=== PATIENT | female | born 1935 | race Two or more races ===

== ENCOUNTER 2019-07-25 19:47 | Emergency (ER) | payer MEDICARE, OTHER, SELFPAY ==
--- NOTE | ~2019-07-25 | CT_ITS ---
EXAMINATION: CT cervical spine wo con EXAM DATE: 07/25/2019 20:26 INDICATION: Fall, left posterior head injury and thin subdural hematoma. TECHNIQUE: Spiral CT of the cervical spine was performed without contrast. Axial images were reviewe d. Coronal and sagittal reformatted images were also reviewed. The dose-length product (DLP) for thi s examination was 115.53 mGy-cm. The exposure was tailored according to patient size (auto mA exposu re control), and iterative reconstruction (ASIR) was used as additional dose reduction technique. Th ere is no prior study for comparison. FINDINGS: There is no evidence of acute cervical fracture. The odontoid process is intact. Pre-dens space is normal. Prevertebral soft tissue is normal. There are no soft tissue abnormalities identi fied. The vertebral bodies are aligned. There is moderate lower cervical disc disease. Some advan tali right-sided predominant facet arthropathy. Small sclerotic focus within the left T1 pedicle proba jonatan bone [place]. There is a tiny left apical pneumothorax. IMPRESSION: 1. Tiny left apical pneumothorax. 2. No acute cervical findings. I discussed pneumothorax with Dr. Lisseth Elizondo MD at 07/25/2019 20:35 PET FEEDER. Reviewed, dictated and finalized at location A. FEEDER IMPRESSION: 1. Tiny left apical pneumothorax. 2. No acute cervical findings. I discussed pneumothorax with Dr. Lisseth Elizondo MD at 07/25/2019 20:35 PET FEEDER .
--- NOTE | ~2019-07-25 | XR_ITS ---
EXAMINATION: [id number] EXAM DATE: 07/25/2019 20:46 INDICATION: Fall, left rib pain laterally. TECHNIQUE: Frontal projection of the upper left ribs, frontal projection of the lower left ribs, obli que projection of the left ribs, frontal chest x-ray(s) for interpretation. There is no prior study for comparison. FINDINGS: Difficult to identify the tiny left-sided pneumothorax seen on CT scan. There are acute lef t fourth-seventh rib fractures laterally with mild displacement. Possible acute nondisplaced left eig hth rib fracture as well. There is no focal acute air space disease. There are no pleural effusions. Cardiomediastinal silhouette is normal. There is aortic arterial sclerosis. There are bony degenerati ve changes. IMPRESSION: 1. Can't identify tiny left apical pneumothorax seen on CT. Consider follow-up chest x-ray. 2. Left fourth-seventh rib fractures laterally. Possible nondisplaced eighth rib fracture. Reviewed, dictated and finalized at location A. CAL SCIENTIST IMPRESSION: 1. Can't identify tiny left apical pneumothorax seen on CT. Consider follow-up chest x-ray. 2. Left fourth-seventh rib fractures laterally. Possible nondisplaced eighth r ib fracture.
--- NOTE | ~2019-07-25 | CT_ITS ---
EXAMINATION: CT brain wo [facility] EXAM DATE: 07/25/2019 20:26 INDICATION: Fell. Posterior head injury, generalized neck pain. Temporary loss of consciousness. TECHNIQUE: Spiral CT of the head was performed without contrast. Axial, coronal and sagittal images were reviewed. The dose-length product (DLP) for this examination was 605.33 mGy-cm. The exposure w as tailored according to patient size, and iterative reconstruction (ASIR) was used as additional dos e reduction technique. Comparison is made to prior examination from 08/23/2008. FINDINGS: There is a thin acute subdural hematoma along the right side of the falx, measuring 3 mm in maximal thickness. No other acute hemorrhage within the head. Mild to moderate microangiopathy and m ild cerebral atrophy. Bilateral cataract surgery. There is small to moderate-sized left-sided scalp c ontusion. No underlying calvarial fracture. IMPRESSION: 1. Thin acute right-sided subdural hematoma along the falx. 2. Age-related findings. I discussed subdural hematoma with Lisseth Elizondo MD at 07/25/2019 20:32 BARTENDER MANAGER . Reviewed, dictated and finalized at location A. ENDER MANAGER IMPRESSION: 1. Thin acute right-sided subdural hematoma along the falx. 2. Age-related findings. I discussed subdural hematoma with Lisseth Elizondo MD at 07/25/2019 20:32 CS [place] .
--- NOTE | ~2019-07-25 | XR_ITS ---
EXAMINATION: XR hip LT 2V w AP pelvis EXAM DATE: 07/25/2019 20:46 INDICATION: Initial encounter following injury, with pain of the left hip. Fall. TECHNIQUE: Left hip frontal, crosstable lateral and 'frog-leg' projections for interpretation. Fronta l projection pelvis. Comparison is made to prior examination from 05/03/2019. FINDINGS: Smooth left hip femoral head contour, no radiographic evidence of avascular necrosis. The re are 3 left hip lag screws in position, were present on prior study. There is moderate symmetric bi lateral hip primary osteoarthritis. There are no acute fractures or dislocations identified. There i s no subcutaneous gas. The soft tissue is unremarkable. IMPRESSION: No acute osseous findings. Reviewed, dictated and finalized at location A. PACK INSPECTOR IMPRESSION: No acute osseous findings.
[2019-07-25 19:50] VITALS: BP 142/87; PULSE 78; RESP 18; TEMP 36.6; O2SAT 94
[2019-07-25 19:51] VITALS: BP 142/87; PULSE 77; RESP 20; O2SAT 92
[2019-07-25 19:52] VITALS: RESP 20
--- NOTE | 2019-07-25 20:01 | ED.FALL ---
HPI - Fall General Chief Complaint: Fall Stated Complaint: fall down stairs Time Seen by Provider: 07/25/19 20:02 Source: patient and family () Mode of arrival: EMS Limitations: no limitations History of Present Illness HPI Narrative: An 83 y/o female, with a PMHx of dementia, presents to the ED, via EMS, after a fall today. Per , he was downstairs when he heard a big crash . He found the pt unconscious on her left side at the bottom of the first set of 6 stairs. Pt was unconscious for about 45 seconds and pt states that she does not remember the fall. Pt did not get up and ambulate after the fall and waited for EMS to arrive to move. Pt is at her baseline in the ED bed. Pt is on ASA. She reports left rib pain, left shoulder pain, and a HI, but denies SOB, ABD pain, and numbness/tingling. Pt has a C-collar in place. Fall from: down stairs (#) Place fall occurred: home Loss of consciousness: yes Length of LOC: second(s) (45) Related Data Home Medications Medication Instructions Recorded Confirmed folic acid 1 mg tablet 1 mg PO DAILY 05/13/19 levothyroxine 88 mcg tablet 88 mcg PO DAILY 05/13/19 memantine 5 mg tablet 5 mg PO BID 05/13/19 methotrexate sodium 2.5 mg tablet 2.5 mg PO WEEKLY tablet 05/13/19 pantoprazole 40 mg tablet,delayed 40 mg PO QAM 05/13/19 release raloxifene 60 mg tablet 60 mg PO DAILY 05/13/19 tizanidine 2 mg tablet 2 mg PO .QHS PRN tablet 05/13/19 tramadol 50 mg tablet 50 mg PO Q8H PRN tablet 05/13/19 Allergies Allergy/AdvReac Type Severity Reaction Status Date / Time sulfamethizole Allergy Unknown Unknown Verified 07/20/19 14:34 sulfamethoxazole Allergy Unknown UNKNOWN Verified 07/20/19 14:34 trimethoprim Allergy Unknown Unknown Verified 07/20/19 14:34 Review of Systems Review of Systems: All systems reviewed & are unremarkable except as noted in HPI and below Constitutional: Comments: Reports: a fall Respiratory: Respiratory: Denies dyspnea Gastrointestinal: Gastrointestinal: Denies abdominal pain Musculoskeletal: Comments: Reports: left rib pain, left shoulder pain Neurologic: Denies numbness Comments: Reports: LOC, HI [facility] Past Medical History Medical History (Updated 07/25/19 @ 21:51 by Lisseth Elizondo MD) Aortic stenosis with trileaflet valve Dementia Hip fracture, left Impaired gait Memory loss Mixed hyperlipidemia Osteopenia Other specified hypothyroidism Pulmonary nodule, right Rheumatoid arthritis involving multiple sites with positive rheumatoid factor Seasonal allergies Spinal stenosis, 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 neurogenic claudication Status post fracture of left hip Surgical History Surgical History History of arthroplasty of left hip History of total right knee replacement Family History Family History Father Family history of lung cancer Mother Family history of emphysema Other Family history of arthritis Family history of malignant neoplasm Hypertension Social History Social History Smoking status: Never smoker Second hand tobacco smoke exposure: No Alcohol intake: current Substance use: never Substance use type: does not use Gender identity (if verbalized by the patient): Female Comments PCP: Dr. Lassiter Exam Narrative: Exam Narrative: GENERAL: Well-appearing, well-nourished, and in no acute distress. HEAD: Normocephalic, left posterior scalp hematoma EYES: PERRLA and EOMI, conjunctiva clear without discharge EARS: TM's clear bilaterally without erythema or dullness NOSE: Nares clear, no rhinorrhea or epistaxis THROAT:Mucous membranes moist, Oropharynx normal without erythema, exudate, peritonsillar swelling or fluctuance NECK:in c collar, no spine tenderness RESPIRATORY: No respiratory distress, Airway patent, Respirations non-labored, Clear to auscul
--- NOTE | 2019-07-25 20:08 | ECG_ITS ---
Measurements Intervals [place] Rate: 72 P: 11 IN: 137 QRS: -30 QRSD: 98 T: 64 QT: 437 QTc: 481 Interpretive Statements SINUS RHYTHM BASELINE ARTIFACT- I, III, AVL NORMAL ECG Electronically Signed On 07-26-2019 6:48:22 PATIENT SERVICES REP by Moises Bojorquez D.O.
[2019-07-25] MEDS: MORPHINE SULFATE 4 MG/ML INJ IV PUSH (20:15)
[2019-07-25] MEDS: ONDANSETRON INJ 4 MG/2 ML VIAL IV PUSH (20:15)
[2019-07-25 20:56] LABS: Basophils Percent Auto 0.2 % (0.2-1.2); Eosinophils Percent Auto 0.2 % (0-4.4); Hematocrit 39.5 % (37.0-47.0); Hemoglobin 12.9 g/dL (12.0-15.0); Immature Granulocyte Absolute 0.13 K/mm3 (0.00-0.031); Immature Granulocyte Percent A 1.5 % (0-0.5); Lymphocytes Absolute Auto 1.54 K/mm3 (0.9-3.2); Lymphocytes Percent Auto 18.1 % (18.3-44.2); Mean Corpuscular HGB Conc 32.7 g/dl (32-36); Mean Corpuscular Hemoglobin 29.7 pg (26-34); Mean Corpuscular Volume 90.8 fl (80-100); Mean Platelet Volume 10.9 fl (7.4-10.4); Monocytes Absolute Auto 0.8 K/mm3 (0.1-0.6); Monocytes Percent Auto 9.6 % (2.6-8.5); Neutrophils Percent Auto 70.4 % (45.5-73.1); Platelet Count Result 182 k/mm3 (150-375); Red Blood Count 4.35 M/mm3 (4.2-5.4); Red Cell Distribution Width 12.9 % (11.5-14.5); White Blood Count 8.5 K/mm3 (4.5-10.0)
[2019-07-25 21:09] LABS: Alanine Aminotransferase 23 U/L (4-35); Alkaline Phosphatase 69 U/L (38-126); Aspartate Amino Transferase 37 U/L (14-36); Bilirubin,Total 0.3 mg/dL (0.2-1.3); Blood Urea Nitrogen 17 mg/dL (7-17); Carbon Dioxide 31 mmol/L (22-30); Chloride 96 mmol/L (98-107); Estimated Glomerular Filt Rate 53; Glucose 114 mg/dL (65-105); Magnesium 2.1 mg/dL (1.6-2.3); Potassium 3.7 mmol/L (3.4-5.0); Sodium 135 mmol/L (137-145)
[2019-07-25 21:11] LABS: Prothrombin Time 12.9 Seconds (11.1-14.7)
[2019-07-25 21:12] LABS: Partial Thromboplastin Time 27.5 SECONDS (22.3-36.8)
[2019-07-25 21:20] LABS: Troponin I < 0.012 ng/mL (0.000-0.034)
[2019-07-25 21:23] VITALS: BP 154/95; PULSE 74; RESP 20; O2SAT 100
[2019-07-25] MEDS: levETIRAcetam 1000MG/NACL100ML 1,000 MG/100 ML BAG 400 MG IVPB (21:41)
[2019-07-25 21:58] VITALS: BP 154/95; PULSE 75; RESP 20; O2SAT 100
== END 2019-07-25 22:01 | disposition short-term general hospital (02) ==
PROVIDERS: Emergency Provider General Practice; PCP Family Medicine
DX: S06.5X1A Traumatic subdural hemorrhage with loss of consciousness of 30 minutes or less, initial encounter (principal); S22.42XA Multiple fractures of ribs, left side, initial encounter for closed fracture; F03.90 Unspecified dementia, unspecified severity, without behavioral disturbance, psychotic disturbance, mood disturbance, and anxiety; E78.2 Mixed hyperlipidemia; M85.80 Other specified disorders of bone density and structure, unspecified site; M05.89 Other rheumatoid arthritis with rheumatoid factor of multiple sites; Z96.651 Presence of right artificial knee joint; Z79.82 Long term (current) use of aspirin; W10.9XXA Fall (on) (from) unspecified stairs and steps, initial encounter
CPT/HCPCS: 36415; 70450; 71101; 72125; 73502; 73521; 80053; 83735; 84484; 85025; 85610; 85730; 93005; 96365; 96375; 99291; J1953; J2270; J2405; L0140

== ENCOUNTER 2019-10-26 10:42 | Outpatient (CLI) | payer MEDICARE, OTHER, SELFPAY ==
--- NOTE | ~2019-10-26 | XR_ITS ---
XR hand LT 2V, XR wrist LT 2V 10/26/2019 14:48 Indication: Left hand and wrist pain after fall. Bruising posteriorly. Procedure: 2 views of the left hand and 2 views left wrist Comparison: No prior studies for comparison. Findings: Osteopenia. There is mild-moderate polyarticular osteoarthritis of the left wrist and hand, most advanced at the triscaphe, first CMC and first MCP joints. There is loose bodies adjacent to th e first CMC joint. No acute fracture or traumatic malalignment. Impression: 1: Mild-moderate polyarticular osteoarthritis. Reviewed, dictated and finalized at location A. Impression: 1: Mild-moderate polyarticular osteoarthritis. Impression: 1: Mild-moderate polyarticular osteoarthritis.
== END 2019-10-26 10:43 | disposition home or self-care (01) ==
LOC: ANHIMG 10:51
PROVIDERS: PCP Family Medicine; Visit Provider Family Medicine
DX: T14.90XA Injury, unspecified, initial encounter (principal); R52 Pain, unspecified; M19.032 Primary osteoarthritis, left wrist
CPT/HCPCS: 73100; 73120

== ENCOUNTER 2019-11-11 14:24 | Outpatient (CLI) | payer MEDICARE, OTHER, SELFPAY ==
--- NOTE | ~2019-11-11 | XR_ITS ---
XR femur LT min 2V DATE: 11/11/2019 14:48 INDICATION: Fall 5 days ago. Pain, ecchymosis TECHNIQUE: AP and lateral views of left femur COMPARISON: None FINDINGS: There are 3 pins through the proximal left femur. There is left knee arthroplasty. Diffuse osteopenia. There are some patchy sclerotic densities in the distal femoral shaft which may be due to bone infarc t or less likely benign cartilaginous tumor. No recent fracture or dislocation, periosteal reaction or bone destruction is evident. IMPRESSION: No recent fracture or dislocation Postoperative changes of the left hip and knee Reviewed, dictated and finalized at location A.
--- NOTE | ~2019-11-11 | XR_ITS ---
XR pelvis 1-2V DATE: 11/11/2019 14:48 INDICATION: Fall 5 days ago. Pelvic pain, ecchymosis. TECHNIQUE: AP view COMPARISON: 11/11/2019 left femur 07/25/2019 pelvis and left hip FINDINGS: There are 3 pins again noted in the proximal left femur. No pelvic fracture or bone destruction is evident. Normal alignment at the pubic symphysis and sacroi liac joints. There is a prominent amount of fecal material within the colon and rectum. IMPRESSION: Status post pinning of proximal left femur No pelvic fracture detected Prominent amount fecal material in the rectum and colon Reviewed, dictated and finalized at location A.
== END 2019-11-11 14:25 | disposition home or self-care (01) ==
LOC: ANHIMG 14:35
PROVIDERS: PCP Family Medicine; Visit Provider Family Medicine
DX: R58 Hemorrhage, not elsewhere classified (principal)
CPT/HCPCS: 72170; 73552

== ENCOUNTER 2020-08-07 09:43 | Outpatient (CLI) | payer MEDICARE, OTHER, SELFPAY ==
[2020-08-07 10:08] LABS: Basophils Percent Auto 0.4 % (0.2-1.2); Eosinophils Absolute Auto 0.1 K/mm3 (0-0.3); Hematocrit 38.7 % (37.0-47.0); Hemoglobin 12.4 g/dL (12.0-15.0); Immature Granulocyte Absolute 0.04 K/mm3 (0.00-0.031); Immature Granulocyte Percent A 0.8 % (0-0.5); Lymphocytes Absolute Auto 1.79 K/mm3 (0.9-3.2); Lymphocytes Percent Auto 37.2 % (18.3-44.2); Mean Corpuscular Hemoglobin 30.6 pg (26-34); Mean Corpuscular Volume 95.6 fl (80-100); Mean Platelet Volume 10.3 fl (7.4-10.4); Monocytes Absolute Auto 0.7 K/mm3 (0.1-0.6); Monocytes Percent Auto 13.9 % (2.6-8.5); Neutrophils Absolute Auto 2.2 K/mm3 (1.3-6.7); Neutrophils Percent Auto 46.7 % (45.5-73.1); Platelet Count Result 211 k/mm3 (150-375); Red Blood Count 4.05 M/mm3 (4.2-5.4); Red Cell Distribution Width 14.1 % (11.5-14.5); White Blood Count 4.8 K/mm3 (4.5-10.0)
[2020-08-07 11:04] LABS: Alanine Aminotransferase 16 U/L (4-35); Albumin Level 3.9 g/dL (3.5-5.1); Alkaline Phosphatase 55 U/L (38-126); Anion Gap 5 mmol/L (8-16); Aspartate Amino Transferase 27 U/L (14-36); Bilirubin,Total 0.4 mg/dL (0.2-1.3); Blood Urea Nitrogen 18 mg/dL (7-17); Calcium 9.3 mg/dL (8.4-10.2); Carbon Dioxide 31 mmol/L (22-30); Chloride 106 mmol/L (98-107); Estimated Glomerular Filt Rate 47; Glucose 81 mg/dL (65-105); Potassium 4.2 mmol/L (3.4-5.0); Sodium 142 mmol/L (137-145)
[2020-08-07 11:38] LABS: Free T4 Free Thyroxine 1.22 ng/mL (0.78-2.19)
[2020-08-07 12:00] LABS: Vitamin B12 > 1000.0 pg/mL (239-931)
[2020-08-10 11:43] LABS: Vitamin D 1,25 (OH)2 Total 42 pg/mL (18-72); Vitamin D2 1,25 (OH)2 <8 pg/mL; Vitamin D3 1,25 (OH)2 42 pg/mL
== END 2020-08-07 09:44 | disposition home or self-care (01) ==
PROVIDERS: PCP Family Medicine; Visit Provider Physician Assistant
DX: E55.9 Vitamin D deficiency, unspecified (principal); I10 Essential (primary) hypertension; E03.8 Other specified hypothyroidism; G62.9 Polyneuropathy, unspecified
CPT/HCPCS: 36415; 80053; 82607; 82652; 84439; 84443; 85025

== ENCOUNTER 2020-08-31 13:59 | Outpatient (CLI) | payer MEDICARE, OTHER, SELFPAY ==
--- NOTE | ~2020-08-31 | DEXA_ITS ---
Bone Density Report Name: Hortencia Loaiza Age: 84 Sex: Female Ethnicity: White Date of : 1935 Indication: osteopenia; height loss; hysterectomy; Referring Provider: Ernestina Veloz Study: Bone densitometry was performed. Exam Date: August 31, 2020 Accession number: [id number] Bone Density: Region BMD T-score Z-score Classification AP Spine (L1-L4) 1.048 0.0 2.8 Normal Femoral Neck (Right) 0.572 -2.5 0.0 Osteoporosis Total Hip (Right) 0.677 -2.2 0.1 Osteopenia World Health Organization criteria for BMD impression classify patients as: Normal (T-score at or above -1.0), Osteopenia (T-score between -1.0 and -2.5), or Osteoporosis (T-score at or below -2.5). 10-year Fracture Risk: FRAX not reported because: Some T-score for Spine Total or Hip Total or Femoral Neck at or below -2.5 Previous Exams: Region Exam Age BMD T-score BMD Change BMD Change Date g/cm2 vs Baseline vs Previous AP Spine(L1-L4) 08/31/2020 84 1.048 0.0 0.010(1.0%) 0.010(1.0%) 08/23/2014 78 1.038 -0.1 Total Hip(Right) 08/31/2020 84 0.677 -2.2 -0.023(-3.3%)# -0.076(-10.1%) 08/23/2014 78 0.753 -1.5 0.053(7.6%)# 0.053(7.6%)# 09/06/2009 73 0.700 -2.0 *Denotes significance at 95% confidence level, LSC for AP Spine = 0.022 g/cm2, LSC for Total Hip = 0.027 g/cm2 Clinical Information Provided by Patient: Has used the following medications: Vitamin D, Calcium Has the following medical conditions: Hysterectomy Patient maximum height was 68 Menopause Age: 47 Drinks caffeinated beverages Onset of menses at age 16 Number of children 3 Impression: The patient has osteoporosis, based on the Right Femoral Neck T-score. The BMD for the Total Hip(Right) decreased, changing by -10.1% since the last DXA exam. Discussion: INCREASED RISK OF FRACTURE. BONE DENSITY IS UNDESIRABLY LOW AT ONE OR MORE SKELETAL SITES, CONSISTENT WITH POSTMENOPAUSAL OSTEOPOROSIS. This patient's lowest T-score meets the World Health Organization's (WHO) criteria for osteoporosis at one or more sites (T-score -2.5 or below). In untreated patients, the risk of osteoporotic fracture increases approximately two-fold for each 1.0 SD decrease in T-score. Low bone density is not the only risk factor for fracture; also consider factors such as patient's age, frailty or poor health, risk of falling, risk of injury, previous osteoporotic fracture, family history of osteoporosis, cigarette smoking, low body weight, etc. Not everyone with low bone mineral density has os
== END 2020-08-31 14:00 | disposition home or self-care (01) ==
LOC: ANHIMG 14:01
PROVIDERS: PCP Family Medicine; Visit Provider Physician Assistant
DX: Z78.0 Asymptomatic menopausal state (principal); M81.0 Age-related osteoporosis without current pathological fracture; M85.851 Other specified disorders of bone density and structure, right thigh
CPT/HCPCS: 77080

== ENCOUNTER 2022-03-08 13:51 | Outpatient (CLI) | payer MEDICARE, OTHER, SELFPAY ==
[2022-03-08 14:47] LABS: Alanine Aminotransferase 20 U/L (6-35); Albumin Level 4.1 g/dL (3.5-5.1); Alkaline Phosphatase 68 U/L (38-126); Anion Gap 9 mmol/L (8-16); Aspartate Amino Transferase 25 U/L (14-36); Bilirubin,Total 0.3 mg/dL (0.2-1.3); Blood Urea Nitrogen 15 mg/dL (7-17); Calcium 9.1 mg/dL (8.4-10.2); Carbon Dioxide 28 mmol/L (22-30); Chloride 102 mmol/L (98-107); Estimated Glomerular Filt Rate 47; Glucose 103 mg/dL (65-110); Potassium 3.9 mmol/L (3.4-5.0); Sodium 139 mmol/L (137-145)
[2022-03-08 15:37] LABS: Free T4 Free Thyroxine 1.22 ng/mL (0.78-2.19)
[2022-03-09 07:44] LABS: Basophils Percent Auto 0.3 % (0.2-1.2); Eosinophils Percent Auto 0.5 % (0-4.4); Hematocrit 41.7 % (37.0-47.0); Hemoglobin 13.1 g/dL (12.0-15.0); Immature Granulocyte Absolute 0.04 K/mm3 (0.00-0.031); Immature Granulocyte Percent A 0.6 % (0-0.5); Lymphocytes Percent Auto 29.2 % (18.3-44.2); Mean Corpuscular HGB Conc 31.4 g/dl (32-36); Mean Corpuscular Hemoglobin 30.7 pg (26-34); Mean Corpuscular Volume 97.7 fl (80-100); Mean Platelet Volume 11.4 fl (7.4-10.4); Monocytes Absolute Auto 1.1 K/mm3 (0.1-0.6); Neutrophils Absolute Auto 3.2 K/mm3 (1.3-6.7); Neutrophils Percent Auto 52.4 % (45.5-73.1); Platelet Count Result 230 k/mm3 (150-375); Red Blood Count 4.27 M/mm3 (4.2-5.4); Red Cell Distribution Width 14.1 % (11.5-14.5); White Blood Count 6.2 K/mm3 (4.5-10.0)
== END 2022-03-08 13:52 | disposition home or self-care (01) ==
LOC: ANHLAB 13:58
PROVIDERS: PCP Family Medicine; Visit Provider Nurse Practitioner Gerontology
DX: M85.80 Other specified disorders of bone density and structure, unspecified site (principal); N18.30 Chronic kidney disease, stage 3 unspecified; M32.9 Systemic lupus erythematosus, unspecified; I12.9 Hypertensive chronic kidney disease with stage 1 through stage 4 chronic kidney disease, or unspecified chronic kidney disease; F03.90 Unspecified dementia, unspecified severity, without behavioral disturbance, psychotic disturbance, mood disturbance, and anxiety; R79.89 Other specified abnormal findings of blood chemistry; F32.9 Major depressive disorder, single episode, unspecified; E78.2 Mixed hyperlipidemia
CPT/HCPCS: 36415; 80053; 84439; 84443; 84480; 85025

== ENCOUNTER 2022-05-11 21:47 | Emergency (ER) | payer MEDICARE, OTHER, SELFPAY ==
--- NOTE | ~2022-05-11 | CT_ITS ---
EXAMINATION: CT brain wo con INDICATION: Weakness and lethargy COMPARISON: 07/25/2019 TECHNIQUE: Standard unenhanced head CT. The dose-length product (DLP) was 605.33 mGy-cm. The mA was a djusted according to patient size. Iterative reconstruction technique was employed. FINDINGS: There is no acute intraparenchymal hemorrhage. No evidence of mass lesion. No evidence of a cute infarction. There is moderate periventricular and subcortical hypodensity probably related to sm all vessel ischemic disease. There is moderate prominence of the sulci and ventricles related to cere bral atrophy. Intracranial calcified cerebral atherosclerosis is noted. There are no extra-axial luiz ections. There is no mass effect or midline shift. Changes in the globes are likely from ocular lens surgery. There is moderate mucosal thickening in the right maxillary sinus and ethmoidal air cells. IMPRESSION: 1. No acute intracranial abnormality. 2. Age related findings. Reviewed, dictated and finalized at location A. NE SERVICE MANAGER
--- NOTE | ~2022-05-11 | XR_ITS ---
EXAMINATION: XR chest 2V DATE: 05/12/2022 01:10 INDICATION: Cough and weakness TECHNIQUE: AP and lateral views of the chest are obtained. COMPARISON: 04/23/2018 FINDINGS: The lungs are free of acute opacities. There is scarring in the lung apices. No pleural eff usion or pneumothorax. The cardiomediastinal silhouette is normal. There is mild thoracic spondylosis . Healed left-sided rib fractures are noted. IMPRESSION: 1. No acute cardiopulmonary abnormality. Reviewed, dictated and finalized at location A. R TRANSFORMER REPAIRER
[2022-05-11 21:49] VITALS: BP 146/77; PULSE 76; RESP 18; TEMP 37.6; O2SAT 94
--- NOTE | 2022-05-11 21:51 | ECG_ITS ---
Measurements Intervals [place] Rate: 89 P: 10 CA: 150 QRS: -35 QRSD: 84 T: 58 QT: 373 QTc: 455 Interpretive Statements SINUS RHYTHM INFERIOR INFARCT, AGE INDETERMINATE BORDERLINE ST-T WAVE ABNORMALITY- ANTEROLAT/HIGH LAT LEADS BASELINE ARTIFACT- I, III, AVL ABNORMAL ECG COMPARED TO ECG 07/25/2019 19:55:47 INFERIOR INFARCT, AGE INDETERMINATE NOW PRESENT Electronically Signed On 05-12-2022 7:14:05 SET UP MECHANIC STAMPING MACHINES by Moises Bojorquez D.O.
[2022-05-11 22:15] LABS: Basophils Percent Auto 0.3 % (0.2-1.2); Eosinophils Percent Auto 0.3 % (0-4.4); Hematocrit 41.2 % (37.0-47.0); Hemoglobin 13.6 g/dL (12.0-15.0); Immature Granulocyte Absolute 0.03 K/mm3 (0.00-0.031); Immature Granulocyte Percent A 0.8 % (0-0.5); Lymphocytes Absolute Auto 0.64 K/mm3 (0.9-3.2); Lymphocytes Percent Auto 16.3 % (18.3-44.2); Mean Corpuscular Hemoglobin 30.8 pg (26-34); Mean Corpuscular Volume 93.4 fl (80-100); Mean Platelet Volume 10.6 fl (7.4-10.4); Monocytes Absolute Auto 0.7 K/mm3 (0.1-0.6); Monocytes Percent Auto 17.6 % (2.6-8.5); Neutrophils Absolute Auto 2.5 K/mm3 (1.3-6.7); Neutrophils Percent Auto 64.7 % (45.5-73.1); Platelet Count Result 174 k/mm3 (150-375); Red Blood Count 4.41 M/mm3 (4.2-5.4); Red Cell Distribution Width 14.2 % (11.5-14.5); White Blood Count 3.9 K/mm3 (4.5-10.0)
[2022-05-11 22:25] LABS: Alanine Aminotransferase 24 U/L (6-35); Albumin Level 4.4 g/dL (3.5-5.1); Alkaline Phosphatase 65 U/L (38-126); Anion Gap 11 mmol/L (8-16); Aspartate Amino Transferase 31 U/L (14-36); Bilirubin,Total 0.6 mg/dL (0.2-1.3); Blood Urea Nitrogen 12 mg/dL (7-17); Calcium 8.5 mg/dL (8.4-10.2); Carbon Dioxide 27 mmol/L (22-30); Chloride 97 mmol/L (98-107); Estimated CRCL calculation 45 ml/min; Estimated Glomerular Filt Rate 60; Glucose 121 mg/dL (65-110); Potassium 4.1 mmol/L (3.4-5.0); Sodium 135 mmol/L (137-145)
--- NOTE | 2022-05-11 22:56 | ED.WEAKNESS ---
HPI - Weakness General Chief complaint: Weakness <Eli Aponte PA-C - Last Filed: 05/12/22 03:21> Stated complaint: weakness <Eli Aponte PA-C - Last Filed: 05/12/22 03:21> Time Seen by Provider: 05/11/22 22:50 <Eli Aponte PA-C - Last Filed: 05/12/22 03:21> History of Present Illness HPI Narrative: Patient is an 86-year-old female with a history of Alzheimer's dementia, on donezepil, hypothyroidism, here for evaluation with her for weakness today. History largely obtained from . Tells me that patient has been unable to complete her ADLs today, has had decreased appetite, and has felt too weak to walk. States that yesterday she was feeling normal aside from a cough. Patient tells me that she just feels blah . She denies any chest pain, shortness of breath, abdominal pain, nausea or vomiting, diarrhea or constipation. Patient's is experiencing upper respiratory symptoms. tells me that patient has a history of dementia and prior hip fracture and is chronically unstable on her feet but is usually able to ambulate without assistance. <Eli Aponte PA-C - Last Filed: 05/12/22 03:21> Related Data Allergies/Adverse reactions: Allergies Allergy/AdvReac Type Severity Reaction Status Date / Time sulfamethizole Allergy Unknown Unknown Verified 03/08/22 13:21 sulfamethoxazole Allergy Unknown UNKNOWN Verified 03/08/22 13:21 trimethoprim Allergy Unknown Unknown Verified 03/08/22 13:21 <Eli Aponte PA-C - Last Filed: 05/12/22 03:21> Review of Systems Review of Systems: Gen.: Reports weakness. Denies fevers or chills Eyes: Denies eye pain or visual change ENT: Denies congestion Respiratory: Denies shortness of breath or cough CV: Denies chest pain or palpitations GI: Denies abdominal pain nausea, emesis or diarrhea denies burning, urgency, frequency or hematuria Musculoskeletal: Denies back pain or muscle pain Neuro: Denies numbness, tingling, weakness or focal weakness Skin: Denies rash Except as documented, all other systems reviewed and negative <Eli Aponet PA-C - Last Filed: 05/12/22 03:21> [facility] Past Medical History Medical History: Medical History Aortic stenosis with trileaflet valve Balance problem Benign essential HTN Dementia Dementia arising in the senium and presenium GERD (gastroesophageal reflux disease) Hematoma, subdural, with loss of consciousness, traumatic Hip fracture, left Impaired gait Lupus (systemic lupus erythematosus) Major depressive disorder, recurrent, moderate Memory loss Mixed hyperlipidemia Osteopenia Other specified hypothyroidism Pulmonary nodule, right Rheumatoid arthritis involving multiple sites with positive rheumatoid factor Seasonal allergies Spinal stenosis, 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 neurogenic claudication Status post fracture of left hip <Eli Aponte PA-C - Last Filed: 05/12/22 03:21> Surgical History Surgical History: Surgical History History of arthroplasty of left hip History of total right knee replacement <Eli Aponte PA-C - Last Filed: 05/12/22 03:21> Family History Family History: Family History Father Family history of lung cancer Mother Family history of emphysema Other Family history of arthritis Family history of malignant neoplasm Hypertension <Eli Aponte PA-C - Last Filed: 05/12/22 03:21> Social History Social History: Social History (Updated 03/08/22 @ 13:22 by Kathia Dumont) Social History: Smoking status: Never smoker Second hand tobacco smoke exposure: No Alcohol intake: current Alcohol use details: Occasionally Substance use: never Substance use type: does not use Gender
--- NOTE | 2022-05-11 22:58 | PC.NURSE ---
Talked to Stephy in lab at 22:57 to add on TSH
[2022-05-11 23:01] LABS: Influenza A QL RT-PCR Negative (Negative); Influenza B QL RT-PCR Negative (Negative); SARS-CoV-2 RNA PCR Negative
[2022-05-11] MEDS: SODIUM CHLORIDE 0.9% IV 1,000 ML 999 ML IV CONT (23:30)
[2022-05-12 00:03] LABS: Creatine Kinase 32 U/L (30-135); Lactic Acid Reflex 0.9 mmol/L (0.7-2.0)
[2022-05-12 00:59] LABS: Appearance Urine Clear (Clear); Bilirubin Urine 1+ (Negative); Blood Urine 2+ (Negative); Color Urine Yellow (Yellow); Glucose Urine UA Negative (Negative); Ketones Urine 1+ mg/dL (Negative); Leukocyte Esterase Ur Negative LEU/UL (Negative); Nitrate Urine Negative (Negative); Protein Urine 1+ mg/dL (Negative); Specific Grav Ur 1.025 (1.001-1.035); pH Urine 5.5 (5.0-9.0)
[2022-05-12 01:19] LABS: Bacteria Urine Trace /hpf; Mucus Urine Rare /lpf; Squamous Epithelial Cell Urine Rare /hpf (Few); WBC Urine 0-3 /hpf
[2022-05-12 01:21] LABS: Add Urine Microscopic? YES
[2022-05-12] MEDS: SODIUM CHLORIDE 0.9% IV 500 ML 999 ML IV CONT (01:44)
[2022-05-12 01:45] VITALS: BP 137/78; PULSE 62; RESP 18; O2SAT 95
--- NOTE | 2022-05-12 03:05 | PC.NURSE ---
Pt ambulated in room with assist of walker, which she uses at home.
== END 2022-05-12 04:40 | disposition home or self-care (01) ==
PROVIDERS: Physician Assistant; Emergency Provider Emergency Medicine; PCP Family Medicine
DX: B34.9 Viral infection, unspecified (principal); G30.9 Alzheimer's disease, unspecified; F02.80 Dementia in other diseases classified elsewhere, unspecified severity, without behavioral disturbance, psychotic disturbance, mood disturbance, and anxiety; E03.9 Hypothyroidism, unspecified; I10 Essential (primary) hypertension; E78.2 Mixed hyperlipidemia; Z20.822 Contact with and (suspected) exposure to COVID-19
CPT/HCPCS: 36415; 70450; 71046; 80053; 81001; 82550; 83605; 84443; 85025; 87636; 93005; 96360; 96361; 99284; J7030; J7040

== ENCOUNTER 2022-07-24 14:44 | Outpatient (CLI) | payer MEDICARE, OTHER, SELFPAY ==
--- NOTE | ~2022-07-24 | XR_ITS ---
EXAMINATION: XR chest 2V Exam Date/Time: 07/24/2022 15:20 INSTRUMENT REPAIRER HISTORY: N18.30 - Chronic kidney disease, stage 3 unspecified Comparison: 07/12/2021. RESULT: Lines, tubes, and devices: None. Lungs and pleura: Ill-defined, approximate the 3 cm rounded opacity in the right lower lung, possibl y located within the inferior right middle lobe along the major fissure. Senescent changes. Mild bila teral apical pleural scarring. Cardiomediastinal silhouette: Stable. Other: No acute osseous or upper abdominal finding. Old left rib fractures. IMPRESSION: Rounded opacity, possibly within the right middle lobe, may represent the consolidation of infection, rounded atelectasis, or nodule/mass. If there are current symptoms of infection, recommend follow-up after appropriate therapy to demonstrate resolution. Otherwise consider CT of the chest with contras t for further evaluation. Reviewed, dictated and finalized at location K. RUMENT REPAIRER IMPRESSION: Rounded opacity, possibly within the right middle lobe, may represent the conso lidation of infection, rounded atelectasis, or nodule/mass. If there are curren t symptoms of infection, recommend follow-up after appropriate therapy to demon strate resolution. Otherwise consider CT of the chest with contrast for further evaluation.
[2022-07-24 15:22] LABS: Basophils Percent Auto 0.1 % (0.2-1.2); Eosinophils Percent Auto 0.1 % (0-4.4); Hematocrit 41.1 % (37.0-47.0); Hemoglobin 13.4 g/dL (12.0-15.0); Immature Granulocyte Absolute 0.06 K/mm3 (0.00-0.031); Immature Granulocyte Percent A 0.8 % (0-0.5); Lymphocytes Absolute Auto 1.66 K/mm3 (0.9-3.2); Lymphocytes Percent Auto 22.1 % (18.3-44.2); Mean Corpuscular HGB Conc 32.6 g/dl (32-36); Mean Corpuscular Hemoglobin 30.8 pg (26-34); Mean Corpuscular Volume 94.5 fl (80-100); Mean Platelet Volume 10.7 fl (7.4-10.4); Monocytes Absolute Auto 1.1 K/mm3 (0.1-0.6); Monocytes Percent Auto 15.2 % (2.6-8.5); Neutrophils Absolute Auto 4.6 K/mm3 (1.3-6.7); Neutrophils Percent Auto 61.7 % (45.5-73.1); Platelet Count Result 195 k/mm3 (150-375); Red Blood Count 4.35 M/mm3 (4.2-5.4); Red Cell Distribution Width 14.3 % (11.5-14.5); White Blood Count 7.5 K/mm3 (4.5-10.0)
[2022-07-24 15:34] LABS: Alanine Aminotransferase 19 U/L (6-35); Albumin Level 4.2 g/dL (3.5-5.1); Alkaline Phosphatase 60 U/L (38-126); Anion Gap 7 mmol/L (8-16); Aspartate Amino Transferase 25 U/L (14-36); Bilirubin,Total 0.8 mg/dL (0.2-1.3); Blood Urea Nitrogen 11 mg/dL (7-17); Carbon Dioxide 30 mmol/L (22-30); Chloride 100 mmol/L (98-107); Estimated Glomerular Filt Rate 60; Glucose 111 mg/dL (65-110); Potassium 4.1 mmol/L (3.4-5.0); Sodium 137 mmol/L (137-145)
[2022-07-24 16:04] LABS: Total Triiodothyronine (T3) 1.05 NG/ML (0.97-1.69)
[2022-07-24 16:43] LABS: Hemoglobin A1C 5.4 % (<5.7)
[2022-07-24 16:49] LABS: Free T4 Free Thyroxine 1.32 ng/mL (0.78-2.19)
[2022-07-27 21:15] LABS: Vitamin D 1,25 (OH)2 Total 60 pg/mL (18-72); Vitamin D2 1,25 (OH)2 <8 pg/mL; Vitamin D3 1,25 (OH)2 60 pg/mL
== END 2022-07-24 14:45 | disposition home or self-care (01) ==
LOC: ANHLAB 14:46
PROVIDERS: PCP Family Medicine; Visit Provider Nurse Practitioner Gerontology
DX: G30.9 Alzheimer's disease, unspecified (principal); F02.80 Dementia in other diseases classified elsewhere, unspecified severity, without behavioral disturbance, psychotic disturbance, mood disturbance, and anxiety; R79.89 Other specified abnormal findings of blood chemistry; M05.79 Rheumatoid arthritis with rheumatoid factor of multiple sites without organ or systems involvement; E03.8 Other specified hypothyroidism; R41.3 Other amnesia; E55.9 Vitamin D deficiency, unspecified; E78.2 Mixed hyperlipidemia; R30.0 Dysuria; I12.9 Hypertensive chronic kidney disease with stage 1 through stage 4 chronic kidney disease, or unspecified chronic kidney disease; N18.30 Chronic kidney disease, stage 3 unspecified
CPT/HCPCS: 36415; 71046; 80053; 82607; 82652; 83036; 84439; 84443; 84480; 85025

== ENCOUNTER 2022-07-25 12:19 | Outpatient (CLI) | payer MEDICARE, OTHER, SELFPAY ==
[2022-07-25 12:39] LABS: Appearance Urine Slightly Cloudy (Clear); Bilirubin Urine Negative (Negative); Blood Urine 2+ (Negative); Color Urine Yellow (Yellow); Glucose Urine UA Negative (Negative); Ketones Urine Negative (Negative); Leukocyte Esterase Ur Negative LEU/UL (Negative); Nitrate Urine Negative (Negative); Protein Urine Negative (Negative); Specific Grav Ur 1.015 (1.001-1.035); Urobilinogen Urine 0.2 mg/dL (<2.0); pH Urine 5.5 (5.0-9.0)
[2022-07-25 12:49] LABS: Mucus Urine Rare /lpf; RBC Urine 0-2 /hpf (0-2); WBC Urine 0-3 /hpf
[2022-07-25 12:58] LABS: Add Urine Microscopic? YES
== END 2022-07-25 12:20 | disposition home or self-care (01) ==
LOC: ANHLAB 12:22
PROVIDERS: PCP Family Medicine; Visit Provider Family Medicine
DX: R30.0 Dysuria (principal)
CPT/HCPCS: 81001

== ENCOUNTER 2022-08-06 14:23 | Outpatient (CLI) | payer MEDICARE, OTHER, SELFPAY ==
--- NOTE | 2022-08-06 14:36 | ECHO_ITS ---
Patient Info Name: Hortencia Loaiza Age: 86 years : 1935 Gender: Female Ht: 67 in Wt: 144 lbs BSA: 1.76 m2 HR: 89 bpm BP: 163 / 89 mmHg Heart Rhythm: Sinus Rhythm Technical Quality: Fair Exam Date: 08/06/2022 2:59 PM Exam Location: [facility] Patient Status: Outpatient Admit Date: 08/06/2022 Staff Ordering Physician: Kathia Jones NP Hand Candy Molder: Tawny Mack RDCS Attending Provider: Kathia Jones NP Referring Physician: Karen NOBLE; Exam Type: CA echo doppler color flow Study Info Indications I35.0 - Nonrheumatic aortic (valve) stenosis Complete two-dimensional, color flow and Doppler transthoracic echocardiogram is performed. Summary 1. Complete two-dimensional, color flow and Doppler transthoracic echocardiogram is performed. 2. Left ventricular chamber dimension is normal. 3. Left ventricular systolic function is normal, estimated at 65-70%. 4. The left ventricular diastolic function is grade I diastolic dysfunction. 5. E/e' 12 is mildly elevated. 6. There is moderate aortic valve sclerosis. 7. There is very mild aortic valve stenosis with a peak velocity of 206 cm/s, mean gradient of 10 mmHg, and aortic valve area of 2.6 cm2. 8. The mitral valve has mildly thickened leaflets and moderately calcified annulus. Left Ventricle E/e' 12 is mildly elevated. Left ventricular chamber dimension is normal. Left ventricular systolic function is normal, estimated at 65-70%. The left ventricular diastolic function is grade I diastolic dysfunction. Right Ventricle Right ventricular systolic function is normal and with normal TAPSE 1.9 cm. Right ventricular chamber dimension is normal. Left Atria Left atrial chamber dimension is normal. Right Atria Right atrial chamber dimension is normal. Aortic Valve There is very mild aortic valve stenosis with a peak velocity of 206 cm/s, mean gradient of 10 mmHg, and aortic valve area of 2.6 cm2. The aortic valve is trileaflet. There is moderate aortic valve sclerosis. There is no aortic valve regurgitation. Pulmonic Valve There is no pulmonic regurgitation. Mitral Valve The mitral valve has mildly thickened leaflets and moderately calcified annulus. There is no mitral valve stenosis. There is no mitral valve regurgitation. Tricuspid Valve There is no tricuspid valve regurgitation. Pericardium/Pleural There is no pericardial effusion. Inferior Vena Cava Normal inferior vena cava with >50% collapse upon inspiration consistent with normal right atrial pressure, 5 mmHg. Aorta The aortic root size at the sinus of Valsalva is normal. Left Ventricular Outflow Tract Name Value Normal LVOT 2D LVOT Diameter 2.0 cm LVOT Doppler LVOT Peak Gradient 7 mmHg LVOT Mean Gradient 4 mmHg LVOT VTI 26 cm LVOT VTI/AV VTI Ratio 0.8 LVOT Stroke Volume 81 ml LVOT CO 6.6 l/min LVOT CI 3.7 l/min/m2 Pulmoni
== END 2022-08-06 14:24 | disposition home or self-care (01) ==
LOC: ANHCARD 14:25
PROVIDERS: PCP Family Medicine; Visit Provider Nurse Practitioner Gerontology
DX: I35.0 Nonrheumatic aortic (valve) stenosis (principal); Z98.890 Other specified postprocedural states
CPT/HCPCS: 93306

== ENCOUNTER 2022-08-15 09:50 | Outpatient (CLI) | payer MEDICARE, OTHER, SELFPAY ==
[2022-08-15 10:24] LABS: Appearance Urine Cloudy (Clear); Bilirubin Urine 1+ (Negative); Blood Urine 3+ (Negative); Color Urine Yellow (Yellow); Glucose Urine UA Negative (Negative); Ketones Urine 1+ mg/dL (Negative); Leukocyte Esterase Ur 2+ LEU/UL (Negative); Nitrate Urine Negative (Negative); Protein Urine 3+ mg/dL (Negative); pH Urine 6.5 (5.0-9.0)
[2022-08-15 10:27] LABS: Bacteria Urine 2+ /hpf; Mucus Urine Rare /lpf; RBC Urine >75 /hpf (0-2); Squamous Epithelial Cell Urine Few /hpf (Few); WBC Clumps Urine Present /HPF; WBC Urine >75 /hpf
[2022-08-15 10:32] LABS: Add Urine Microscopic? YES
== END 2022-08-15 09:51 | disposition home or self-care (01) ==
LOC: ANHLAB 09:52
PROVIDERS: PCP Family Medicine; Visit Provider Nurse Practitioner Gerontology
DX: R31.9 Hematuria, unspecified (principal)
CPT/HCPCS: 81001; 87077; 87086; 87186

== ENCOUNTER 2022-08-30 10:31 | Outpatient (CLI) | payer MEDICARE, OTHER, SELFPAY ==
--- NOTE | ~2022-08-30 | XR_ITS ---
EXAMINATION: XR chest 2V 08/30/2022 10:53 INDICATION: Follow-up right chest asymmetries PROCEDURE: 2 view chest COMPARISON: 07/24/2022 FINDINGS: The lungs are clear. Interval resolution of focal asymmetry in the right middle lobe, likel y resolving atelectasis or pneumonia. The cardiomediastinal silhouette is within normal limits. Ther e are no pleural effusions. There is no pneumothorax suspected. IMPRESSION: 1: NO ACUTE CARDIOPULMONARY DISEASE. Reviewed, dictated and finalized at location B. AR CARE AIDE
== END 2022-08-30 10:32 | disposition home or self-care (01) ==
PROVIDERS: PCP Family Medicine; Visit Provider Nurse Practitioner Gerontology
DX: R93.89 Abnormal findings on diagnostic imaging of other specified body structures (principal)
CPT/HCPCS: 71046

== ENCOUNTER 2023-01-23 13:55 | Outpatient (CLI) | payer MEDICARE, OTHER, SELFPAY ==
[2023-01-23 14:20] LABS: Basophils Percent Auto 0.3 % (0.2-1.2); Eosinophils Percent Auto 0.4 % (0-4.4); Hematocrit 42.5 % (37.0-47.0); Hemoglobin 13.8 g/dL (12.0-15.0); Immature Granulocyte Absolute 0.06 K/mm3 (0.00-0.031); Immature Granulocyte Percent A 0.8 % (0-0.5); Lymphocytes Absolute Auto 2.02 K/mm3 (0.9-3.2); Lymphocytes Percent Auto 28.5 % (18.3-44.2); Mean Corpuscular HGB Conc 32.5 g/dl (32-36); Mean Corpuscular Hemoglobin 30.8 pg (26-34); Mean Corpuscular Volume 94.9 fl (80-100); Mean Platelet Volume 11.1 fl (7.4-10.4); Monocytes Absolute Auto 1.1 K/mm3 (0.1-0.6); Monocytes Percent Auto 15.2 % (2.6-8.5); Neutrophils Absolute Auto 3.9 K/mm3 (1.3-6.7); Neutrophils Percent Auto 54.8 % (45.5-73.1); Platelet Count Result 219 k/mm3 (150-375); Red Blood Count 4.48 M/mm3 (4.2-5.4); Red Cell Distribution Width 13.8 % (11.5-14.5); White Blood Count 7.1 K/mm3 (4.5-10.0)
[2023-01-23 14:29] LABS: Alanine Aminotransferase 21 U/L (6-35); Albumin Level 4.5 g/dL (3.5-5.1); Alkaline Phosphatase 60 U/L (38-126); Anion Gap 8 mmol/L (8-16); Aspartate Amino Transferase 30 U/L (14-36); Bilirubin,Total 0.5 mg/dL (0.2-1.3); Blood Urea Nitrogen 15 mg/dL (7-17); Calcium 9.4 mg/dL (8.4-10.2); Carbon Dioxide 31 mmol/L (22-30); Chloride 99 mmol/L (98-107); Estimated Glomerular Filt Rate 59; Glucose 99 mg/dL (65-110); Potassium 4.7 mmol/L (3.4-5.0); Sodium 138 mmol/L (137-145)
== END 2023-01-23 13:56 | disposition home or self-care (01) ==
LOC: ANHLAB 13:57
PROVIDERS: PCP Family Medicine; Visit Provider Physician Assistant
DX: M85.80 Other specified disorders of bone density and structure, unspecified site (principal); E03.8 Other specified hypothyroidism; I10 Essential (primary) hypertension; E78.2 Mixed hyperlipidemia
CPT/HCPCS: 36415; 80053; 84443; 85025

== ENCOUNTER 2023-02-11 15:58 | Outpatient (NON) | payer MEDICARE, OTHER, SELFPAY ==
[2023-02-11 16:34] LABS: Appearance Urine Cloudy (Clear); Bacteria Urine 4+ /hpf; Bilirubin Urine Negative (Negative); Blood Urine 1+ (Negative); Color Urine Yellow (Yellow); Glucose Urine UA Negative (Negative); Ketones Urine Negative (Negative); Leukocyte Esterase Ur 2+ LEU/UL (Negative); Nitrate Urine Positive (Negative); Non Pathogenic Casts 0-2; Protein Urine Negative (Negative); Specific Grav Ur 1.018 (1.001-1.035); Squamous Epithelial Cell Urine None seen /hpf (Few); WBC Urine 21-50 /hpf
[2023-02-11 16:39] LABS: Add Urine Microscopic? YES
== END 2023-02-11 15:59 | disposition home or self-care (01) ==
LOC: ANHLAB 15:59
PROVIDERS: PCP Family Medicine; Visit Provider Physician Assistant
DX: R31.9 Hematuria, unspecified (principal)
CPT/HCPCS: 81001; 87077; 87086; 87186

== ENCOUNTER 2023-06-10 11:28 | Inpatient (IN) | payer MEDICARE, OTHER, SELFPAY ==
[2023-06-10] VITALS (15 sets, daily range): BP systolic 101–151; BP diastolic 60–76; PULSE 69–86; RESP 16–22; TEMP 36.6–36.9; O2SAT 91–99
--- NOTE | ~2023-06-10 | XR_ITS ---
EXAMINATION: XR chest 2V DATE: 06/10/2023 12:48 INDICATION: Weakness TECHNIQUE: AP and lateral views of the chest are obtained. COMPARISON: None available FINDINGS: There are minimal airspace opacities of the lingula. No pleural effusion or pneumothorax. T he cardiomediastinal silhouette is normal. There is moderate thoracic spondylosis. Healed left-sided rib fractures are noted. IMPRESSION: 1. Lingular airspace opacity, consistent with atelectasis versus pneumonia. Reviewed, dictated and finalized at location L. EDORING SUPERVISOR
--- NOTE | ~2023-06-10 | CT_ITS ---
EXAMINATION: CT brain wo con DATE: 06/10/2023 17:00 INDICATION: AMS . TECHNIQUE: Computed tomography (CT) of the head was performed without intravenous contrast. The mA wa s adjusted according to patient size. Iterative reconstruction technique was employed. The dose-lengt h product was 605.33 mGy-cm. COMPARISON: 05/12/2022. FINDINGS: No acute intracranial hemorrhage or extra-axial fluid collection. No hydrocephalus, mass, or herniation. No acute ischemic infarct. Unremarkable dural venous sinus attenuation. No acute osseous abnormality. The aerated spaces are clear. Moderate atrophy and chronic white matter change. Atherosclerotic intracranial calcification. Bilater al lens replacements. IMPRESSION: No acute intracranial process. Reviewed, dictated and finalized at location K. CHARMER
--- NOTE | 2023-06-10 12:04 | ECG_ITS ---
Measurements Intervals [place] Rate: 85 P: 41 CT: 138 QRS: -57 QRSD: 81 T: 73 QT: 389 QTc: 464 Interpretive Statements SINUS RHYTHM LEFT VENTRICULAR HYPERTROPHY AND ST-T CHANGE [VOLTAGE CRITERIA PLUS ST/T ABNORMALITY] INFERIOR MYOCARDIAL INFARCTION , OF INDETERMINATE AGE WITH POSTERIOR EXTENSION [40+ ms Q WAVE AND/OR ST/T ABNORMALITY IN II/aV ABNORMAL ECG COMPARED TO ECG 05/11/2022 22:54:14 LEFT VENTRICULAR HYPERTROPHY NOW PRESENT ST (T WAVE) DEVIATION NOW PRESENT Electronically Signed On 06-11-2023 10:28:07 MANUFACTURING LAB TECHNICIAN by Joni Chawla M.D.
[2023-06-10 12:34] LABS: Basophils Percent Auto 0.2 % (0.2-1.2); Hematocrit 40.7 % (37.0-47.0); Hemoglobin 13.3 g/dL (12.0-15.0); Immature Granulocyte Absolute 0.02 K/mm3 (0.00-0.031); Immature Granulocyte Percent A 0.4 % (0-0.5); Immature Platelet Fraction Pct 8.6 % (0.9-11.2); Lymphocytes Absolute Auto 1.24 K/mm3 (0.9-3.2); Lymphocytes Percent Auto 27.2 % (18.3-44.2); Mean Corpuscular HGB Conc 32.7 g/dl (32-36); Mean Corpuscular Hemoglobin 29.9 pg (26-34); Mean Corpuscular Volume 91.5 fl (80-100); Mean Platelet Volume 11.6 fl (7.4-10.4); Monocytes Percent Auto 21.1 % (2.6-8.5); Neutrophils Absolute Auto 2.3 K/mm3 (1.3-6.7); Neutrophils Percent Auto 51.1 % (45.5-73.1); Platelet Count Result 123 k/mm3 (150-375); Red Blood Count 4.45 M/mm3 (4.2-5.4); Red Cell Distribution Width 13.4 % (11.5-14.5); White Blood Count 4.6 K/mm3 (4.5-10.0)
[2023-06-10 12:41] LABS: Alanine Aminotransferase 27 U/L (6-35); Albumin Level 3.8 g/dL (3.5-5.1); Alkaline Phosphatase 57 U/L (38-126); Anion Gap 7 mmol/L (8-16); Aspartate Amino Transferase 55 U/L (14-36); Bilirubin,Total 0.5 mg/dL (0.2-1.3); Blood Urea Nitrogen 14 mg/dL (7-17); Calcium 8.4 mg/dL (8.4-10.2); Carbon Dioxide 25 mmol/L (22-30); Chloride 102 mmol/L (98-107); Estimated CRCL calculation 43 ml/min; Estimated Glomerular Filt Rate > 60; Glucose 103 mg/dL (65-110); Potassium 3.7 mmol/L (3.4-5.0); Sodium 134 mmol/L (137-145)
--- NOTE | 2023-06-10 16:20 | ED.WEAKNESS ---
HPI - Weakness General Chief complaint: Weakness Stated complaint: unable to walk Time Seen by Provider: 06/10/23 14:47 History of Present Illness HPI Narrative: Patient is an 87-year-old female presenting with altered mental status. Patient's is at bedside and assists with the history. Patient moved into memory care about 10 days ago. Patient's states that at baseline she is able to walk, feed herself, take care for basic ADLs. States that he was out of town for the last week and when he got back she was unable to take care of any of her ADLs. States that she is diffusely weak and is not willing to try to walk. States that she will not feed herself but she is willing to eat if someone else feeds her. He is concerned that she has a UTI. States that she has had a productive cough. She denies any pain. Related Data Home Medications Medication Instructions Recorded Confirmed memantine 10 mg tablet 10 mg PO DAILY 06/11/23 06/11/23 methotrexate sodium 2.5 mg tablet 2.5 mg PO 3XW 06/11/23 06/11/23 Allergies Allergy/AdvReac Type Severity Reaction Status Date / Time sulfamethizole Allergy Unknown Unknown Verified 06/10/23 15:53 sulfamethoxazole Allergy Unknown UNKNOWN Verified 06/10/23 15:53 trimethoprim Allergy Unknown Unknown Verified 06/10/23 15:53 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 and presenium GERD (gastroesophageal reflux disease) Hematoma, subdural, with loss of consciousness, traumatic Hip fracture, left Impaired gait Lupus (systemic lupus erythematosus) Major depressive disorder, recurrent, moderate Memory loss Mixed hyperlipidemia Osteopenia Other specified hypothyroidism Pulmonary nodule, right Rheumatoid arthritis involving multiple sites with positive rheumatoid factor Seasonal allergies Spinal stenosis, 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 neurogenic claudication Status post fracture of left hip Surgical History Surgical History History of arthroplasty of left hip History of total right knee replacement Family History Family History Father Family history of lung cancer Mother Family history of emphysema Other Family history of arthritis Family history of malignant neoplasm Hypertension Social History Social History Social History: Smoking status: Never smoker Second hand tobacco smoke exposure: No Alcohol intake: never Alcohol use details: Occasionally Substance use: never Substance use type: does not use Do You Feel Safe in your Home?: Yes Lack of Transportation: No Lack of Food: Never True Current Housing: I Have Housing Concerned About Future Housing: No Difficulty Paying Gas/Electric Bills: No Difficulty Paying for Meds: No Currently Unemployed: No Education: High School Diploma/GED Difficulty w/ Childcare or Family Care: No Living arrangements: with family Occupation/Education: retired Gender identity (if verbalized by the patient): Female Sexual Orientation (if Verbalized by the Patient): Straight or Heterosexual Spiritual care concerns: No Exam Narrative: GENERAL: Elderly female lying in bed in no acute distress HEAD: Normocephalic, atraumatic. EYES: PERRLA and EOMI. ENT: grossly unremarkable NECK: Supple. CHEST: Clear to auscultation. No respiratory distress. HEART: Regular rate and rhythm ABDOMEN: Soft, nontender, nondistended EXTREMITIES: Normal range of motion. No edema. SKIN: Warm, dry, no rash. NEURO: Alert and oriented x3. 5/5 strength in all e
[2023-06-10] MEDS: SODIUM CHLORIDE 0.9% IV 1,000 ML 999 ML IV CONT (16:35)
--- NOTE | 2023-06-10 16:45 | ECG_ITS ---
Measurements Intervals [place] Rate: 76 P: 55 [place]: 158 QRS: -36 QRSD: 85 T: 76 QT: 423 QTc: 476 Interpretive Statements SINUS RHYTHM MARKED LEFT AXIS DEVIATION [QRS AXIS < -30] POSSIBLE RIGHT VENTRICULAR CONDUCTION DELAY [RSR (QR) IN V1/V2] MINIMAL ST DEPRESSION [0.025+ mV ST DEPRESSION] ABNORMAL ECG COMPARED TO ECG 06/10/2023 12:10:39 LEFT-AXIS DEVIATION NOW PRESENT Electronically Signed On 06-11-2023 10:33:53 PLASTIC SEWER by Joni Chwala M.D.
[2023-06-10 16:48] LABS: Creatine Kinase 545 U/L (30-135); Lipase 160 U/L (23-300)
[2023-06-10 17:01] LABS: Troponin I < 0.012 ng/mL (0.000-0.034)
[2023-06-10 17:38] LABS: Appearance Urine Cloudy (Clear); Bacteria Urine 4+ /hpf; Bilirubin Urine Negative (Negative); Blood Urine 2+ (Negative); Color Urine Yellow (Yellow); Glucose Urine UA Negative (Negative); Ketones Urine Trace mg/dL (Negative); Leukocyte Esterase Ur 1+ LEU/UL (Negative); Nitrate Urine Positive (Negative); Protein Urine 1+ mg/dL (Negative); Specific Grav Ur 1.024 (1.001-1.035); Squamous Epithelial Cell Urine Occasional /hpf (Few); Urobilinogen Urine 0.2 mg/dL (<2.0); WBC Urine 21-50 /hpf; pH Urine 5.5 (5.0-9.0)
[2023-06-10 17:43] LABS: Influenza A QL RT-PCR Negative (Negative); Influenza B QL RT-PCR Negative (Negative); RSV RNA, RT-PCR Negative (Negative); SARS-CoV-2 RNA PCR Positive (Negative)
[2023-06-10 17:51] LABS: Add Urine Microscopic? YES
[2023-06-10] MEDS: cefTRIAXone 2 GM/NS 100 ML 2 GM/100 ML BAG IVPB (18:32)
--- NOTE | 2023-06-10 19:07 | PC.NURSE ---
This RN spoke w/ Kelly OLEA at [place] at 1740 w/update.
--- NOTE | 2023-06-10 19:17 | PC.NURSE ---
EKG was not due until 3hr trop was drawn. 3 hr trop was delayed d/t delay in baseline trop draw.
--- NOTE | 2023-06-10 19:21 | PM.IMHP ---
H&P: HPI History of Present Illness Date/Time: 06/10/23 19:21 Chief Complaint: generalized weakness and confusion of 3 days Narrative: ?Patient is an 87-year-old female presenting with altered mental status.? Patient's is at bedside and assists with the history.? Patient moved into memory care about 10 days ago.? Patient's states that at baseline she is able to walk, feed herself, take care for basic ADLs.? States that he was out of town for the last week and when he got back she was unable to take care of any of her ADLs.? States that she is diffusely weak and is not willing to try to walk.? States that she will not feed herself but she is willing to eat if someone else feeds her.? He is concerned that she has a UTI.? States that she has had a productive cough.? She denies any pain. She was evaluated in the ED and found to have UTI and also tested positive to covid-19. She has been given rocephin 2 gms IV and also IVF. She has improved per her but still weak. 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 and presenium GERD (gastroesophageal reflux disease) Hematoma, subdural, with loss of consciousness, traumatic Hip fracture, left Impaired gait Lupus (systemic lupus erythematosus) Major depressive disorder, recurrent, moderate Memory loss Mixed hyperlipidemia Osteopenia Other specified hypothyroidism Pulmonary nodule, right Rheumatoid arthritis involving multiple sites with positive rheumatoid factor Seasonal allergies Spinal stenosis, 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 neurogenic claudication Status post fracture of left hip Surgical History Surgical History History of arthroplasty of left hip History of total right knee replacement Family History Family History Father Family history of lung cancer Mother Family history of emphysema Other Family history of arthritis Family history of malignant neoplasm Hypertension Social History Social History Social History: Smoking status: Never smoker Second hand tobacco smoke exposure: No Alcohol intake: current Alcohol use details: Occasionally Substance use: never Substance use type: does not use Lack of Transportation: No Lack of Food: Never True Current Housing: I Have Housing Concerned About Future Housing: No Difficulty Paying Gas/Electric Bills: No Difficulty Paying for Meds: No Currently Unemployed: YES Education: Decline to Answer Difficulty w/ Childcare or Family Care: No Living arrangements: with family Occupation/Education: retired Gender identity (if verbalized by the patient): Female Sexual Orientation (if Verbalized by the Patient): Straight or Heterosexual Meds Home Medications and Allergies Home Medications Medication Instructions Recorded Confirmed Type memantine 10 mg tablet See Rx Instructions .Route 12/23/22 05/26/23 Rx .COMPLEX #180 tabs donepezil 10 mg tablet 10 mg PO QHS #90 tabs 03/11/23 05/26/23 Rx duloxetine 30 mg capsule,delayed 30 mg PO DAILY #90 caps 03/11/23 05/26/23 Rx release folic acid 1 mg tablet 1 mg PO DAILY #90 tabs 03/11/23 05/26/23 Rx levothyroxine 88 mcg tablet See Rx Instructions .Route 03/11/23 05/26/23 Rx .COMPLEX #90 tabs lisinopril 5 mg tablet 5 mg PO DAILY #90 tabs 03/11/23 05/26/23 Rx methotrexate sodium 2.5 mg tablet 2.5 mg PO .COMPLEX #36 tabs 03/11/23 05/26/23 Rx pantoprazole 40 mg tablet,delayed 40 mg PO QAM #90 tabs 03/11/23 05/26/23 Rx release (Protonix) raloxifene 60 mg tablet (Octavia
[2023-06-10 20:35] LABS: Basophils Percent Auto 0.2 % (0.2-1.2); Hematocrit 35.3 % (37.0-47.0); Hemoglobin 11.4 g/dL (12.0-15.0); Immature Granulocyte Absolute 0.03 K/mm3 (0.00-0.031); Immature Granulocyte Percent A 0.7 % (0-0.5); Immature Platelet Fraction Pct 7.6 % (0.9-11.2); Lymphocytes Absolute Auto 1.71 K/mm3 (0.9-3.2); Lymphocytes Percent Auto 38.9 % (18.3-44.2); Mean Corpuscular HGB Conc 32.3 g/dl (32-36); Mean Corpuscular Hemoglobin 29.8 pg (26-34); Mean Corpuscular Volume 92.4 fl (80-100); Mean Platelet Volume 11.9 fl (7.4-10.4); Monocytes Absolute Auto 0.9 K/mm3 (0.1-0.6); Neutrophils Absolute Auto 1.8 K/mm3 (1.3-6.7); Neutrophils Percent Auto 40.2 % (45.5-73.1); Platelet Count Result 107 k/mm3 (150-375); Red Blood Count 3.82 M/mm3 (4.2-5.4); Red Cell Distribution Width 13.4 % (11.5-14.5); White Blood Count 4.4 K/mm3 (4.5-10.0)
[2023-06-10 20:45] LABS: Anion Gap 5 mmol/L (8-16); Blood Urea Nitrogen 13 mg/dL (7-17); Calcium 7.8 mg/dL (8.4-10.2); Carbon Dioxide 27 mmol/L (22-30); Chloride 104 mmol/L (98-107); Estimated CRCL calculation 48 ml/min; Estimated Glomerular Filt Rate > 60; Glucose 93 mg/dL (65-110); Potassium 3.7 mmol/L (3.4-5.0); Sodium 136 mmol/L (137-145)
[2023-06-10 21:00] LABS: Troponin I 0.014 ng/mL (0.000-0.034)
[2023-06-10] MEDS: REMDESIVIR 200 MG/NS 250 ML 200 MG/250 ML BAG 250 MG IVPB (21:20)
--- NOTE | 2023-06-10 21:34 | PC.NURSE ---
Right before patient was going to be taken up. Patient stated she had to urinate. Upon staff trying to retrieve items to help patient urinate, patient was unable to hold urine and also had a bowel movement. Staff then proceeded to assist patient clean up and get new sheets, a new gown, and new linens.
--- NOTE | 2023-06-10 21:57 | ADMGEN ---
This patient, Hortencia Loaiza, was admitted to Medical Room 344-01. Patient/family oriented to hospital policies and general routines including ID bracelet, bed and alarms, visiting hours, pain management, procedures, bathroom and other care routines, personal items, smoking policy, room service/diet, and visiting hours. Information on how to activate the Rapid Response Team has been discussed. Patient/Family are encouraged to report perceived risks to care and to ask questions if they do not understand what they are told or what they should do.
[2023-06-11 05:01] VITALS: BP 153/73; PULSE 72; RESP 16; TEMP 36.4; O2SAT 97
[2023-06-11] MEDS: LEVOTHYROXINE SODIUM 88 MCG TABLET PO (05:50)
[2023-06-11] MEDS: SODIUM CHLORIDE 0.45% 1,000 ML 100 ML IV CONT ×2 (05:50→18:32)
[2023-06-11] MEDS: PANTOPRAZOLE 40 MG TABLET PO (09:28)
[2023-06-11] MEDS: MEMANTINE 10 MG TABLET PO (09:28)
[2023-06-11] MEDS: DULoxetine HCL 30 MG CAPSULE.DR PO (09:28)
[2023-06-11] MEDS: FOLIC ACID 1 MG TABLET PO (09:28)
[2023-06-11] MEDS: ENOXAPARIN 40 MG/0.4 ML SYRINGE SUB-Q (09:28)
[2023-06-11] MEDS: lisinopriL 5 MG TABLET PO (09:28)
--- NOTE | 2023-06-11 10:01 | PM.IMPN ---
Progress Note: A&P Assessment and Plan (1) UTI (urinary tract infection), bacterial: Code(s): N39.0 - Urinary tract infection, site not specified; A49.9 - Bacterial infection, unspecified Status: Acute Assessment and Plan: 06/11/23: UA showing 1+ protein, trace ketones, 2+ blood, positive nitrates, 1+ leukocytes, 3-5 urine RBCs, 21-50 urine wbc's, 4+ bacteria. Urine and blood cultures are pending Patient started on Rocephin (2) Acute COVID-19: Code(s): U07.1 - COVID-19 Status: Acute Assessment and Plan: 06/11/23: Currently on room air, denies shortness of breath or chest pain. She appears to be in no acute distress. Continue remdesivir. (3) Pulmonary infiltrate on chest x-ray: Code(s): R91.8 - Other nonspecific abnormal finding of lung field Status: Acute Assessment and Plan: 06/11/23: Chest x-ray showing lingular airspace opacity, consistent with atelectasis versus pneumonia Patient is COVID positive, not requiring any oxygen. Continue with Rocephin and remdesivir for now Time Spent With Patient Time with patient: Greater than 35 minutes Subjective Date/time seen: 06/11/23 10:01 Interval history: This is an 87 year old female who presented to the hospital on 06/10/23 with altered mental status. Patient was found to have UTI and COVID-19. Work up in hospital includes a chest x-ray that shown lingular airspace opacity, consistent with atelectasis versus pneumonia. She also had a head CT which did not show any acute intracranial process. UA revealed 1+ protein, trace ketones, 2+ blood, positive nitrates, 1+ leukocytes, 3-5 urine RBC's, 21-50 urine WBC's, 4+ bacteria. Respiratory panel + for Covid, negative for RSV, influenza. CBC was essentially negative. Na+ 134 with normal kidney function, CK elevated at 545, Troponin was essentially negative x2, AST slightly elevated at 55. Blood and urine cultures were obtained. Patient was given 1L NS, started on maintenance IVF, started on Rocephin, and Remdesivir. On examination patient is alert and oriented x3, sitting up in chair. Patient denies any fever, chills, nausea, vomiting, diarrhea, abdominal pain, shortness a breath, chest pain. VSS, she is afebrile, and currently on room air. Labs today reveal WBC 4.4, Hgb 11.4, Hct 35.3, Plt 107, Na+ 136, K+ 3.7, BUN 13, Creatinine 0.7. Urine and blood cultures are still pending. She will continue on remdesivir and Rocephin IV. Review of Systems Review of Systems: All systems reviewed & are unremarkable except as noted in HPI and below Constitutional: Constitutional: Reports as per HPI and Reports no additional constitutional complaints Eyes: Eyes: Reports as per HPI and Reports no additional eye complaints ENT: Reports system reviewed and no additional complaints, except as documented and Reports as per HPI Cardiovascular: Cardiovascular: Reports as per HPI and Reports no additional cardiovascular complaints Respiratory: Respiratory: Reports as per HPI and Reports no additional respiratory complaints Gastrointestinal: Gastrointestinal: Reports as per HPI and Reports no additional gastrointestinal complaints Genitourinary: Genitourinary: Reports no additional female genitourinary complaints and Reports as per HPI Musculoskeletal: Musculoskeletal: Reports no additional musculoskeletal complaints and Reports as per HPI Integumentary/Breasts: Skin/Breast: Reports system reviewed and no additional complaints, except as docu and Reports as per HPI Neurologic: Reports system reviewed and no additional complaints, except as documented and Reports as per HPI Psychiatric: Psychiatric: Reports no additional psychiatric complaints and Reports as per HPI Exam Narrative: General: In no acute distress, well nourished Head: atraumatic, no encephalopathy Eyes: EOMI, PERRLA, sclera clear ENT: moist mucous membranes, nasal passages clear Neck: supple, no JVD, no adenopathy, trachea
[2023-06-11] MEDS: RALOXIFENE HCL (*CHEMO) 60 MG TABLET PO (10:49)
[2023-06-11] MEDS: ARIPiprazole 5 MG TABLET PO (10:49)
[2023-06-11 14:00] VITALS: BP 131/73; PULSE 83; RESP 16; TEMP 36.4; O2SAT 95
[2023-06-11] MEDS: METHOTREXATE 2.5 MG TAB (*CHEMO) PO (15:48)
[2023-06-11 20:00] VITALS: PULSE 83; RESP 16; O2SAT 95
[2023-06-11] MEDS: REMDESIVIR 100 MG/NS 250 ML 100 MG/250 ML BAG 250 MG IVPB (21:21)
[2023-06-11] MEDS: DONEPEZIL HCL 10 MG TABLET PO (21:21)
[2023-06-11 22:00] VITALS: BP 139/75; PULSE 73; RESP 21; TEMP 36.3; O2SAT 100
[2023-06-12] MEDS: LEVOTHYROXINE SODIUM 88 MCG TABLET PO (05:35)
[2023-06-12] MEDS: SODIUM CHLORIDE 0.45% 1,000 ML 100 ML IV CONT (05:36)
[2023-06-12 06:00] VITALS: BP 144/83; PULSE 70; RESP 18; TEMP 36.1; O2SAT 97
[2023-06-12 07:45] LABS: Hematocrit 35.4 % (37.0-47.0); Hemoglobin 11.3 g/dL (12.0-15.0); Mean Corpuscular HGB Conc 31.9 g/dl (32-36); Mean Corpuscular Hemoglobin 30.1 pg (26-34); Mean Corpuscular Volume 94.1 fl (80-100); Mean Platelet Volume 12.2 fl (7.4-10.4); Platelet Count Result 106 k/mm3 (150-375); Red Blood Count 3.76 M/mm3 (4.2-5.4); Red Cell Distribution Width 13.4 % (11.5-14.5); White Blood Count 3.5 K/mm3 (4.5-10.0)
[2023-06-12] MEDS: RALOXIFENE HCL (*CHEMO) 60 MG TABLET PO (09:23)
[2023-06-12] MEDS: PANTOPRAZOLE 40 MG TABLET PO (09:23)
[2023-06-12] MEDS: lisinopriL 5 MG TABLET PO (09:23)
[2023-06-12] MEDS: MEMANTINE 10 MG TABLET PO (09:24)
[2023-06-12] MEDS: FOLIC ACID 1 MG TABLET PO (09:24)
[2023-06-12] MEDS: ENOXAPARIN 40 MG/0.4 ML SYRINGE SUB-Q (09:24)
[2023-06-12] MEDS: ARIPiprazole 5 MG TABLET PO (09:24)
[2023-06-12] MEDS: DULoxetine HCL 30 MG CAPSULE.DR PO (09:24)
--- NOTE | 2023-06-12 09:41 | PM.IMPN ---
Progress Note: A&P Assessment and Plan (1) UTI (urinary tract infection), bacterial: Code(s): N39.0 - Urinary tract infection, site not specified; A49.9 - Bacterial infection, unspecified Status: Acute Assessment and Plan: 06/11/23: UA showing 1+ protein, trace ketones, 2+ blood, positive nitrates, 1+ leukocytes, 3-5 urine RBCs, 21-50 urine wbc's, 4+ bacteria. Urine and blood cultures are pending Patient started on Rocephin 06/12/23: Urine culture showing c. coli on preliminary read Blood cultures showing no growth to date on preliminary read Continue Rocephin IV while waiting final read and susceptibilities. continue PT and OT care coordination consulted for outpatient rehab needs (2) Acute COVID-19: Code(s): U07.1 - COVID-19 Status: Acute Assessment and Plan: 06/11/23: Currently on room air, denies shortness of breath or chest pain. She appears to be in no acute distress. Continue remdesivir. 06/12/23: Will go ahead and discontinue remdesivir as she does may requirement continuation. She is currently on room air, she is no acute respiratory distress at this time. (3) Pulmonary infiltrate on chest x-ray: Code(s): R91.8 - Other nonspecific abnormal finding of lung field Status: Acute Assessment and Plan: 06/11/23: Chest x-ray showing lingular airspace opacity, consistent with atelectasis versus pneumonia Patient is COVID positive, not requiring any oxygen. Continue with Rocephin and remdesivir for now 06/12/23: Continue Rocephin, dc remdesivir as she has no clinical indications for its use. Time Spent With Patient Time with patient: 25 - 35 minutes Subjective Date/time seen: 06/12/23 09:41 Interval history: 05/12/23: This is an 87 year old female who presented to the hospital on 06/10/23 with altered mental status. Patient was found to have UTI and COVID-19. Work up in hospital includes a chest x-ray that shown lingular airspace opacity, consistent with atelectasis versus pneumonia. She also had a head CT which did not show any acute intracranial process. UA revealed 1+ protein, trace ketones, 2+ blood, positive nitrates, 1+ leukocytes, 3-5 urine RBC's, 21-50 urine WBC's, 4+ bacteria. Respiratory panel + for Covid, negative for RSV, influenza. CBC was essentially negative. Na+ 134 with normal kidney function, CK elevated at 545, Troponin was essentially negative x2, AST slightly elevated at 55. Blood and urine cultures were obtained. Patient was given 1L NS, started on maintenance IVF, started on Rocephin, and Remdesivir. On examination patient is alert and oriented x3, sitting up in chair. Patient denies any fever, chills, nausea, vomiting, diarrhea, abdominal pain, shortness a breath, chest pain. VSS, she is afebrile, and currently on room air. Labs today reveal WBC 4.4, Hgb 11.4, Hct 35.3, Plt 107, Na+ 136, K+ 3.7, BUN 13, Creatinine 0.7. Urine and blood cultures are still pending. She will continue on remdesivir and Rocephin IV. 05/13/23: On examination patient Is alert oriented x3, sitting in chair. She denies any nausea, vomiting,, abdominal pain, shortness a breath, chest pain.VSS, she is afebrile, currently on room air. Labs today reveal WBC 3.5, Hgb 11.3, Hct 35.4, Plt 106,Urine culture showing e. coli on preliminary read, blood cultures showing no growth on preliminary read. Patient currently on Rocephin and Remdesivir. We will go ahead discontinued the remdesivir patient is no longer needing requirement for this. We will continue to wait on the final read of the urine culture and sensitivities before changing Rocephin over to oral. Patient is still a moderate assist with ADLs and ambulating. She may need a short course rehab before returning back her memory care facility. She will continue to work with therapy here. Review of Systems Review of Systems: All systems reviewed & are unremarkable except as noted in HPI and below Co
[2023-06-12 09:55] LABS: Alanine Aminotransferase 24 U/L (6-35); Albumin Level 2.9 g/dL (3.5-5.1); Alkaline Phosphatase 49 U/L (38-126); Anion Gap 5 mmol/L (8-16); Aspartate Amino Transferase 42 U/L (14-36); Bilirubin,Total 0.3 mg/dL (0.2-1.3); Blood Urea Nitrogen 11 mg/dL (7-17); Calcium 7.8 mg/dL (8.4-10.2); Carbon Dioxide 26 mmol/L (22-30); Chloride 103 mmol/L (98-107); Estimated CRCL calculation 48 ml/min; Estimated Glomerular Filt Rate > 60; Glucose 75 mg/dL (65-110); Potassium 3.4 mmol/L (3.4-5.0); Sodium 134 mmol/L (137-145)
[2023-06-12 10:37] VITALS: BMI 23.5
[2023-06-12 14:00] VITALS: BP 101/61; PULSE 78; RESP 16; TEMP 36.6; O2SAT 97
[2023-06-12 20:00] VITALS: PULSE 78; RESP 16; O2SAT 97
[2023-06-12] MEDS: DONEPEZIL HCL 10 MG TABLET PO (20:35)
[2023-06-12 22:28] VITALS: BP 129/72; PULSE 74; RESP 16; TEMP 36.8; O2SAT 94
[2023-06-13 06:00] VITALS: BP 157/72; PULSE 67; RESP 16; TEMP 36; O2SAT 94
[2023-06-13 06:12] LABS: Hematocrit 35.1 % (37.0-47.0); Hemoglobin 11.5 g/dL (12.0-15.0); Immature Platelet Fraction Pct 7.9 % (0.9-11.2); Mean Corpuscular HGB Conc 32.8 g/dl (32-36); Mean Corpuscular Hemoglobin 29.7 pg (26-34); Mean Corpuscular Volume 90.7 fl (80-100); Mean Platelet Volume 11.6 fl (7.4-10.4); Platelet Count Result 112 k/mm3 (150-375); Red Blood Count 3.87 M/mm3 (4.2-5.4); Red Cell Distribution Width 13.2 % (11.5-14.5); White Blood Count 3.7 K/mm3 (4.5-10.0)
[2023-06-13 06:21] LABS: Alanine Aminotransferase 22 U/L (6-35); Alkaline Phosphatase 49 U/L (38-126); Anion Gap 6 mmol/L (8-16); Aspartate Amino Transferase 37 U/L (14-36); Bilirubin,Total 0.4 mg/dL (0.2-1.3); Blood Urea Nitrogen 10 mg/dL (7-17); Calcium 8.1 mg/dL (8.4-10.2); Carbon Dioxide 25 mmol/L (22-30); Chloride 104 mmol/L (98-107); Estimated CRCL calculation 48 ml/min; Estimated Glomerular Filt Rate > 60; Glucose 86 mg/dL (65-110); Potassium 3.2 mmol/L (3.4-5.0); Sodium 135 mmol/L (137-145)
[2023-06-13] MEDS: LEVOTHYROXINE SODIUM 88 MCG TABLET PO (06:30)
[2023-06-13 08:00] VITALS: PULSE 67; RESP 16; O2SAT 94
[2023-06-13] MEDS: RALOXIFENE HCL (*CHEMO) 60 MG TABLET PO (08:42)
[2023-06-13] MEDS: lisinopriL 5 MG TABLET PO (08:43)
[2023-06-13] MEDS: PANTOPRAZOLE 40 MG TABLET PO (08:43)
[2023-06-13] MEDS: DULoxetine HCL 30 MG CAPSULE.DR PO (08:43)
[2023-06-13] MEDS: ARIPiprazole 5 MG TABLET PO (08:43)
[2023-06-13] MEDS: MEMANTINE 10 MG TABLET PO (08:43)
[2023-06-13] MEDS: ENOXAPARIN 40 MG/0.4 ML SYRINGE SUB-Q (08:43)
[2023-06-13] MEDS: FOLIC ACID 1 MG TABLET PO (08:43)
[2023-06-13] MEDS: METHOTREXATE 2.5 MG TAB (*CHEMO) PO (08:44)
[2023-06-13] MEDS: CEFDINIR 300 MG CAPSULE PO ×2 (10:21→20:29)
[2023-06-13] MEDS: POTASSIUM CHLORIDE 20 MEQ ER TABLET 40 MEQ PO (10:21)
[2023-06-13 14:00] VITALS: BP 129/75; PULSE 81; RESP 14; TEMP 36.4; O2SAT 99
--- NOTE | 2023-06-13 14:00 | P.PNIM_ITS ---
Progress Note: A&P Assessment and Plan (1) UTI (urinary tract infection), bacterial: Code(s): N39.0 - Urinary tract infection, site not specified; A49.9 - Bacterial infection, unspecified Status: Acute Assessment and Plan: 06/11/23: * UA showing 1+ protein, trace ketones, 2+ blood, positive nitrates, 1+ leukocytes, 3-5 urine RBCs, 21-50 urine wbc's, 4+ bacteria. * Urine and blood cultures are pending * Patient started on Rocephin 06/12/23: * Urine culture showing c. coli on preliminary read * Blood cultures showing no growth to date on preliminary read * Continue Rocephin IV while waiting final read and susceptibilities. * continue PT and OT * care coordination consulted for outpatient rehab needs 06/13/23: * Urine culture showing E coli on final read with susceptibilities back * Blood culture showing no growth to date * Rocephin changed to cefdinir today * Continue with PT and OT. She has been a moderate assist this admission. * Case management working on SNF placement prior to going back to her Memory Care at [facility], we are waiting insurance approval. * Plan for discharge in the morning (2) Acute COVID-19: Code(s): U07.1 - COVID-19 Status: Acute Assessment and Plan: 06/11/23: * Currently on room air, denies shortness of breath or chest pain. She appears to be in no acute distress. * Continue remdesivir. 06/12/23: * Will go ahead and discontinue remdesivir as she does may requirement continuation. * She is currently on room air, she is no acute respiratory distress at this time. 06/13/23: * No change to current treatment plan (3) Pulmonary infiltrate on chest x-ray: Code(s): R91.8 - Other nonspecific abnormal finding of lung field Status: Acute Assessment and Plan: 06/11/23: * Chest x-ray showing lingular airspace opacity, consistent with atelectasis versus pneumonia * Patient is COVID positive, not requiring any oxygen. * Continue with Rocephin and remdesivir for now 06/12/23: * Continue Rocephin, dc remdesivir as she has no clinical indications for its use. 12/15/23: * Rocephin changed to cefdinir as we have had sensitivities back on her urine culture. Time Spent With Patient Time with patient: 25 - 35 minutes Subjective Date/time seen: 06/13/23 14:00 Interval history: 05/12/23: This is an 87 year old female who presented to the hospital on 06/10/23 with altered mental status. Patient was found to have UTI and COVID-19. Work up in hospital includes a chest x-ray that shown lingular airspace opacity, consistent with atelectasis versus pneumonia. She also had a head CT which did not show any acute intracranial process. UA revealed 1+ protein, trace ketones, 2+ blood, positive nitrates, 1+ leukocytes, 3-5 urine RBC's, 21-50 urine WBC's, 4+ bacteri a. Respiratory panel + for Covid, negative for RSV, influenza. CBC was essentially negative. Na+ 134 with normal kidney function, CK elevated at 545, Troponin was essentially negative x2, AST slightly elevated at 55. Blood and urine cultures were obtained. Patient was given 1L NS, started on maintenance IVF, started on Rocephin, and Remdesivir. On examination patient is alert and oriented x3, sitting up in chair. Patient denies any fever, chills, nausea, vomiting, diarrhea, abdominal pain, shortness a breath, chest pain. VSS, she is afebrile, and currently on room air. Labs today reveal WBC 4.4, Hgb 11.4, Hct 35.3, Plt 107, Na+ 136, K+ 3.7, BUN 13, Creatinine 0.7. Urine and blood cultures are still pending. She will continue on remdesivir and Rocephin IV.
--- NOTE | 2023-06-13 14:00 | PM.IMPN ---
Progress Note: A&P Assessment and Plan (1) UTI (urinary tract infection), bacterial: Code(s): N39.0 - Urinary tract infection, site not specified; A49.9 - Bacterial infection, unspecified Status: Acute Assessment and Plan: 06/11/23: UA showing 1+ protein, trace ketones, 2+ blood, positive nitrates, 1+ leukocytes, 3-5 urine RBCs, 21-50 urine wbc's, 4+ bacteria. Urine and blood cultures are pending Patient started on Rocephin 06/12/23: Urine culture showing c. coli on preliminary read Blood cultures showing no growth to date on preliminary read Continue Rocephin IV while waiting final read and susceptibilities. continue PT and OT care coordination consulted for outpatient rehab needs 06/13/23: Urine culture showing E coli on final read with susceptibilities back Blood culture showing no growth to date Rocephin changed to cefdinir today Continue with PT and OT. She has been a moderate assist this admission. Case management working on SNF placement prior to going back to her [facility] at [place], we are waiting insurance approval. Plan for discharge in the morning (2) Acute COVID-19: Code(s): U07.1 - COVID-19 Status: Acute Assessment and Plan: 06/11/23: Currently on room air, denies shortness of breath or chest pain. She appears to be in no acute distress. Continue remdesivir. 06/12/23: Will go ahead and discontinue remdesivir as she does may requirement continuation. She is currently on room air, she is no acute respiratory distress at this time. 06/13/23: No change to current treatment plan (3) Pulmonary infiltrate on chest x-ray: Code(s): R91.8 - Other nonspecific abnormal finding of lung field Status: Acute Assessment and Plan: 06/11/23: Chest x-ray showing lingular airspace opacity, consistent with atelectasis versus pneumonia Patient is COVID positive, not requiring any oxygen. Continue with Rocephin and remdesivir for now 06/12/23: Continue Rocephin, dc remdesivir as she has no clinical indications for its use. 06/13/23: Rocephin changed to cefdinir as we have had sensitivities back on her urine culture. Time Spent With Patient Time with patient: 25 - 35 minutes Subjective Date/time seen: 06/13/23 14:00 Interval history: 05/12/23: This is an 87 year old female who presented to the hospital on 06/10/23 with altered mental status. Patient was found to have UTI and COVID-19. Work up in hospital includes a chest x-ray that shown lingular airspace opacity, consistent with atelectasis versus pneumonia. She also had a head CT which did not show any acute intracranial process. UA revealed 1+ protein, trace ketones, 2+ blood, positive nitrates, 1+ leukocytes, 3-5 urine RBC's, 21-50 urine WBC's, 4+ bacteria. Respiratory panel + for Covid, negative for RSV, influenza. CBC was essentially negative. Na+ 134 with normal kidney function, CK elevated at 545, Troponin was essentially negative x2, AST slightly elevated at 55. Blood and urine cultures were obtained. Patient was given 1L NS, started on maintenance IVF, started on Rocephin, and Remdesivir. On examination patient is alert and oriented x3, sitting up in chair. Patient denies any fever, chills, nausea, vomiting, diarrhea, abdominal pain, shortness a breath, chest pain. VSS, she is afebrile, and currently on room air. Labs today reveal WBC 4.4, Hgb 11.4, Hct 35.3, Plt 107, Na+ 136, K+ 3.7, BUN 13, Creatinine 0.7. Urine and blood cultures are still pending. She will continue on remdesivir and Rocephin IV. 05/13/23: On examination patient Is alert oriented x3, sitting in chair. She denies any nausea, vomiting,, abdominal pain, shortness a breath, chest pain.VSS, she is afebrile, currently on room air. Labs today reveal WBC 3.5, Hgb 11.3, Hct 35.4, Plt 106,Urine culture showing e. coli on preliminary read, blood cultures showing no growth on preliminary read. Patient currently on Moe
[2023-06-13] MEDS: DONEPEZIL HCL 10 MG TABLET PO (20:29)
[2023-06-13 22:29] VITALS: BP 132/75; PULSE 86; RESP 18; TEMP 36.3; O2SAT 95
[2023-06-14 05:49] LABS: Hematocrit 34.2 % (37.0-47.0); Hemoglobin 11.1 g/dL (12.0-15.0); Immature Platelet Fraction Pct 7.2 % (0.9-11.2); Mean Corpuscular HGB Conc 32.5 g/dl (32-36); Mean Corpuscular Hemoglobin 29.4 pg (26-34); Mean Corpuscular Volume 90.7 fl (80-100); Mean Platelet Volume 11.4 fl (7.4-10.4); Platelet Count Result 120 k/mm3 (150-375); Red Blood Count 3.77 M/mm3 (4.2-5.4); Red Cell Distribution Width 13.2 % (11.5-14.5); White Blood Count 3.3 K/mm3 (4.5-10.0)
[2023-06-14] MEDS: LEVOTHYROXINE SODIUM 88 MCG TABLET PO (05:57)
[2023-06-14 06:00] VITALS: BP 126/72; PULSE 71; RESP 18; TEMP 36.7; O2SAT 95
[2023-06-14 06:02] LABS: Alanine Aminotransferase 22 U/L (6-35); Albumin Level 2.9 g/dL (3.5-5.1); Alkaline Phosphatase 50 U/L (38-126); Anion Gap 5 mmol/L (8-16); Aspartate Amino Transferase 33 U/L (14-36); Bilirubin,Total 0.5 mg/dL (0.2-1.3); Blood Urea Nitrogen 9 mg/dL (7-17); Calcium 8.1 mg/dL (8.4-10.2); Carbon Dioxide 26 mmol/L (22-30); Chloride 105 mmol/L (98-107); Estimated CRCL calculation 56 ml/min; Estimated Glomerular Filt Rate > 60; Glucose 88 mg/dL (65-110); Potassium 3.4 mmol/L (3.4-5.0); Sodium 136 mmol/L (137-145)
--- NOTE | 2023-06-14 08:24 | PM.DS ---
DS: Admitting Diagnosis Discharge Date 06/14/23 Admitting Diagnosis UTI Acute Covid-19 pulmonary infiltrate DS: Discharge Diagnosis Discharge Diagnosis (1) UTI (urinary tract infection), bacterial: Code(s): N39.0 - Urinary tract infection, site not specified; A49.9 - Bacterial infection, unspecified Status: Acute (2) Acute COVID-19: Code(s): U07.1 - COVID-19 Status: Acute (3) Pulmonary infiltrate on chest x-ray: Code(s): R91.8 - Other nonspecific abnormal finding of lung field Status: Acute DS: Summary Hospital Course Reason for hospitalization: UTI Covid 19 Pulmonary inflitrate Hospital Course: This is an 87 year old female who presented to the hospital on 06/10/23 with altered mental status. Patient was found to have UTI and COVID-19. Work up in hospital includes a chest x-ray that shown lingular airspace opacity, consistent with atelectasis versus pneumonia. She also had a head CT which did not show any acute intracranial process. UA revealed 1+ protein, trace ketones, 2+ blood, positive nitrates, 1+ leukocytes, 3-5 urine RBC's, 21-50 urine WBC's, 4+ bacteria. Respiratory panel + for Covid, negative for RSV, influenza. CBC was essentially negative.? Na+ 134 with normal kidney function, CK elevated at 545, Troponin was essentially negative x2, AST slightly elevated at 55. Blood and urine cultures were obtained. Patient was given 1L NS, started on maintenance IVF, started on Rocephin, and Remdesivir. Remdesivir was discontinued on 05/13/23. Patient was transitioned to Cefdinir on 05/14/23 as the final results of the urine culture shown E. coli. Blood cultures are showing no growth day 3. Patient has been working with PT and OT. She has been a moderate assist while inpatient. Case management getting approval for [facility]. On examination today patientVSS, she is on room air, and remains afebrile. Labs today reveal WBC 3.3, Hgb 11.1, Hct 34.2, Plt 120, Na+ 136, K+ 3.4, BUN 9, Creatinine 0.60, BG 75-88, Ca+ 8.1, Albumin 2.1. Patient is stable for discharge. She will need to finish her prescription of Cefdinir and follow up with PCP in 1 week. Final diagnosis: Urinary tract infection, pneumonia, Covid-19 Status at Discharge Cognitive/behavioral status at discharge: Alert and oriented x3 Functional status at discharge: uses cane/walker Overall status at discharge: patient is progressing back to baseline Time Spent with Patient Time attestation: Total time spent providing and/or coordinating discharge services: Time spent: Greater than 30 minutes Exam Narrative: General: In no acute distress, well nourished Head: atraumatic, no encephalopathy Eyes: EOMI, PERRLA, sclera clear ENT: moist mucous membranes, nasal passages clear Neck: supple, no JVD, no adenopathy, trachea midline Cardiac: Normal S1 and S2. Murmur noted, no gallops or friction rubs, peripheral pulses intact. Respiratory: Lungs clear to auscultation, no adventitious lung sounds , currently on room air, no acute respiratory distress noted. Gastrointestinal: soft, non-distended, non-tender, normoactive bowel sounds. : voiding without difficulty. Extremities: moves all extremities well, no edema, good ROM Skin: clean, dry, intact. No wounds or lesions. Neuro: Alert and oriented x3, cranial nerves intact, no neuro deficits. Psych: normal mood, normal affect, interactive DS: Data Data Completed and Pending Completed studies during hospitalization: chest x-ray head CT Pending studies at discharge: blood cultures showing no growth day 3 awaiting final results Labs on day of discharge: Labs from last 24 hours 06/14/23 05:42 WBC 3.3 L RBC 3.77 L Hgb 11.1 L Hct 34.2 L MCV 90.7 MCH 29.4 MCHC 32.5 RDW 13.2 Plt Count 120 L MPV 11.4 H % Immature Plt Fraction 7.2 Sodium 136 L Potassium 3.4 Chloride 105 Carbon Dioxide 26 Anion Gap 5 L BUN 9 Creatinine 0.60 L Estim Creat Clear Calc 56 Estimated GFR >
[2023-06-14] MEDS: ENOXAPARIN 40 MG/0.4 ML SYRINGE SUB-Q (09:00)
[2023-06-14] MEDS: CEFDINIR 300 MG CAPSULE PO (09:00)
[2023-06-14] MEDS: ARIPiprazole 5 MG TABLET PO (09:00)
[2023-06-14] MEDS: PANTOPRAZOLE 40 MG TABLET PO (09:00)
[2023-06-14] MEDS: DULoxetine HCL 30 MG CAPSULE.DR PO (09:00)
[2023-06-14] MEDS: MEMANTINE 10 MG TABLET PO (09:00)
[2023-06-14] MEDS: RALOXIFENE HCL (*CHEMO) 60 MG TABLET PO (09:00)
[2023-06-14] MEDS: FOLIC ACID 1 MG TABLET PO (09:01)
[2023-06-14] MEDS: lisinopriL 5 MG TABLET PO (09:01)
[2023-06-14 14:00] VITALS: BP 129/78; PULSE 77; RESP 16; TEMP 36.4; O2SAT 95
== END 2023-06-14 16:34 | DRG 178 ==
LOC: ANHED 14:53 → ANH3MEDSUR 18:58 → ANH3MED 21:02
PROVIDERS: Emergency Medicine; Student in an Organized Health Care Education/Training Program; Admitting Provider Family Medicine; Emergency Provider Emergency Medicine; PCP Family Medicine; Visit Provider Nurse Practitioner Acute Care
DX: U07.1 COVID-19 (principal); N39.0 Urinary tract infection, site not specified; B96.20 Unspecified Escherichia coli [E. coli] as the cause of diseases classified elsewhere; I10 Essential (primary) hypertension; I35.0 Nonrheumatic aortic (valve) stenosis; E78.2 Mixed hyperlipidemia; E03.9 Hypothyroidism, unspecified; F03.90 Unspecified dementia, unspecified severity, without behavioral disturbance, psychotic disturbance, mood disturbance, and anxiety; F32.A Depression, unspecified; K21.9 Gastro-esophageal reflux disease without esophagitis; M85.80 Other specified disorders of bone density and structure, unspecified site; M06.9 Rheumatoid arthritis, unspecified; M48.061 Spinal stenosis, 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 neurogenic claudication; Z96.642 Presence of left artificial hip joint; Z96.651 Presence of right artificial knee joint
CPT/HCPCS: 36415; 70450; 71046; 80048; 80053; 81001; 82550; 83690; 84484; 85025; 85027; 85055; 87040; 87077; 87086; 87186; 87637; 93005; 96361; 96365; 96375; 97110; 97162; 97166; 97530; 97535; 99285; A9270; G0378; J0248; J0696; J1650; J7030

== ENCOUNTER 2023-08-07 20:22 | Emergency (ER) | payer MEDICARE, OTHER, SELFPAY ==
--- NOTE | ~2023-08-07 | XR_ITS ---
AP view of the pelvis and AP and lateral views of the left hip Clinical history: Pain Findings: No acute fracture or dislocation is seen. Osseous alignment is anatomic. 3 orthopedic screw s traverse the left femoral neck. There is mild to moderate degenerative change of the left hip joint . Mild right hip joint degenerative change. Soft tissues are unremarkable. Impression: No definite acute abnormality. 2 orthopedic screws again traverse the left femoral neck. There is mild remodeling of the articular s urface of the left femoral head with moderate degenerative change of the left hip joint. Mild degenerative change right hip joint. Reviewed, dictated and finalized at location M. AS[facility] Impression: No definite acute abnormality. 2 orthopedic screws again traverse the left femoral neck. There is mild remodel ing of the articular surface of the left femoral head with moderate degenerativ e change of the left hip joint. Mild degenerative change right hip joint.
[2023-08-07 20:27] VITALS: BP 105/63; PULSE 81; RESP 15; TEMP 35.9; O2SAT 94
[2023-08-07 23:49] VITALS: BP 120/80; PULSE 81; RESP 14; O2SAT 94
--- NOTE | 2023-08-08 01:50 | ED.GENADULT ---
HPI - General Adult General Chief complaint: Fall Stated complaint: fall Time Seen by Provider: 08/08/23 00:31 History of Present Illness HPI narrative: Patient is an 87-year-old female who presents emergency department with chief complaint of fall. The patient has resin along a local nursing facility fell to the floor the patient currently has no complaints but the family reports that she had initially complained of some pain in the left hip the patient has had a prior surgery on the left hip and normally uses a wheelchair to ambulate at the nursing facility. The patient denies head injury is not on blood thinners the patient had no complaints of pain and has no reported trauma Related Data Home Medications Medication Instructions Recorded Confirmed memantine 10 mg tablet 10 mg PO DAILY 06/11/23 07/29/23 methotrexate sodium 2.5 mg tablet 2.5 mg PO 3XW 06/11/23 07/29/23 Allergies Allergy/AdvReac Type Severity Reaction Status Date / Time sulfamethizole Allergy Unknown Unknown Verified 08/07/23 20:30 sulfamethoxazole Allergy Unknown UNKNOWN Verified 08/07/23 20:30 trimethoprim Allergy Unknown Unknown Verified 08/07/23 20:30 Review of Systems Review of Systems: A 10 system review of systems was completed on the patient and is negative except for what is stated in the HPI. Nursing and ancillary documentation was reviewed. FORMERLY [facility] Past Medical History Medical History Aortic stenosis with trileaflet valve Balance problem Benign essential HTN Dementia Dementia arising in the senium and presenium GERD (gastroesophageal reflux disease) Hematoma, subdural, with loss of consciousness, traumatic Hip fracture, left Impaired gait Lupus (systemic lupus erythematosus) Major depressive disorder, recurrent, moderate Memory loss Mixed hyperlipidemia Osteopenia Other specified hypothyroidism Pulmonary nodule, right Rheumatoid arthritis involving multiple sites with positive rheumatoid factor Seasonal allergies Spinal stenosis, 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 neurogenic claudication Status post fracture of left hip Surgical History Surgical History History of arthroplasty of left hip History of total right knee replacement Family History Family History Father Family history of lung cancer Mother Family history of emphysema Other Family history of arthritis Family history of malignant neoplasm Hypertension Social History Social History Social History: Smoking status: Never smoker Second hand tobacco smoke exposure: No Alcohol intake: never Alcohol use details: Occasionally Substance use: never Substance use type: does not use Do You Feel Safe in your Home?: Yes Lack of Transportation: No Lack of Food: Never True Current Housing: I Have Housing Concerned About Future Housing: No Difficulty Paying Gas/Electric Bills: No Difficulty Paying for Meds: No Currently Unemployed: No Education: High School Diploma/GED Difficulty w/ Childcare or Family Care: No Living arrangements: with family Occupation/Education: retired Gender identity (if verbalized by the patient): Female Sexual Orientation (if Verbalized by the Patient): Straight or Heterosexual Spiritual care concerns: No Exam Narrative: GENERAL: Well-appearing, well-nourished, and in no acute distress. HEAD: Normocephalic, atraumatic. EYES: PERRLA and EOMI. ENT: Nares clear, no rhinorrhea or epistaxis. Mucous membranes moist. NECK: Supple. CHEST: Clear to auscultation. No respiratory distress. HEART: Regular rate and rhythm. No murmur heard. Normal peripheral pulses. ABDOMEN: Soft, nontender, nondistended, normal active bowel sounds. EXTREMITIES: Normal range of mot
[2023-08-08 02:38] VITALS: BP 124/87; PULSE 80; RESP 14; O2SAT 95
== END 2023-08-08 02:39 ==
PROVIDERS: Emergency Provider Emergency Medicine; PCP Family Medicine
DX: S70.02XA Contusion of left hip, initial encounter (principal); F03.90 Unspecified dementia, unspecified severity, without behavioral disturbance, psychotic disturbance, mood disturbance, and anxiety; I10 Essential (primary) hypertension; I35.0 Nonrheumatic aortic (valve) stenosis; E78.2 Mixed hyperlipidemia; M32.9 Systemic lupus erythematosus, unspecified; M05.79 Rheumatoid arthritis with rheumatoid factor of multiple sites without organ or systems involvement; M85.80 Other specified disorders of bone density and structure, unspecified site; K21.9 Gastro-esophageal reflux disease without esophagitis; Z96.642 Presence of left artificial hip joint; Z96.651 Presence of right artificial knee joint; W19.XXXA Unspecified fall, initial encounter
CPT/HCPCS: 73502; 99283

== ENCOUNTER 2023-09-24 14:07 | Outpatient (CLI) | payer MEDICARE, OTHER, SELFPAY ==
--- NOTE | 2023-09-24 14:26 | ECHO_ITS ---
Patient Info Name: Hortencia Loaiza Age: 87 years : 1935 Gender: Female Ht: 66 in Wt: 142 lbs BSA: 1.74 m2 HR: 80 bpm BP: 130 / 78 mmHg Heart Rhythm: Sinus Rhythm Technical Quality: Fair Exam Date: 09/24/2023 2:40 PM Exam Location: Echo Lab Patient Status: Outpatient Admit Date: 09/24/2023 Staff Ordering Physician: Moises Bojorquez DO Instructor Extension Work: Caitie Crump RDCS Attending Provider: Moises Bojorquez DO Referring Physician: Reno ARCHER; Exam Type: CA echo doppler color flow Study Info Indications - nonrhumatic aortic valve stenosis Complete two-dimensional, color flow and Doppler transthoracic echocardiogram is performed. Summary 1. Complete two-dimensional, color flow and Doppler transthoracic echocardiogram is performed. 2. Left ventricular chamber dimension is normal. 3. Left ventricular systolic function is normal, estimated at 65-70%. 4. There is mild concentric increased left ventricular wall thickness. 5. The left ventricular diastolic function is grade I diastolic dysfunction. 6. There is mild aortic valve sclerosis. 7. There is very mild aortic valve stenosis with a peak velocity of 208 cm/s, mean gradient of 12 mmHg, and aortic valve area of 2.1 cm2. 8. The mitral valve has moderately calcified annulus. 9. No pulmonary hypertension, estimated pulmonary arterial systolic pressure is 30 mmHg. Left Ventricle Left ventricular chamber dimension is normal. Left ventricular systolic function is normal, estimated at 65-70%. There is mild concentric increased left ventricular wall thickness. The left ventricular diastolic function is grade I diastolic dysfunction. Tissue doppler E/e' is not performed. Right Ventricle Right ventricular systolic function is normal and with normal TAPSE 2.3 cm. Right ventricular chamber dimension is normal. Left Atria Left atrial chamber dimension is normal. Right Atria Right atrial chamber dimension is normal. Aortic Valve There is very mild aortic valve stenosis with a peak velocity of 208 cm/s, mean gradient of 12 mmHg, and aortic valve area of 2.1 cm2. The aortic valve is trileaflet. There is mild aortic valve sclerosis. There is no aortic valve regurgitation. Pulmonic Valve There is no pulmonic regurgitation. Mitral Valve The mitral valve has moderately calcified annulus. There is no mitral valve stenosis. There is no mitral valve regurgitation. Tricuspid Valve There is no tricuspid valve regurgitation. No pulmonary hypertension, estimated pulmonary arterial systolic pressure is 30 mmHg. Pericardium/Pleural There is no pericardial effusion. Inferior Vena Cava Normal inferior vena cava with >50% collapse upon inspiration consistent with normal right atrial pressure, 5 mmHg. Aorta The aortic root size at the sinus of Valsalva is normal. Left Ventricular Outflow Tract Name Value Normal LVOT 2D LVOT Diameter 2.1 cm LVOT Doppler LVOT Peak Gradient 6 mmHg LVOT Mean Gradient 4 mmHg LVOT VTI 32 cm LVOT VTI/AV VTI Ratio 0.6 LVOT Stroke Volume 107 ml LVOT CO 7.
== END 2023-09-24 14:08 | disposition home or self-care (01) ==
LOC: ANHCARD 14:08
PROVIDERS: PCP Family Medicine; Visit Provider Internal Medicine Cardiovascular Disease
DX: I35.0 Nonrheumatic aortic (valve) stenosis (principal)
CPT/HCPCS: 93306

== ENCOUNTER 2023-11-21 21:32 | Emergency (ER) | payer MEDICARE, OTHER, SELFPAY ==
--- NOTE | ~2023-11-21 | CT_ITS ---
EXAMINATION: CT brain wo con DATE: 11/21/2023 23:10 INDICATION: Head injury TECHNIQUE: Computed tomography (CT) of the head was performed without intravenous contrast. Sagittal and coronal reconstructions were performed. The mA was adjusted according to patient size. Iterative reconstruction technique was employed. The dose-length product was 605.33 mGy-cm. COMPARISON: head CT dated 06/10/2023 FINDINGS: No fracture. No acute intracranial hemorrhage, acute infarction or abnormal extra axial fluid collect ion. There is moderate scattered white matter hypoattenuation consistent with chronic small vessel is chemic disease. Symmetric prominence of the sulci and ventricles consistent with mild to moderate age -appropriate diffuse cerebral volume loss. No mass/mass effect. Changes of bilateral intraocular lens replacement. The orbits, paranasal sinuses and mastoid air cells are normal. IMPRESSION: 1. No acute intracranial process. 2. Age-related changes including mild to moderate diffuse volume loss and moderate scattered white ma tter hypoattenuation consistent with chronic small vessel ischemic disease. Reviewed, dictated and finalized at location A. IMPRESSION: 1. No acute intracranial process. 2. Age-related changes including mild to moderate diffuse volume loss and moder ate scattered white matter hypoattenuation consistent with chronic small vessel ischemic disease.
--- NOTE | ~2023-11-21 | CT_ITS ---
EXAMINATION: 1. CT facial & cervical spine wo DATE: 11/21/2023 23:10 INDICATION: Head injury TECHNIQUE: 1. Computed tomography (CT) of the maxillofacial region and of the cervical spine were performed with out intravenous contrast. Sagittal and coronal reconstructions of both regions were obtained. Automat ed exposure control and iterative reconstruction technique were employed. The dose-length product was 171.14 mGy-cm. COMPARISON: None. FINDINGS: Maxillofacial CT: No maxillofacial fractures. Specifically the nasal bones, zygomatic arches, mandible and romo of the orbits and paranasal sinuses are all intact. Moderate bilateral temporomandibular osteoarthritis. Ch anges of bilateral intraocular lens replacement. Orbits are otherwise normal. Stranding consistent wi th mild subcutaneous contusion in the right malar region. The paranasal sinuses, mastoid air cells an d middle ear cavities are clear. Cervical spine CT: 102 mm anterolisthesis C7 on T1. Vertebral body heights are normal. No fracture. Moderate disc height loss at C5-C6 and C6-C7. Mild disc height loss at C2-C3 and C4-C5. Small posterior disc osteophyte c omplexes resulting in minimal central canal stenosis at C4-C5 through C6-C7. There is moderate to sev ere uncovertebral osteoarthritis at C5-C6 and C6-C7 and bilateral multilevel moderate to severe media l facet osteoarthritis, right greater than left. This contributes to mild neural foraminal stenosis a t multiple levels on both the left and right. Cervical soft tissues are unremarkable. Mild biapical p leural-parenchymal scarring. IMPRESSION: 1. No acute maxillofacial fractures. 2. Moderate cervical spondylosis without acute osseous abnormality. Reviewed, dictated and finalized at location A.
[2023-11-21 21:36] VITALS: BP 135/71; PULSE 80; RESP 16; TEMP 36.4; O2SAT 95
[2023-11-21 21:43] VITALS: BP 135/71; PULSE 78; RESP 16; O2SAT 95
[2023-11-21 22:44] VITALS: BP 129/68; PULSE 78; RESP 16; O2SAT 96
--- NOTE | 2023-11-21 23:50 | ED.FALL ---
HPI - Fall General Chief Complaint: Fall Stated Complaint: fall Time Seen by Provider: 11/21/23 22:31 History of Present Illness HPI Narrative: Patient presenting [facility], she has a history of dementia is reportedly at baseline per nursing staff and family friend at bedside. She denies any complaints to me and she cannot recall what happened Related Data Home Medications Medication Instructions Recorded Confirmed memantine 10 mg tablet 10 mg PO DAILY 06/11/23 09/09/23 Allergies Allergy/AdvReac Type Severity Reaction Status Date / Time sulfamethizole Allergy Unknown Unknown Verified 09/09/23 10:35 sulfamethoxazole Allergy Unknown UNKNOWN Verified 09/09/23 10:35 trimethoprim Allergy Unknown Unknown Verified 09/09/23 10:35 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 and presenium GERD (gastroesophageal reflux disease) Hematoma, subdural, with loss of consciousness, traumatic Hip fracture, left Impaired gait Lupus (systemic lupus erythematosus) Major depressive disorder, recurrent, moderate Memory loss Mixed hyperlipidemia Osteopenia Other specified hypothyroidism Pulmonary nodule, right Rheumatoid arthritis involving multiple sites with positive rheumatoid factor Seasonal allergies Spinal stenosis, 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 neurogenic claudication Status post fracture of left hip Surgical History Surgical History History of arthroplasty of left hip History of total right knee replacement Family History Family History Father Family history of lung cancer Mother Family history of emphysema Other Family history of arthritis Family history of malignant neoplasm Hypertension Social History Social History Social History: Smoking status: Never smoker Second hand tobacco smoke exposure: No Alcohol intake: never Alcohol use details: Occasionally Substance use: never Substance use type: does not use Do You Feel Safe in your Home?: Yes Lack of Transportation: No Lack of Food: Never True Current Housing: I Have Housing Concerned About Future Housing: No Difficulty Paying Gas/Electric Bills: No Difficulty Paying for Meds: No Currently Unemployed: No Education: High School Diploma/GED Difficulty w/ Childcare or Family Care: No Living arrangements: with family Occupation/Education: retired Gender identity (if verbalized by the patient): Female Sexual Orientation (if Verbalized by the Patient): Straight or Heterosexual Spiritual care concerns: No Exam Narrative: EXAMINATION OF ORGAN SYSTEMS/BODY AREAS: Constitutional: Vital signs per nursing GENERAL:[No acute distress, non-toxic appearing.] HEAD: Abrasion to nose EYES: EOMI, conjunctiva normal ENT: Hearing grossly intact LUNGS: Nonlabored breathing. HEART: [Regular rate and rhythm] ABD: [Soft], [nontender to palpation] EXT: Normal range of motion, no obvious deformity to any extremity, no tenderness to palpation SKIN: Abrasion and nose NEURO: [Alert. No gross focal sensory or strength deficits.] PSYCH: Normal affect Course Vital Signs Vital signs: Vital Signs Temperature 97.6 F 11/21/23 21:36 Pulse Rate 80 11/21/23 21:36 Respiratory Rate 16 11/21/23 21:36 Blood Pressure 135/71 11/21/23 21:36 Pulse Oximetry 95 11/21/23 21:36 Oxygen Delivery Room Air 11/21/23 21:36 Temperature 97.6 F 11/21/23 21:36 Pulse Rate 78 11/21/23 22:44 Respiratory Rate 16 11/21/23 22:44 Blood Pressure
[2023-11-21 23:55] VITALS: BP 143/74; PULSE 81; RESP 17; O2SAT 97
== END 2023-11-22 00:48 ==
PROVIDERS: Emergency Provider Emergency Medicine; PCP Family Medicine
DX: S00.31XA Abrasion of nose, initial encounter (principal); F03.90 Unspecified dementia, unspecified severity, without behavioral disturbance, psychotic disturbance, mood disturbance, and anxiety; I35.0 Nonrheumatic aortic (valve) stenosis; I10 Essential (primary) hypertension; E78.2 Mixed hyperlipidemia; E03.8 Other specified hypothyroidism; K21.9 Gastro-esophageal reflux disease without esophagitis; M32.9 Systemic lupus erythematosus, unspecified; M85.80 Other specified disorders of bone density and structure, unspecified site; M05.79 Rheumatoid arthritis with rheumatoid factor of multiple sites without organ or systems involvement; Z96.642 Presence of left artificial hip joint; Z96.651 Presence of right artificial knee joint; Z79.899 Other long term (current) drug therapy; W19.XXXA Unspecified fall, initial encounter
CPT/HCPCS: 70450; 70486; 72125; 99284

== ENCOUNTER 2023-12-09 14:39 | Outpatient (CLI) | payer MEDICARE, OTHER, SELFPAY ==
[2023-12-09 15:06] LABS: Basophils Percent Auto 0.2 % (0.2-1.2); Eosinophils Percent Auto 0.2 % (0-4.4); Hematocrit 39.1 % (37.0-47.0); Hemoglobin 12.7 g/dL (12.0-15.0); Immature Granulocyte Absolute 0.05 K/mm3 (0.00-0.031); Lymphocytes Percent Auto 31.6 % (18.3-44.2); Mean Corpuscular HGB Conc 32.5 g/dl (32-36); Mean Corpuscular Hemoglobin 30.2 pg (26-34); Mean Corpuscular Volume 93.1 fl (80-100); Mean Platelet Volume 10.9 fl (7.4-10.4); Monocytes Absolute Auto 0.8 K/mm3 (0.1-0.6); Monocytes Percent Auto 15.6 % (2.6-8.5); Neutrophils Absolute Auto 2.6 K/mm3 (1.3-6.7); Neutrophils Percent Auto 51.4 % (45.5-73.1); Platelet Count Result 207 k/mm3 (150-375); Red Cell Distribution Width 13.5 % (11.5-14.5); White Blood Count 5.1 K/mm3 (4.5-10.0)
[2023-12-09 15:21] LABS: Alanine Aminotransferase 11 U/L (6-35); Alkaline Phosphatase 56 U/L (38-126); Anion Gap 6 mmol/L (4-12); Aspartate Amino Transferase 20 U/L (14-36); Bilirubin,Total 0.4 mg/dL (0.2-1.3); Blood Urea Nitrogen 17 mg/dL (7-17); Carbon Dioxide 30 mmol/L (22-30); Chloride 105 mmol/L (98-107); Creatine Kinase 52 U/L (30-135); Estimated Glomerular Filt Rate > 60; Glucose 101 mg/dL (65-110); Potassium 3.8 mmol/L (3.4-5.0); Sodium 141 mmol/L (137-145)
[2023-12-09 15:46] LABS: Erythrocyte Sedimentation Rate 33 mm/hr (0-20)
[2023-12-09 16:12] LABS: Free T4 Free Thyroxine 1.26 ng/mL (0.78-2.19)
== END 2023-12-09 14:40 | disposition home or self-care (01) ==
LOC: ANHLAB 14:42
PROVIDERS: PCP Family Medicine; Visit Provider Family Medicine
DX: R53.81 Other malaise (principal); F02.B11 Dementia in other diseases classified elsewhere, moderate, with agitation; G30.1 Alzheimer's disease with late onset; I10 Essential (primary) hypertension; R26.89 Other abnormalities of gait and mobility; E03.9 Hypothyroidism, unspecified
CPT/HCPCS: 36415; 80053; 81003; 82550; 84439; 84443; 85025; 85652

== ENCOUNTER 2023-12-10 12:09 | Outpatient (NON) | payer MEDICARE, OTHER, SELFPAY ==
[2023-12-10 12:57] LABS: Appearance Urine Clear (Clear); Bilirubin Urine Negative (Negative); Blood Urine Negative (Negative); Color Urine Yellow (Yellow); Glucose Urine UA Negative (Negative); Ketones Urine Trace mg/dL (Negative); Leukocyte Esterase Ur Negative LEU/UL (Negative); Nitrate Urine Negative (Negative); Protein Urine Negative (Negative); Specific Grav Ur 1.021 (1.001-1.035); Urobilinogen Urine 0.2 mg/dL (<2.0); pH Urine 5.5 (5.0-9.0)
[2023-12-10 13:13] LABS: Add Urine Microscopic? NO
== END 2023-12-10 12:10 | disposition home or self-care (01) ==
LOC: ANHLAB 12:11
PROVIDERS: PCP Family Medicine; Visit Provider Family Medicine
DX: G30.1 Alzheimer's disease with late onset (principal); F02.B11 Dementia in other diseases classified elsewhere, moderate, with agitation
CPT/HCPCS: 81003

== ENCOUNTER 2024-05-01 09:39 | Inpatient (IN) | payer MEDICARE, OTHER, SELFPAY ==
[2024-05-01] VITALS (11 sets, daily range): BP systolic 83–122; BP diastolic 52–76; PULSE 68–78; RESP 16–18; TEMP 36.4–36.9; O2SAT 96–100; BMI 26.1
--- NOTE | ~2024-05-01 | XR_ITS ---
EXAMINATION: XR chest 2V DATE: 05/01/2024 10:34 INDICATION: Weakness. Recent fall. TECHNIQUE: frontal and lateral views of the chest were obtained. COMPARISON: Chest radiograph dated 06/10/[address] dated 01/21/2019 FINDINGS: Mild biapical pleural-parenchymal scarring. Prominent left paracardial fat pad at the anterior left l renan base but appreciated on the lateral projection. No other airspace opacities, pulmonary edema, ple ural effusion or pneumothorax. Cardiomediastinal silhouette is normal. A few old healed left rib frac tures. Moderate thoracic spondylosis. IMPRESSION: 1. No acute cardiopulmonary disease. Reviewed, dictated and finalized at location A.
--- NOTE | 2024-05-01 09:50 | ECG_ITS ---
Test Date: 2024-05-01 09:57:56 Measurements Intervals [place] Rate: 68 P: 50 MD: 174 QRS: -39 QRSD: 86 T: 63 QT: 436 QTc: 465 Interpretive Statements SINUS RHYTHM LEFT AXIS DEVIATION DELAYED PRECORDIAL R/S TRANSITION BASELINE ARTIFACT- I, II, III, AVR, AVL, AVF BORDERLINE ECG No previous ECG available for comparison Electronically Signed On 05-01-2024 11:08:44 CDT by Moises Bojorquez D.O.
[2024-05-01 09:58] LABS: Basophils Percent Auto 0.3 % (0.2-1.2); Eosinophils Percent Auto 0.5 % (0-4.4); Hematocrit 38.2 % (37.0-47.0); Hemoglobin 12.8 g/dL (12.0-15.0); Immature Granulocyte Absolute 0.04 K/mm3 (0.00-0.031); Immature Granulocyte Percent A 0.6 % (0-0.5); Lymphocytes Absolute Auto 2.02 K/mm3 (0.9-3.2); Lymphocytes Percent Auto 30.9 % (18.3-44.2); Mean Corpuscular HGB Conc 33.5 g/dl (32-36); Mean Corpuscular Hemoglobin 31.2 pg (26-34); Mean Corpuscular Volume 93.2 fl (80-100); Mean Platelet Volume 11.1 fl (7.4-10.4); Monocytes Absolute Auto 0.8 K/mm3 (0.1-0.6); Monocytes Percent Auto 11.8 % (2.6-8.5); Neutrophils Absolute Auto 3.7 K/mm3 (1.3-6.7); Neutrophils Percent Auto 55.9 % (45.5-73.1); Platelet Count Result 200 k/mm3 (150-375); Red Cell Distribution Width 14.7 % (11.5-14.5); White Blood Count 6.5 K/mm3 (4.5-10.0)
[2024-05-01 10:13] LABS: Alanine Aminotransferase 21 U/L (6-35); Albumin Level 3.9 g/dL (3.5-5.1); Alkaline Phosphatase 54 U/L (38-126); Anion Gap 7 mmol/L (4-12); Aspartate Amino Transferase 39 U/L (14-36); Bilirubin,Total 0.7 mg/dL (0.2-1.3); Blood Urea Nitrogen 14 mg/dL (7-17); Carbon Dioxide 29 mmol/L (22-30); Chloride 104 mmol/L (98-107); Estimated CRCL calculation 46 ml/min; Estimated Glomerular Filt Rate > 60; Glucose 113 mg/dL (65-110); Potassium 3.8 mmol/L (3.4-5.0); Sodium 140 mmol/L (137-145)
--- NOTE | 2024-05-01 10:13 | ED.GENADULT ---
HPI - General Adult General Chief complaint: Weakness Stated complaint: weakness Time Seen by Provider: 05/01/24 10:10 Source: patient, family and EMS Limitations: no limitations History of Present Illness HPI narrative: 88 years old white female came from long-term by ambulance after ground level fall yesterday without any injuries or complaining of pain. Per report patient has not been acting herself. Patient complaining of general weakness. History of dementia patient at baseline mentation. Denying any fever, chills, headache, chest pain, back pain, neck pain or abdominal pain. Related Data Allergies Allergy/AdvReac Type Severity Reaction Status Date / Time sulfamethizole Allergy Unknown Unknown Verified 05/01/24 09:47 sulfamethoxazole Allergy Unknown UNKNOWN Verified 05/01/24 09:47 trimethoprim Allergy Unknown Unknown Verified 05/01/24 09:47 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 and presenium GERD (gastroesophageal reflux disease) Hematoma, subdural, with loss of consciousness, traumatic Hip fracture, left Impaired gait Lupus (systemic lupus erythematosus) Major depressive disorder, recurrent, moderate Memory loss Mixed hyperlipidemia Osteopenia Other specified hypothyroidism Pulmonary nodule, right Rheumatoid arthritis involving multiple sites with positive rheumatoid factor Seasonal allergies Spinal stenosis, 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 neurogenic claudication Status post fracture of left hip Surgical History Surgical History History of arthroplasty of left hip History of total right knee replacement Family History Family History Father Family history of lung cancer Mother Family history of emphysema Other Family history of arthritis Family history of malignant neoplasm Hypertension Social History Social History Social History: Smoking status: Never smoker Second hand tobacco smoke exposure: No Alcohol intake: never Alcohol use details: Occasionally Substance use: never Substance use type: does not use Do You Feel Safe in your Home?: Yes Lack of Transportation: No Lack of Food: Never True Current Housing: I Have Housing Concerned About Future Housing: No Difficulty Paying Gas/Electric Bills: No Difficulty Paying for Meds: No Currently Unemployed: No Education: High School Diploma/GED Difficulty w/ Childcare or Family Care: No Living arrangements: with family Occupation/Education: retired Gender identity (if verbalized by the patient): Female Sexual Orientation (if Verbalized by the Patient): Straight or Heterosexual Spiritual care concerns: No Exam Narrative: General appearance: Well-developed, well-nourished Skin: Normal color Head: Normocephalic, nontraumatic Eyes: Clear conjunctiva ENT: Oropharynx normal, ears normal, nose normal Neck: Supple, nontender Chest and respiratory: Airway patent, no respiratory distress, no accessory muscle use Heart: Regular rate/rhythm Abdomen: Soft, nontender, no organomegaly, quiet bowel sounds Vascular: Normal peripheral pulses, normal capillary refill. Musculoskeletal: Normal range of motion, nontender back Neurologic: Alert and oriented To her name only. Course Vital Signs Vital signs: Vital Signs Temperature 36.9 C 05/01/24 09:41 Pulse Rate 74 05/01/24 09:41 Respiratory Rate 17 05/01/24 09:41 Blood Pressure 113/56 L 05/01/24 09:41 Pulse Oximetry 97 05/01/24 09:41 Temperature 36.9 C 05/01/24 09:41 Pulse Rate 169 H 05/01/24 10:53 Respiratory Rate 17 05/01/24 09:41 Blood Pressure 83/63 L 05/01/24 10:53 Pulse Oximetry 97 05/01/24 09:41 Medical Decision Making MDM Narrative Medical decision making narrative: Patient came to the ED with general weakness Vital signs are stable Physical examination showing it patient lying down in bed, looks comfortable, not in any pain or distress, physical examination is unremarkable except for dementia Differential diagnosis major depression, urinary tract infection, electrolyte imbalance, dehydration, pneumonia Blood workup today showed WBC of 6.5 Urinalysis showed evidence of infection Chest x-ray showed no acute abnormality Rocephin IV started, admit to hospital for observation. Vital Signs Vital Signs: Vital Signs Temperature 36.9 C 05/01/24 09:41 Pulse Rate 74 05/01/24 09:41 Respiratory Rate 17 05/01/24 09:41 Blood Pressure 113/56 L 05/01/24 09:41 Pulse Oximetry 97 05/01/24 09:41 Temperature 36.9 C 05/01/24 09:41 Pulse Rate 169 H 05/01/24 10:53 Respiratory Rate 17 05/01/24 09:41 Blood Pressure 83/63 L 05/01/24 10:53 Pulse Oximetry 97 05/01/24 09:41 Lab Data 05/01/24 09:52 05/01/24 09:52 Labs: Lab Results 05/01/24 05/01/24 Range/Units 09:52 10:12 WBC 6.5 (4.5-10.0) K/mm3 RBC 4.10 L (4.2-5.4) M/mm3 Hgb 12.8 (12.0-15.0) g/dL Hct 38.2 (37.0-47.0) % MCV 93.2 (80-100) fl MCH 31.2 (26-34) pg MCHC 33.5 (32-36) g/dl RDW 14.7 H (11.5-14.5) % Plt Count 200 (150-375) k/mm3 MPV 11.1 H (7.4-10.4) fl Immature Gran % (Auto) 0.6 H (0-0.5) % Neut % (Auto) 55.9 (45.5-73.1) % Lymph % (Auto) 30.9 (18.3-44.2) % [place] % (Auto) 11.8 H (2.6-8.5) % Eos % (Auto) 0.5 (0-4.4) % Baso % (Auto) 0.3 (0.2-1.2) % Lymph # (Auto) 2.02 (0.9-3.2) K/mm3 [place] # (Auto) 0.8 H (0.1-0.6) K/mm3 Eos # (Auto) 0.0 (0-0.3) K/mm3 Baso # (Auto) 0.0 (0.0-0.1) K/mm3 Abs Immat Gran (auto) 0.04 H (0.00-0.031) K/mm3 Absolute Neuts (auto) 3.7 (1.3-6.7) K/mm3 Absolute Nucleated RBC 0.000 (0.0-0.012) K/mm3 Nucleated RBC % 0.0 (0.0-0.2) % Sodium 140 (137-145) mmol/L Potassium 3.8 (3.4-5.0) mmol/L Chloride 104 (98-107) mmol/L Carbon Dioxide 29 (22-30) mmol/L Anion Gap 7 (4-12) mmol/L BUN 14 (7-17) mg/dL Creatinine 0.70 (0.7-1.0) mg/dL Estim Creat Clear Calc 46 ml/min Estimated GFR > 60 (59 - ) Glucose 113 H (65-110) mg/dL Calcium 9.0 (8.4-10.2) mg/dL Total Bilirubin 0.7 (0.2-1.3) mg/dL AST 39 H (14-36) U/L ALT 21 (6-35) U/L Alkaline Phosphatase 54 (38-126) U/L Total Protein 8.0 (6.3-8.2) g/dL Albumin 3.9 (3.5-5.1) g/dL Urine Color Yellow (Yellow) Urine Appearance Cloudy H (Clear) Urine pH 6.5 (5.0-9.0) Ur Specific [place] 1.015 (1.001-1.035) Urine Protein Trace (Negative) mg/dL Urine Glucose (UA) Negative (Negative) mg/dL Urine Ketones Negative (Negative) mg/dL Ur Blood (Man) 1+ H (Negative) Urine Nitrate Positive H (Negative) Urine Bilirubin Negative (Negative) Urine Urobilinogen 1.0 (<2.0) mg/dL Leukocyte Esterase Rfl 2+ H (Negative) GOLDEN/UL Urine RBC 11-20 H (0-2) /hpf Urine WBC 21-50 H (0-3) /hpf Ur Squamous Epith Cells None seen (Few) /hpf Urine Bacteria 4+ /hpf Urine Casts 0-2 Imaging Data Radiologist's impression: Impressions Chest X-Ray 05/01/24 11:04 IMPRESSION: 1. No acute cardiopulmonary disease. ECG Data EKG #1: Attestation: I personally reviewed and interpreted this ECG as follows: ECG completion date: 05/01/24 Interpretation: Normal sinus rhythm at 68 beats per minute, left axis deviation, poor R-wave progression, borderline EKG, no previous EKG available for comparison Discharge Plan Discharge Patient Disposition: Still a Patient Prescriptions: No Action duloxetine 30 mg capsule,delayed release(DR/EC) 30 mg PO DAILY Qty: 90 2RF folic acid 1 mg tablet 1 mg PO DAILY Qty: 90 4RF pantoprazole 40 mg tablet,delayed release (DR/EC) See Rx Instructions .ROUTE .COMPLEX Qty: 90 3RF Dose Instruction: TAKE 1 TABLET EVERY MORNING Rx Instructions: TAKE 1 TABLET EVERY MORNING lisinopril 5 mg tablet See Rx Instructions .ROUTE .COMPLEX Qty: 90 3RF Dose Instruction: TAKE 1 TABLET DAILY Rx Instructions: TAKE 1 TABLET DAILY donepezil 10 mg tablet See Rx Instructions .ROUTE .COMPLEX Qty: 90 3RF Dose Instruction: TAKE 1 TABLET DAILY AT BEDTIME Rx Instructions: TAKE 1 TABLET DAILY AT BEDTIME methotrexate sodium 2.5 mg tablet 2.5 mg PO 3XW Qty: 36 4RF Rx Instructions: 1 tab q12h x3 doses weeklt ( 7.5mg weekly) levothyroxine [Synthroid] 88 mcg tablet See Rx Instructions .ROUTE .COMPLEX Qty: 90 3RF Dose Instruction: TAKE 1 TABLET DAILY Rx Instructions: TAKE 1 TABLET DAILY memantine 10 mg tablet See Rx Instructions .ROUTE .COMPLEX Qty: 180 3RF Dose Instruction: TAKE 1 TABLET TWICE A DAY Rx Instructions: TAKE 1 TABLET TWICE A DAY aripiprazole 5 mg tablet See Rx Instructions .ROUTE .COMPLEX Qty: 90 3RF Dose Instruction: TAKE 1 TABLET DAILY Rx Instructions: TAKE 1 TABLET DAILY raloxifene [Evista] 60 mg tablet 60 mg PO DAILY Qty: 90 3RF ropinirole 0.5 mg tablet 0.5 mg PO TID Qty: 90 2RF Follow-up/Referrals: Patricia Lassiter MD [Primary Care Provider] -
[2024-05-01 10:26] LABS: Add Urine Microscopic? YES; Appearance Urine Cloudy (Clear); Bacteria Urine 4+ /hpf; Bilirubin Urine Negative (Negative); Blood Urine 1+ (Negative); Color Urine Yellow (Yellow); Glucose Urine UA Negative (Negative); Ketones Urine Negative (Negative); Leukocyte Esterase Ur 2+ LEU/UL (Negative); Nitrate Urine Positive (Negative); Non Pathogenic Casts 0-2; Protein Urine Trace mg/dL (Negative); Specific Grav Ur 1.015 (1.001-1.035); Squamous Epithelial Cell Urine None Seen /hpf (Few); WBC Urine 21-50 /hpf (0-3); pH Urine 6.5 (5.0-9.0)
[2024-05-01] MEDS: SODIUM CHLORIDE 0.9% IV 1,000 ML 500 ML IV CONT (11:55)
[2024-05-01 12:17] LABS: Lactic Acid Reflex 1.3 mmol/L (0.7-2.0)
[2024-05-01 12:21] LABS: CRP < 0.5 mg/dL (<1.0)
--- NOTE | 2024-05-01 12:39 | PM.IMHP ---
H&P: HPI History of Present Illness Date/Time: 05/01/24 12:39 Chief Complaint: AMS, Fall Narrative: 88 y/o F presents here with altered mental status and fall with PMH of dementia,AVS, RA, Hypothyroid, Alzheimer 's dementia, GERD, MDD, and recurrent falls and uti's. The patient presents here with fall and not acting like her usual self from [facility] via EMS. Per facility report to EMS, the patient had a ground level fall that occurred yesterday. Patient attempts to get out of bed frequently without assistance due to dementia, she did the same at around 03:00 last night and slid of out of bed. Post fall there were no reported injuries or complaints of pain. However, EMS was called today due to patient not acting like herself and the facility reported to the patient's that her oxygen levels were low. Since arrival her O2 sat has ranged from 96 - 100. The patient has dementia and is currently A&Ox2. 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 She is currently reporting generalized weakness. She denies dysuria, abdominal pain, fever, chills, body aches, nausea, vomiting, diarrhea, cough, or shortness of breath. Initial VS at presentation: 98.4? F, HR 74, RR 17, 113/56, and 97% on RA. ED workup showed: No leukocytosis, no anemia, no significant electrolyte derangements, creatinine 0.7 and GFR >60, glucose 113, lactic 1.3, and UA consistent with UTI. CXR showed no acute cardiopulmonary disease. Review of Systems Review of Systems: ROS unobtainable: Yes unobtainable due to mental status (limited secondary to dementia) [facility] Past Medical History Medical History Aortic stenosis with trileaflet valve Balance problem Benign essential HTN Dementia Dementia arising in the senium and presenium GERD (gastroesophageal reflux disease) Hematoma, subdural, with loss of consciousness, traumatic Hip fracture, left Impaired gait Lupus (systemic lupus erythematosus) Major depressive disorder, recurrent, moderate Memory loss Mixed hyperlipidemia Osteopenia Other specified hypothyroidism Pulmonary nodule, right Rheumatoid arthritis involving multiple sites with positive rheumatoid factor Seasonal allergies Spinal stenosis, 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 neurogenic claudication Status post fracture of left hip Surgical History Surgical History History of arthroplasty of left hip History of total right knee replacement Family History Family History Father Family history of lung cancer Mother Family history of emphysema Other Family history of arthritis Family history of malignant neoplasm Hypertension Social History Social History Social History: Smoking status: Never smoker Second hand tobacco smoke exposure: Yes Alcohol intake: never Alcohol use details: Occasionally Substance use: never Substance use type: does not use Do You Feel Safe in your Home?: Yes Lack of Transportation: No Lack of Food: Never True Current Housing: I Have Housing Concerned About Future Housing: No Difficulty Paying Gas/Electric Bills: No Difficulty Paying for Meds: No Currently Unemployed: No Education: High School Diploma/GED Difficulty w/ Childcare or Family Care: No Living arrangements: with family Occupation/Education: retired Gender identity (if verbalized by the patient): Female Sexual Orientation (if Verbalized by the Patient): Straight or Heterosexual Spiritual care concerns: No Meds Home Medications and Allergies Home Medications Medication Instructions Recorded Confirmed Type folic acid 1 mg tablet 1 mg PO DAILY #90 tabs 03/11/23 05/01/24 Rx methotrexate sodium 2.5 mg tablet 2.5 mg PO 3XW #36 tabs 11/04/23 05/01/24 Rx duloxetine 30 mg capsule,delayed 30 mg PO DAILY #90 caps 01/23/24 05/01/24 Rx release raloxifene 60 mg tablet (Evista) 60 mg PO DAILY #90 tabs 03/13/24 05/01/24 Rx ropinirole 0.5 mg tablet 0.5 mg PO TID #90 tabs 03/29/24 05/01/24 Rx aripiprazole 5 mg tablet 2.5 mg PO DAILY 05/01/24 05/01/24 History donepezil 10 mg tablet 10 mg PO HS 05/01/24 05/01/24 History levothyroxine 88 mcg tablet 88 mcg PO DAILY 05/01/24 05/01/24 History (Synthroid) lisinopril 5 mg tablet 5 mg PO DAILY 05/01/24 05/01/24 History memantine 10 mg tablet 10 mg PO DAILY 05/01/24 05/01/24 History pantoprazole 40 mg tablet,delayed 40 mg PO DAILY 05/01/24 05/01/24 History release ropinirole 0.5 mg tablet 0.5 mg PO TID 05/01/24 05/01/24 History Allergies Allergy/AdvReac Type Severity Reaction Status Date / Time sulfamethizole Allergy Unknown Unknown Verified 05/01/24 15:53 sulfamethoxazole Allergy Unknown UNKNOWN Verified 05/01/24 15:53 trimethoprim Allergy Unknown Unknown Verified 05/01/24 15:53 Vital Signs Vital Signs - 24 hr 05/01/24 09:41 05/01/24 10:48 05/01/24 10:51 Temperature 98.4 F Pulse Rate 74 70 78 Respiratory Rate 17 Blood Pressure 113/56 L 122/67 102/65 Pulse Oximetry 97 05/01/24 10:53 05/01/24 09:50 05/01/24 10:01 Temperature 97.9 F Pulse Rate 69 70 Respiratory Rate 18 Blood Pressure 83/63 L 101/52 L Pulse Oximetry 100 05/01/24 11:46 Temperature Pulse Rate 78 Respiratory Rate 16 Blood Pressure 111/62 Pulse Oximetry 97 Exam Const: General: comfortable and no acute distress Other: , female, elderly, nontoxic appearance HENMT: Face/Nose/Sinus: Normal nares present Mouth: Yes moist mucous membranes Eyes: General: appearance normal, both eyes and all related structures Sclera: sclerae normal Pupils: Equal, round and reactive pupils present EOM: EOMs intact bilaterally Resp: Effort & Inspection: normal respiratory effort Auscultation: clear to auscultation bilaterally Cardio: Rate: regular rate Rhythm: regular rhythm Other: + murmur with squeaking quality. GI: Other: Abdomen soft, nondistended, nontender. Skin: General skin exam: normal color and no rashes or lesions noted Wounds: no wounds Neuro: Speech: normal speech Motor exam (neuro): 5/5 motor strength present throughout Sensory Exam: normal sensation Other: Generalized weakness, A&O x2 (self and place). Extrem: Other: Trace edema to bilateral ankles, symmetric. Psych: Mental Status: mental status grossly normal Affect: normal affect Other: poor insight and judgment at present, pleasant. H&P: Results Labs Labs: Short CBC 05/01/24 Range/Units 09:52 WBC 6.5 (4.5-10.0) K/mm3 Hgb 12.8 (12.0-15.0) g/dL Hct 38.2 (37.0-47.0) % Plt Count 200 (150-375) k/mm3 BMP 05/01/24 09:52 Sodium 140 Potassium 3.8 Chloride 104 Carbon Dioxide 29 BUN 14 Creatinine 0.70 Glucose 113 H Calcium 9.0 Liver Function 05/01/24 Range/Units 09:52 Total Bilirubin 0.7 (0.2-1.3) mg/dL AST 39 H (14-36) U/L ALT 21 (6-35) U/L Alkaline Phosphatase 54 (38-126) U/L Albumin 3.9 (3.5-5.1) g/dL Urine 05/01/24 Range/Units 10:12 Urine Color Yellow (Yellow) Urine Appearance Cloudy H (Clear) Urine pH 6.5 (5.0-9.0) Ur Specific [place] 1.015 (1.001-1.035) Urine Protein Trace (Negative) mg/dL Urine Glucose (UA) Negative (Negative) mg/dL Assessment and Plan Assessment and plan (1) Urinary tract infection: Qualifiers: Hematuria presence: without hematuria Urinary tract infection type: acute cystitis Qualified Code(s): N30.00 - Acute cystitis without hematuria Code(s): N39.0 - Urinary tract infection, site not specified Status: Acute Assessment and Plan: - UA: Cloudy, +blood, positive nitrates, 2+ leuks, 11-20 RBC, 21-50 WBC, 4+ bacteria, no epithelial cells. - UC pending - previous micro reviewed, patient grew E coli intermediate to Cipro and Levaquin, Pseudomonas that was resistant to imipenem and intermediate to meropenem and Zosyn, and E coli that was pansensitive. - started on Ceftriaxone, transitioned to gentamicin given Pseudomonas history within the last year. ABX initiated on 05/01. - IV fluids at 75 mL/hr, monitor I&Os - patient at baseline (hx of dementia), suspect some alteration secondary to UTI/metabolic encephalopathy. monitor. (2) Weakness: Code(s): R53.1 - Weakness Status: Acute Assessment and Plan: - suspect this is multifactorial secondary to rheumatoid arthritis, dementia, and acute UTI - PT/OT eval and treat - fall precautions (3) Benign essential HTN: Code(s): I10 - Essential (primary) hypertension Status: Acute Assessment and Plan: - chronic, currently 111/62 - continue home medications: Lisinopril 5 mg daily - monitor Plan Diet: Heart healthy GI Prophylaxis: Not currently indicated DVT Prophylaxis: SCDs Lines: Peripheral Code Status: DNR Quality VTE Prophylaxis VTE prophylaxis: mechanical ordered Hospitalist [facility] Advance Care Plan I have confirmed that the patient's Advanced Care Plan is present, code status is documented, or surrogate decision maker is listed in patient medical record.: Yes Medication Reconciliation I have utilized all available resources to obtain, update and review the patients current medications (includes all prescriptions, OTC, herbals, cannabis, and nutritional supplements).: Yes
--- NOTE | 2024-05-01 13:28 | PC.NURSE ---
at bedside agreeable with POC. Pt tolerating po fluids
--- NOTE | 2024-05-01 13:45 | ADMGEN ---
This patient, Hortencia Loaiza, was admitted to [facility] Surg Room 317-01. Patient/family oriented to hospital policies and general routines including ID bracelet, bed and alarms, visiting hours, pain management, procedures, bathroom and other care routines, personal items, smoking policy, room service/diet, and visiting hours. Information on how to activate the Rapid Response Team has been discussed. Patient/Family are encouraged to report perceived risks to care and to ask questions if they do not understand what they are told or what they should do.
[2024-05-01] MEDS: SODIUM CHLORIDE 0.9% IV 1,000 ML 75 ML IV CONT (16:41)
[2024-05-01] MEDS: rOPINIRole HCL 0.5 MG TABLET PO (16:41)
[2024-05-01] MEDS: GENTAMICIN SULFATE INJ 370 MG in DEXTROSE 5% 100 ML 100 MG IVPB (16:41)
[2024-05-01] MEDS: DONEPEZIL HCL 10 MG TABLET PO (21:09)
[2024-05-02 01:08] LABS: Gentamicin Random 6.5 ug/mL (5.0-12.0)
--- NOTE | 2024-05-02 01:33 | PC.NURSE ---
Daylight Savings Time For Daylight Savings Time Ending in the Fall - Clocks are moved back. For Daylight Savings Time Beginning in the Spring - Clocks are moved ahead. For [facility], the time of change occurs at 0200 hrs. Time is taken from the library media technician. This entry on the patient's chart recognizes the change in time reflected during documentation. Example: 2 entries for vital signs may be charted for 0200 hrs.
[2024-05-02 06:06] VITALS: BP 127/79; PULSE 85; RESP 18; TEMP 36.9; O2SAT 98
[2024-05-02] MEDS: LEVOTHYROXINE SODIUM 88 MCG TABLET PO (06:20)
[2024-05-02 07:21] LABS: Basophils Percent Auto 0.2 % (0.2-1.2); Eosinophils Percent Auto 0.4 % (0-4.4); Hematocrit 35.3 % (37.0-47.0); Hemoglobin 11.2 g/dL (12.0-15.0); Immature Granulocyte Absolute 0.04 K/mm3 (0.00-0.031); Immature Granulocyte Percent A 0.8 % (0-0.5); Lymphocytes Absolute Auto 1.83 K/mm3 (0.9-3.2); Lymphocytes Percent Auto 36.3 % (18.3-44.2); Mean Corpuscular HGB Conc 31.7 g/dl (32-36); Mean Corpuscular Hemoglobin 30.2 pg (26-34); Mean Corpuscular Volume 95.1 fl (80-100); Mean Platelet Volume 11.3 fl (7.4-10.4); Monocytes Absolute Auto 0.8 K/mm3 (0.1-0.6); Monocytes Percent Auto 15.1 % (2.6-8.5); Neutrophils Absolute Auto 2.4 K/mm3 (1.3-6.7); Neutrophils Percent Auto 47.2 % (45.5-73.1); Platelet Count Result 178 k/mm3 (150-375); Red Blood Count 3.71 M/mm3 (4.2-5.4); Red Cell Distribution Width 14.7 % (11.5-14.5)
[2024-05-02 08:00] VITALS: BP 107/60; PULSE 81; RESP 20; TEMP 36.6; O2SAT 98
[2024-05-02 08:29] LABS: Anion Gap 4 mmol/L (4-12); Blood Urea Nitrogen 12 mg/dL (7-17); Calcium 8.4 mg/dL (8.4-10.2); Carbon Dioxide 29 mmol/L (22-30); Chloride 108 mmol/L (98-107); Estimated CRCL calculation 42 ml/min; Estimated Glomerular Filt Rate > 60; Glucose 84 mg/dL (65-110); Potassium 3.8 mmol/L (3.4-5.0); Sodium 141 mmol/L (137-145)
[2024-05-02 08:33] VITALS: O2SAT 93
[2024-05-02] MEDS: SODIUM CHLORIDE 0.9% IV 1,000 ML 75 ML IV CONT (09:00)
--- NOTE | 2024-05-02 09:00 | P.PNIM_ITS ---
Progress Note: A&P Assessment and Plan (1) Urinary tract infection: Qualifiers: Hematuria presence: without hematuria Urinary tract infection type: acute cystitis Qualified Code(s): N30.00 - Acute cystitis without hematuria Code(s): N39.0 - Urinary tract infection, site not specified Status: Acute Assessment and Plan: - UA: Cloudy, 1+ blood, positive nitrates, 2+ leuks, 11-20 RBC, 21-50 WBC, 4+ bacteria, no epithelial cells. - UC obtained on 05/01: pending - previous micro reviewed 06/10/23: E coli intermediate to Cipro and Levaquin 02/11/23: Pseudomonas resistant to imipenem and intermediate to meropenem and Zosyn 08/14/22: E coli that was pansensitive. - started on Ceftriaxone, transitioned to gentamicin given Pseudomonas history within the last year. ABX initiated on 05/01. - IV fluids at 75 mL/hr, monitor I&Os - patient at baseline (hx of dementia), suspect some alteration secondary to UTI/metabolic encephalopathy. monitor. (2) Weakness: Code(s): R53.1 - Weakness Status: Acute Assessment and Plan: - suspect this is multifactorial secondary to rheumatoid arthritis, dementia, and acute UTI - PT/OT eval and treat - fall precautions (3) Benign essential HTN: Code(s): I10 - Essential (primary) hypertension Status: Acute Assessment and Plan: Chronic, continue home medications. - Lisinopril 5 mg daily - monitor (4) Hypothyroidism (acquired): Code(s): E03.9 - Hypothyroidism, unspecified Status: Acute Assessment and Plan: Chronic, continue home medication. - Levothyroxine 88 mcg daily - TSH 1.250 on 12/09/23 Plan Diet: Heart healthy GI Prophylaxis: Not currently indicated DVT Prophylaxis: SCDs Lines: Peripheral Code Status: DNR Time Spent With Patient Time with patient: 25 - 35 minutes Subjective Date/time seen: 05/02/24 09:00 Interval history: 88 y/o F with past medical history of dementia (AOx2 baseline per chart review), AVS, RA, Hypothyroid, Alzheimer 's dementia, GERD, MDD, and recurrent falls and uti's presents to the hospital with altered mental status and fall . Patient is pleasant sitting up in her chair with daughter at bedside. She remains AOx2 (person, place) which is baseline. Per daughter patients mentation as greatly improved since admission. Patient has no complaints at this time, denying chest pain, shortness of breath, palpitations, nausea/vomiting, abdominal pain and urinary symptoms (dysuria, burning and hematuria). Review of Systems Review of Systems: All systems reviewed & are unremarkable except as noted in HPI and below Exam Narrative: AF HR 81 RR 20 Spo2 98 BP 107/60 General: female in no acute respiratory distress who is nontoxic appearing, lying semi recumbent in bed. HEENT: Normocephalic. Atraumatic. Extraocular movement intact. Sclera clear and anicteric. No facial asymmetry. Chest: Lungs are clear to auscultation bilaterally. No wheezes or crackles. CV: Heart was regular rate and rhythm. S1-S2. No murmurs, gallops, or rubs. Abd: Abdomen was soft. Nontender. Nondistended. Positive bowel sounds. No organomegaly or masses. Ext: No clubbing, cyanosis, or edema. 2+ DP pulses bilaterally. Neuro: Patient is alert and oriented to person and place (baseline). Speech is clear. Objective Data Vital Signs Vital Signs: Vital Signs - 24 hr 05/01/24 10:48 05/01/24 10:51 05/01/24 10:53 Temperature Pulse Rate 70 78 69 Respiratory Rate Blood Pressure 122/67 102/65 83/63 L Pulse Oximetry Oxygen Delivery Fraction of Inspired Oxygen 05/01/24 10:01 05/01/24 11:46 05/01/24 12:48 Temperature 97.9 F Pulse Rate 78 70 Respiratory Rate 18 16 16 Blood Pressure 101/52 L 111/62 114/65 Pulse Oximetry 100 97 96 Oxygen Delivery Fraction of Inspired Oxygen 05/01/24 13:20 05/01/24 13:45 05/01/24 14:18 Temperature 97.8 F 97.6 F Pulse Rate 68 73 Respiratory Rate 18 18 Blood Pressure 114/76 115/55 L Pulse Oximetry 98 98 Oxygen Delivery Room Air Fraction of Inspired Oxygen 05/01/24 20:56 05/02/24 06:06 05/02/24 08:33 Temperature 98.1 F 98.4 F Pulse Rate 70 85 Respiratory Rate 16 18 Blood Pressure 111/62 127/79 Pulse Oximetry 98 98 93 Oxygen Delivery Room Air Fraction of Inspired Oxygen 21 Intake/Output Intake/Output: Intake & Output 04/29/24 04/30/24 05/01/24 05/02/24 23:59 23:59 23:59 22:59 Intake Total 1279.25 240 Output Total 1000 Balance 1279.25 -760 Meds/Results Medications: Active Medications Generic Name Dose Route Start Last Admin Trade Name Freq PRN Reason Stop Dose Admin Acetaminophen 650 mg 05/01/24 12:48 Acetaminophen 325 Mg Tablet PO Q6H PRN Mild Pain (1-3) or Fever Aripiprazole 2.5 mg 05/02/24 09:00 Aripiprazole 2.5 Mg Tablet PO DAILY AYLIN Donepezil HCl 10 mg 05/01/24 21:00 05/01/24 21:09 Donepezil Hcl 10 Mg Tablet PO 10 mg HS AYLIN Administration Duloxetine HCl 30 mg 05/02/24 09:00 Duloxetine Hcl 30 Mg Capsule.Dr PO DAILY AYLIN Folic Acid 1 mg 05/02/24 09:00 Folic Acid 1 Mg Tablet PO DAILY AYLIN Sodium Chloride 1,000 mls @ 75 mls/hr 05/01/24 12:00 05/01/24 16:41 Normal Saline Iv IV CONT 75 mls/hr .[id number] AYLIN Administration Gentamicin Sulfate 370 mg/ 109.25 mls @ 100 mls/hr 05/03/24 04:00 Dextrose IVPB Q36H AYLIN Levothyroxine Sodium 88 mcg 05/02/24 06:30 05/02/24 06:20 Levothyroxine Sodium 88 Mcg Tablet PO 88 mcg DAILY@0630 AYLIN Administration Lisinopril 5 mg 05/02/24 09:00 Lisinopril 5 Mg Tablet PO DAILY AYLIN Memantine 10 mg 05/02/24 09:00 Memantine 10 Mg Tablet PO DAILY AYLIN Methotrexate 2.5 mg 05/03/24 09:00 Methotrexate 2.5 Mg Tab (*Chemo) PO MoWeFr@0900 AYLIN Pantoprazole Sodium 40 mg 05/02/24 09:00 Pantoprazole 40 Mg Tablet PO DAILY AYLIN Raloxifene HCl 60 mg 05/02/24 09:00 Raloxifene Hcl (*Chemo) 60 Mg Tablet PO DAILY AYLIN Ropinirole HCl 0.5 mg 05/01/24 17:00 05/01/24 16:41 Ropinirole Hcl 0.5 Mg Tablet PO 0.5 mg TID AYLIN Administration Radiology Results: ITS Impressions Chest X-Ray 05/01/24 11:04 IMPRESSION: 1. No acute cardiopulmonary disease. Labs Labs: Laboratory Results - last 24 hr 05/01/24 05/01/24 05/01/24 09:52 10:12 11:58 WBC 6.5 RBC 4.10 L Hgb 12.8 Hct 38.2 MCV 93.2 MCH 31.2 MCHC 33.5 RDW 14.7 H Plt Count 200 MPV 11.1 H Immature Gran % (Auto) 0.6 H Neut % (Auto) 55.9 Lymph % (Auto) 30.9 [place] % (Auto) 11.8 H Eos % (Auto) 0.5 Baso % (Auto) 0.3 Lymph # (Auto) 2.02 [place] # (Auto) 0.8 H Eos # (Auto) 0.0 Baso # (Auto) 0.0 Abs Immat Gran (auto) 0.04 H Absolute Neuts (auto) 3.7 Absolute Nucleated RBC 0.000 Nucleated RBC % 0.0 Sodium 140 Potassium 3.8 Chloride 104 Carbon Dioxide 29 Anion Gap 7 BUN 14 Creatinine 0.70 Estim Creat Clear Calc 46 Estimated GFR > 60 Glucose 113 H Lactic Acid 1.3 Calcium 9.0 Total Bilirubin 0.7 AST 39 H ALT 21 Alkaline Phosphatase 54 C-Reactive Protein < 0.5 Total Protein 8.0 Albumin 3.9 Urine Color Yellow Urine Appearance Cloudy H Urine pH 6.5 Ur Specific [place] 1.015 Urine Protein Trace Urine Glucose (UA) Negative Urine Ketones Negative Ur Blood (Man) 1+ H Urine Nitrate Positive H Urine Bilirubin Negative Urine Urobilinogen 1.0 Leukocyte Esterase Rfl 2+ H Urine RBC 11-20 H Urine WBC 21-50 H Ur Squamous Epith Cells None seen Urine Bacteria 4+ Urine Casts 0-2 Random Gentamicin 05/02/24 05/02/24 00:47 06:47 WBC 5.0 RBC 3.71 L Hgb 11.2 L Hct 35.3 L MCV 95.1 MCH 30.2 MCHC 31.7 L RDW 14.7 H Plt Count 178 MPV 11.3 H Immature Gran % (Auto) 0.8 H Neut % (Auto) 47.2 Lymph % (Auto) 36.3 [place] % (Auto) 15.1 H Eos % (Auto) 0.4 Baso % (Auto) 0.2 Lymph # (Auto) 1.83 [place] # (Auto) 0.8 H Eos # (Auto) 0.0 Baso # (Auto) 0.0 Abs Immat Gran (auto) 0.04 H Absolute Neuts (auto) 2.4 Absolute Nucleated RBC 0.000 Nucleated RBC % 0.0 Sodium 141 Potassium 3.8 Chloride 108 H Carbon Dioxide 29 Anion Gap 4 BUN 12 Creatinine 0.80 Estim Creat Clear Calc 42 Estimated GFR > 60 Glucose 84 Lactic Acid Calcium 8.4 Total Bilirubin AST ALT Alkaline Phosphatase C-Reactive Protein Total Protein Albumin Urine Color Urine Appearance Urine pH Ur Specific [place] Urine Protein Urine Glucose (UA) Urine Ketones Ur Blood (Man) Urine Nitrate Urine Bilirubin Urine Urobilinogen Leukocyte Esterase Rfl Urine RBC Urine WBC Ur Squamous Epith Cells Urine Bacteria Urine Casts Random Gentamicin 6.5 Quality VTE Prophylaxis VTE prophylaxis: mechanical ordered
[2024-05-02] MEDS: FOLIC ACID 1 MG TABLET PO (09:02)
[2024-05-02] MEDS: rOPINIRole HCL 0.5 MG TABLET PO ×3 (09:02→17:39)
[2024-05-02] MEDS: lisinopriL 5 MG TABLET PO (09:02)
[2024-05-02] MEDS: DULoxetine HCL 30 MG CAPSULE.DR PO (09:02)
[2024-05-02] MEDS: MEMANTINE 10 MG TABLET PO (09:02)
[2024-05-02] MEDS: PANTOPRAZOLE 40 MG TABLET PO (09:02)
[2024-05-02] MEDS: RALOXIFENE HCL (*CHEMO) 60 MG TABLET PO (09:02)
[2024-05-02] MEDS: ARIPiprazole 2.5 MG TABLET PO (10:55)
--- NOTE | 2024-05-02 10:55 | PC.NURSE ---
RN admistered the abilify late because RN was waiting on pharm to send the medication since we don't have that dose in the [facility]
[2024-05-02 16:00] VITALS: BP 103/58; PULSE 81; RESP 18; TEMP 36.6; O2SAT 95
[2024-05-02] MEDS: DONEPEZIL HCL 10 MG TABLET PO (20:49)
[2024-05-02 22:00] VITALS: BP 105/52; PULSE 79; RESP 14; TEMP 36.3; O2SAT 96
[2024-05-03] MEDS: GENTAMICIN SULFATE INJ 370 MG in DEXTROSE 5% 100 ML 100 MG IVPB (03:22)
[2024-05-03] MEDS: LEVOTHYROXINE SODIUM 88 MCG TABLET PO (05:52)
[2024-05-03 07:38] LABS: Estimated CRCL calculation 47 ml/min; Estimated Glomerular Filt Rate > 60
--- NOTE | 2024-05-03 08:33 | PM.IMPN ---
Progress Note: A&P Assessment and Plan (1) Urinary tract infection: Qualifiers: Hematuria presence: without hematuria Urinary tract infection type: acute cystitis Qualified Code(s): N30.00 - Acute cystitis without hematuria Code(s): N39.0 - Urinary tract infection, site not specified Status: Acute Assessment and Plan: - UA: Cloudy, 1+ blood, positive nitrates, 2+ leuks, 11-20 RBC, 21-50 WBC, 4+ bacteria, no epithelial cells. - UC obtained on 05/01: Ecoli, sensitivities pending - previous micro reviewed 06/10/23: E coli intermediate to Cipro and Levaquin 02/11/23: Pseudomonas resistant to imipenem and intermediate to meropenem and Zosyn 08/14/22: E coli that was pansensitive. - started on Ceftriaxone, transitioned to gentamicin given Pseudomonas history within the last year. ABX initiated on 05/01. - IV fluids at 75 mL/hr, monitor I&Os - patient at baseline (hx of dementia), suspect some alteration secondary to UTI/metabolic encephalopathy. monitor. (2) Weakness: Code(s): R53.1 - Weakness Status: Acute Assessment and Plan: - suspect this is multifactorial secondary to rheumatoid arthritis, dementia, and acute UTI - PT/OT eval and treat - fall precautions (3) Benign essential HTN: Code(s): I10 - Essential (primary) hypertension Status: Acute Assessment and Plan: Chronic, continue home medications. - Lisinopril 5 mg daily - monitor (4) Hypothyroidism (acquired): Code(s): E03.9 - Hypothyroidism, unspecified Status: Acute Assessment and Plan: Chronic, continue home medication. - Levothyroxine 88 mcg daily - TSH 1.250 on 12/09/23 Plan Diet: Heart healthy GI Prophylaxis: Not currently indicated DVT Prophylaxis: SCDs Lines: Peripheral Code Status: DNR Subjective Date/time seen: 05/03/24 08:33 Interval history: 88 y/o F with past medical history of dementia (AOx2 baseline per chart review), AVS, RA, Hypothyroid, Alzheimer 's dementia, GERD, MDD, and recurrent falls and uti's presents to the hospital with altered mental status and fall . Review of Systems Review of Systems: All systems reviewed & are unremarkable except as noted in HPI and below Exam Narrative: AF General: female in no acute respiratory distress who is nontoxic appearing, lying semi recumbent in bed. HEENT: Normocephalic. Atraumatic. Extraocular movement intact. Sclera clear and anicteric. No facial asymmetry. Chest: Lungs are clear to auscultation bilaterally. No wheezes or crackles. CV: Heart was regular rate and rhythm. S1-S2. No murmurs, gallops, or rubs. Abd: Abdomen was soft. Nontender. Nondistended. Positive bowel sounds. No organomegaly or masses. Ext: No clubbing, cyanosis, or edema. 2+ DP pulses bilaterally. Neuro: Patient is alert and oriented to person and place (baseline). Speech is clear. Objective Data Vital Signs Vital Signs: Vital Signs - 24 hr 05/02/24 16:00 05/02/24 22:00 Temperature 97.8 F 97.4 F L Pulse Rate 81 79 Respiratory Rate 18 14 Blood Pressure 103/58 L 105/52 L Pulse Oximetry 95 96 Intake/Output Intake/Output: Intake & Output 05/01/24 05/02/24 05/02/24 05/03/24 00:59 00:59 23:59 23:59 Intake Total 550 Output Total 1200 Balance -650 Meds/Results Medications: Active Medications Generic Name Dose Route Start Last Admin Trade Name Freq PRN Reason Stop Dose Admin Acetaminophen 650 mg 05/01/24 12:48 Acetaminophen 325 Mg Tablet PO Q6H PRN Mild Pain (1-3) or Fever Aripiprazole 2.5 mg 05/02/24 09:00 05/02/24 10:55 Aripiprazole 2.5 Mg Tablet PO 2.5 mg DAILY AYLIN Administration Donepezil HCl 10 mg 05/01/24 21:00 05/02/24 20:49 Donepezil Hcl 10 Mg Tablet PO 10 mg HS AYLIN Administration Duloxetine HCl 30 mg 05/02/24 09:00 05/02/24 09:02 Duloxetine Hcl 30 Mg Capsule.Dr PO 30 mg DAILY AYLIN Administration Folic Acid 1 mg 05/02/24 09:00 05/02/24 09:02 Folic Acid 1 Mg Tablet PO 1 mg DAILY AYLIN Administration Sodium Chloride 1,000 mls @ 75 mls/hr 05/01/24 12:00 05/02/24 09:00 Normal Saline Iv IV CONT 75 mls/hr .[id number] AYLIN Administration Gentamicin Sulfate 370 mg/ 109.25 mls @ 100 mls/hr 05/03/24 04:00 05/03/24 03:22 Dextrose IVPB 05/12/24 23:59 100 mls/hr Q36H AYLIN Administration Levothyroxine Sodium 88 mcg 05/02/24 06:30 05/03/24 05:52 Levothyroxine Sodium 88 Mcg Tablet PO 88 mcg DAILY@0630 AYLIN Administration Lisinopril 5 mg 05/02/24 09:00 05/02/24 09:02 Lisinopril 5 Mg Tablet PO 5 mg DAILY AYLIN Administration Memantine 10 mg 05/02/24 09:00 05/02/24 09:02 Memantine 10 Mg Tablet PO 10 mg DAILY AYLIN Administration Methotrexate 2.5 mg 05/03/24 09:00 Methotrexate 2.5 Mg Tab (*Chemo) PO MoWeFr@0900 AYLIN Pantoprazole Sodium 40 mg 05/02/24 09:00 05/02/24 09:02 Pantoprazole 40 Mg Tablet PO 40 mg DAILY AYLIN Administration Raloxifene HCl 60 mg 05/02/24 09:00 05/02/24 09:02 Raloxifene Hcl (*Chemo) 60 Mg Tablet PO 60 mg DAILY AYLIN Administration Ropinirole HCl 0.5 mg 05/01/24 17:00 05/02/24 17:39 Ropinirole Hcl 0.5 Mg Tablet PO 0.5 mg TID AYLIN Administration Radiology Results: ITS Impressions Chest X-Ray 05/01/24 11:04 IMPRESSION: 1. No acute cardiopulmonary disease. Labs Labs: Laboratory Results - last 24 hr 05/03/24 06:41 Creatinine 0.70 Estim Creat Clear Calc 47 Estimated GFR > 60 Quality VTE Prophylaxis VTE prophylaxis: mechanical ordered
[2024-05-03 09:04] LABS: Alanine Aminotransferase 18 U/L (6-35); Albumin Level 3.1 g/dL (3.5-5.1); Alkaline Phosphatase 48 U/L (38-126); Anion Gap 7 mmol/L (4-12); Aspartate Amino Transferase 28 U/L (14-36); Bilirubin,Total 0.3 mg/dL (0.2-1.3); Blood Urea Nitrogen 12 mg/dL (7-17); Calcium 8.5 mg/dL (8.4-10.2); Carbon Dioxide 27 mmol/L (22-30); Chloride 107 mmol/L (98-107); Estimated CRCL calculation 42 ml/min; Estimated Glomerular Filt Rate > 60; Glucose 84 mg/dL (65-110); Potassium 3.5 mmol/L (3.4-5.0); Sodium 141 mmol/L (137-145)
[2024-05-03] MEDS: RALOXIFENE HCL (*CHEMO) 60 MG TABLET PO (09:19)
[2024-05-03] MEDS: rOPINIRole HCL 0.5 MG TABLET PO ×2 (09:19→13:39)
[2024-05-03] MEDS: DULoxetine HCL 30 MG CAPSULE.DR PO (09:19)
[2024-05-03] MEDS: MEMANTINE 10 MG TABLET PO (09:19)
[2024-05-03] MEDS: PANTOPRAZOLE 40 MG TABLET PO (09:19)
[2024-05-03] MEDS: FOLIC ACID 1 MG TABLET PO (09:19)
[2024-05-03] MEDS: ARIPiprazole 2.5 MG TABLET PO (09:19)
[2024-05-03] MEDS: lisinopriL 5 MG TABLET PO (09:19)
[2024-05-03] MEDS: METHOTREXATE 2.5 MG TAB (*CHEMO) PO (09:22)
[2024-05-03 09:33] LABS: Basophils Percent Auto 0.4 % (0.2-1.2); Eosinophils Percent Auto 0.5 % (0-4.4); Hematocrit 34.7 % (37.0-47.0); Immature Granulocyte Absolute 0.04 K/mm3 (0.00-0.031); Immature Granulocyte Percent A 0.7 % (0-0.5); Lymphocytes Absolute Auto 2.03 K/mm3 (0.9-3.2); Lymphocytes Percent Auto 35.7 % (18.3-44.2); Mean Corpuscular HGB Conc 31.7 g/dl (32-36); Mean Corpuscular Hemoglobin 30.4 pg (26-34); Mean Corpuscular Volume 95.9 fl (80-100); Mean Platelet Volume 11.6 fl (7.4-10.4); Monocytes Percent Auto 16.7 % (2.6-8.5); Neutrophils Absolute Auto 2.6 K/mm3 (1.3-6.7); Platelet Count Result 189 k/mm3 (150-375); Red Blood Count 3.62 M/mm3 (4.2-5.4); Red Cell Distribution Width 14.7 % (11.5-14.5); White Blood Count 5.7 K/mm3 (4.5-10.0)
--- NOTE | 2024-05-03 13:25 | P.DS_ITS ---
DS: Admitting Diagnosis Discharge Date 05/03/2024 Admitting Diagnosis Urinary tract infection weakness benign hypertension hypothyroidism DS: Discharge Diagnosis Discharge Diagnosis (1) Urinary tract infection: Qualifiers: Hematuria presence: without hematuria Urinary tract infection type: acute cystitis Qualified Code(s): N30.00 - Acute cystitis without hematuria Code(s): N39.0 - Urinary tract infection, site not specified Status: Acute (2) Weakness: Code(s): R53.1 - Weakness Status: Acute (3) Benign essential HTN: Code(s): I10 - Essential (primary) hypertension Status: Acute (4) Hypothyroidism (acquired): Code(s): E03.9 - Hypothyroidism, unspecified Status: Acute DS: Summary Hospital Course Reason for hospitalization: Urinary tract infection weakness benign hypertension hypothyroidism Hospital Course: 88 y/o F with past medical history of dementia (AOx2 baseline per chart review), AVS, RA, Hypothyroid, Alzheimer 's dementia, GERD, MDD, and recurrent falls and uti's presents to the hospital with altered mental status and fall. Patient attempts to get out of bed frequently without assistance due to dementia, she did the same at around 03:00 the night prior to admission and slid of out of bed. Post fall there were no reported injuries or complaints of pain. She did not hit her head or have LOC. UA was concerning for infection and patient was started on IV antibiotics. Urine culture was positive for Ecoli and patient was transitioned to oral antibiotics. During her admission patient returned to baseline mental status. She worked with PT/OT who recommend continued therapy with home health. At time of discharge patient has no complaints, denying chest pain,shortness of breath, nausea/vomiting and abdominal pain. Patient discharged back to her assisted living with home health. She is to continue her antibiotics as prescribed her primary care provider in 1 week. Status at Discharge Functional status at discharge: wheelchair bound Time Spent with Patient Time attestation: Total time spent providing and/or coordinating discharge services: Time spent: Greater than 30 minutes Exam Narrative: AF HR 71 RR 22 SpO2 100 BP 117/65 General: female in no acute respiratory distress who is nontoxic appearing, lying semi recumbent in bed. HEENT: Normocephalic. Atraumatic. Extraocular movement intact. Sclera clear and anicteric. No facial asymmetry. Chest: Lungs are clear to auscultation bilaterally. No wheezes or crackles. CV: Heart was regular rate and rhythm. S1-S2. No murmurs, gallops, or rubs. Abd: Abdomen was soft. Nontender. Nondistended. Positive bowel sounds. No organomegaly or masses. Ext: No clubbing, cyanosis, or edema. 2+ DP pulses bilaterally. Neuro: Patient is alert and oriented to person and place (baseline). Speech is clear. DS: Data Data Completed and Pending Completed studies during hospitalization: Chest XR Labs on day of discharge: Labs from last 24 hours 05/03/24 05/03/24 05/03/24 06:41 06:41 06:41 WBC RBC Hgb Hct MCV MCH MCHC RDW Plt Count MPV Immature Gran % (Auto) Neut % (Auto) Lymph % (Auto) [place] % (Auto) Eos % (Auto) Baso % (Auto) Lymph # (Auto) [place] # (Auto) Eos # (Auto) Baso # (Auto) Abs Immat Gran (auto) Absolute Neuts (auto) Absolute Nucleated RBC Nucleated RBC % Sodium Potassium Chloride Carbon Dioxide Anion Gap BUN Creatinine 0.80 Estim Creat Clear Calc 42 47 Estimated GFR > 60 > 60 Glucose 84 Calcium 8.5 Total Bilirubin 0.3 AST 28 ALT 18 Alkaline Phosphatase 48 Total Protein 6.0 L Albumin 3.1 L 05/03/24 06:41 WBC 5.7 RBC 3.62 L Hgb 11.0 L Hct 34.7 L MCV 95.9 MCH 30.4 MCHC 31.7 L RDW 14.7 H Plt Count 189 MPV 11.6 H Immature Gran % (Auto) 0.7 H Neut % (Auto) 46.0 Lymph % (Auto) 35.7 [place] % (Auto) 16.7 H Eos % (Auto) 0.5 Baso % (Auto) 0.4 Lymph # (Auto) 2.03 [place] # (Auto) 1.0 H Eos # (Auto) 0.0 Baso # (Auto) 0.0 Abs Immat Gran (auto) 0.04 H Absolute Neuts (auto) 2.6 Absolute Nucleated RBC 0.000 Nucleated RBC % 0.0 Sodium 141 Potassium 3.5 Chloride 107 Carbon Dioxide 27 Anion Gap 7 BUN 12 Creatinine 0.70 Estim Creat Clear Calc Estimated GFR Glucose Calcium Total Bilirubin AST ALT Alkaline Phosphatase Total Protein Albumin Discharge Plan Discharge Attending physician on discharge: Edna Kang Discharging Clinician: Emely Norris Anticipated Discharge Date/Time: 05/03/24 13:14 Patient Disposition: NH Longterm/Asst Living Activity: as tolerated Diet: as tolerated and heart healthy Discharge Instructions: Discharge disposition: Patient was admitted to the hospital for altered mental status She was diagnosed with a urinary tract infection during her admission Take all medications as prescribed even if feeling better Augmentin twice a day, course to be completed on 05/09. Attached is information on this medication. Eat well balanced meals and stay hydrated Keep active to remain strong Avoid use of diapers or pads Good daniel Care every 2 hours Trend urine output Monitor blood pressures Take caution while standing, rising, or moving Change positions slowly taking a break between each position change If you standing feel dizzy sat back down and take a break Encouraged to continue with yearly vaccinations Return to the emergency department if he developed sudden shortness of breath, chest pain, nausea, vomiting, upset stomach or intractable diarrhea Return to the emergency department if you develop fever greater than 101.5 Follow-up with the primary care physician within 1 weeks Thank you for [facility] for your healthcare needs Per Care Coordination Pt. has been accepted to have [facility] services for RN, PT, OT . [phone]. RN please fax completed discharge instructions to [phone] Please have PT/OT eval. and treat. at [facility]. Patient Instructions: Antibiotic Form, Amoxicillin/Clavulanate Potassium (By mouth), Urinary Tract Infection in Older Adults (DC) Patient Language: Peruvian Stand Alone Forms: General Discharge Information Follow-up/Referrals: Patricia Lassiter MD [Primary Care Provider] - 1 Week Discharge Medications: New amoxicillin-pot clavulanate 875-125 mg tablet 1 tablet PO Q12H Qty: 13 0RF Continued duloxetine 30 mg capsule,delayed release(DR/EC) 30 mg PO DAILY Qty: 90 2RF donepezil 10 mg tablet 10 mg PO HS Rx Instructions: TAKE 1 TABLET DAILY AT BEDTIME levothyroxine [Synthroid] 88 mcg tablet 88 mcg PO DAILY pantoprazole 40 mg tablet,delayed release (DR/EC) 40 mg PO DAILY lisinopril 5 mg tablet 5 mg PO DAILY aripiprazole 5 mg tablet 2.5 mg PO DAILY memantine 10 mg tablet 10 mg PO DAILY ropinirole 0.5 mg tablet 0.5 mg PO TID folic acid 1 mg tablet 1 mg PO DAILY Qty: 90 4RF methotrexate sodium 2.5 mg tablet 2.5 mg PO 3XW Qty: 36 4RF Rx Instructions: one tablet three times a week Friday, Friday, Friday raloxifene [Evista] 60 mg tablet 60 mg PO DAILY Qty: 90 3RF ropinirole 0.5 mg tablet 0.5 mg PO TID Qty: 90 2RF Date of admission: 05/02/24 11:27 Primary Care Provider: Patricia Lassiter Admitting Provider: Edna Kang Attending physician on admission: Emely Norris Condition: Stable Hospitalist MIPS Heart Failure (Exclusion) Patient has history of Heart Transplant or Left Ventricular Assistive Device?: No IF YES, STOP HERE Heart Failure (Qualifier) Patient has current or prior documentation of LVEF less than or equal to 40%, or mod/servere depressed LVSF?: No IF NO, STOP HERE
[2024-05-03 14:00] VITALS: BP 117/65; PULSE 71; RESP 22; TEMP 36.2; O2SAT 100
--- NOTE | 2024-05-03 14:09 | PC.NURSE ---
RN faxed DC orders to [facility] and also went over DC with the patient spouse and sent a paper copy to the facility. Pt spouse was provided a script for Augmentin since the facility wants the script filled prior to arrival.
--- NOTE | 2024-05-03 15:59 | PC.NURSE ---
RN attempted a 4th time to give report since I never got called back by the facility nurse so RN ensured to fax the report a second time. RN attempted to call report at [phone], [phone], [phone], and [phone] but Abilio the person who ran the facility states that the RN was still in a meeting
== END 2024-05-03 14:28 | DRG 689 ==
LOC: ANHED 11:56 → ANH3MEDSUR 13:08
PROVIDERS: Student in an Organized Health Care Education/Training Program; Admitting Provider Internal Medicine; Emergency Provider Emergency Medicine; PCP Family Medicine; Visit Provider Student in an Organized Health Care Education/Training Program
DX: N39.0 Urinary tract infection, site not specified (principal); G93.41 Metabolic encephalopathy; B96.20 Unspecified Escherichia coli [E. coli] as the cause of diseases classified elsewhere; I10 Essential (primary) hypertension; E03.9 Hypothyroidism, unspecified; G30.9 Alzheimer's disease, unspecified; F02.80 Dementia in other diseases classified elsewhere, unspecified severity, without behavioral disturbance, psychotic disturbance, mood disturbance, and anxiety; K21.9 Gastro-esophageal reflux disease without esophagitis; W18.30XA Fall on same level, unspecified, initial encounter; E78.2 Mixed hyperlipidemia; M85.80 Other specified disorders of bone density and structure, unspecified site; I35.0 Nonrheumatic aortic (valve) stenosis; R91.1 Solitary pulmonary nodule; M05.9 Rheumatoid arthritis with rheumatoid factor, unspecified; M48.061 Spinal stenosis, 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 neurogenic claudication; M32.9 Systemic lupus erythematosus, unspecified; E03.8 Other specified hypothyroidism; Z96.642 Presence of left artificial hip joint; Z96.651 Presence of right artificial knee joint
CPT/HCPCS: 36415; 71046; 80048; 80053; 80170; 81001; 82565; 83605; 85025; 86140; 87077; 87086; 87088; 87186; 93005; 96361; 96365; 96367; 97161; 97165; 97530; 97535; 99285; A9270; G0378; J0696; J1580; J7030

== ENCOUNTER 2024-06-04 21:46 | Emergency (ER) | payer MEDICARE, OTHER, SELFPAY ==
--- NOTE | ~2024-06-04 | CT_ITS ---
EXAMINATION: CTA brain carotid DATE: 06/05/2024 01:42 INDICATION: Head injury. TECHNIQUE: Computed tomographic angiography (CTA) of the head was performed without and with 100 mL O mnipaque-350 intravenous contrast. CTA of the neck was performed with intravenous contrast. Automated exposure control and iterative reconstruction technique were employed. The dose-length product was 9 62.28 mGy-cm. Maximum intensity projection and volume rendered 3D-reconstructions were created by the technologist on a separate workstation. COMPARISON: Head CT 06/05/2024 FINDINGS: HEAD CTA: There are scattered areas of low attenuation in the cerebral white matter. There is no intr acranial hemorrhage, acute infarction, or abnormal intracranial mass lesion. The ventricles are fermin l in size. There is scalp soft tissue swelling. There are likely changes of ocular lens replacement s urgeries. There is mucosal thickening in the paranasal sinuses. The mastoid air cells are normal. Lef t vertebral artery is dominant. There is no significant stenosis of basilar artery or the posterior c erebral arteries. The posterior communicating arteries are normal. There is no significant stenosis o f the intracranial internal carotid arteries or anterior or middle cerebral arteries. Anterior commun icating artery is normal. There is no aneurysm. NECK CTA: There is mild scarring at the lung apices. There are no pathologically enlarged lymph nodes . There is no significant stenosis of the vertebral arteries. There is plaque in the proximal interna l carotid arteries. There is 13% stenosis of the proximal right internal carotid artery relative to n ormal distal artery lumen diameter (NASCET criteria). There is 0% stenosis of the proximal left inter nal carotid artery relative to normal distal artery lumen diameter. There is severe cervical spondylo sis. IMPRESSION: 1. Moderate nonspecific cerebral white matter disease, which likely represents chronic small vessel i schemic disease. 2. No aneurysm or significant intracranial arterial stenosis. 3. 13% stenosis of the proximal right internal carotid artery relative to normal distal artery lumen diameter (NASCET criteria). 4. 0% stenosis of the proximal left internal carotid artery relative to normal distal artery lumen di ameter. Reviewed, dictated and finalized at location A. EOLOGIST CLASSICAL IMPRESSION: 1. Moderate nonspecific cerebral white matter disease, which likely represents chronic small vessel ischemic disease. 2. No aneurysm or significant intracranial arterial stenosis. 3. 13% stenosis of the proximal right internal carotid artery relative to fermin l distal artery lumen diameter (NASCET criteria). 4. 0% stenosis of the proximal left internal carotid artery relative to normal distal artery lumen diameter.
--- NOTE | ~2024-06-04 | CT_ITS ---
EXAMINATION: CT brain wo con DATE: 06/05/2024 00:47 INDICATION: Head injury. Fall. TECHNIQUE: Computed tomography (CT) of the head was performed without intravenous contrast. The mA wa s adjusted according to patient size. Iterative reconstruction technique was employed. The dose-lengt h product was 605.33 mGy-cm. COMPARISON: Head CT 11/21/2023 FINDINGS: There are scattered areas of low attenuation in the cerebral white matter. There is no intr acranial hemorrhage, acute infarction, or abnormal intracranial mass lesion. The ventricles are fermin l in size. There are likely changes of ocular lens replacement surgeries. There is mucosal thickening in the paranasal sinuses. The mastoid air cells are normal. There is frontal scalp soft tissue swell ing. IMPRESSION: 1. Stable moderate nonspecific cerebral white matter disease, which likely represents chronic small v essel ischemic disease. Reviewed, dictated and finalized at location A. DINATOR OF ONLINE PROGRAMS IMPRESSION: 1. Stable moderate nonspecific cerebral white matter disease, which likely repr esents chronic small vessel ischemic disease.
--- NOTE | ~2024-06-04 | XR_ITS ---
XR chest 1V portable Ordering provider: Hipolito Allen PA-C History: 88 years Female with . rule out pna . Comparison: May 01, 2024 FINDINGS: MEDIASTINUM: The cardiac silhouette is not enlarged. LUNGS: No pneumothorax. Opacification the left lower lobe area suggestive of atelectasis versus pneum onia. Minimal effusion is not excluded. OTHER: Multiple rib fractures in the left lower thorax. No free air under the diaphragm. IMPRESSION: Left lower lobe atelectasis versus pneumonia with minimal effusion. Reviewed, dictated and finalized at location A. M DIPPER
--- NOTE | ~2024-06-04 | CT_ITS ---
EXAMINATION: CT cervical spine wo con DATE: 06/05/2024 00:47 INDICATION: Head injury. TECHNIQUE: Computed tomography (CT) of the cervical spine was performed without intravenous contrast. Automated exposure control and iterative reconstruction technique were employed. The dose-length pro duct was 118.14 mGy-cm. COMPARISON: CT cervical spine 11/21/2023 FINDINGS: There is 5 degrees levocurvature of cervical spine. There are fractures of the right anteri or and posterior C1 arches with 3 mm distraction at the anterior C1 arch. Vertebral body heights are normal. There is mildly decreased disc height at C4-C5 and severely decreased disc height at C5-C6 an d C6-C7. The following disc levels are specifically discussed: C2-C3: There is no uncovertebral joint osteoarthritis. There is severe left facet joint osteoarthriti s. There is ankylosis of right facet joint with severe hypertrophy. There is mild right neural forami nal stenosis. There is no central canal stenosis. C3-C4: There is mild bilateral uncovertebral joint osteoarthritis. There is severe bilateral facet donato int osteoarthritis. There is mild bilateral neural foraminal stenosis. There is no central canal sten osis. C4-C5: There is severe right and moderate left uncovertebral joint osteoarthritis. There is severe bi lateral facet joint osteoarthritis. There is mild bilateral neural foraminal stenosis. There is mild central canal stenosis. C5-C6: There is severe bilateral uncovertebral joint osteoarthritis. There is severe bilateral facet joint osteoarthritis. There is mild bilateral neural foraminal stenosis. There is mild central canal stenosis. C6-C7: There is severe bilateral uncovertebral joint osteoarthritis. There is severe bilateral facet joint osteoarthritis. There is mild bilateral neural foraminal stenosis. There is mild central canal stenosis. C7-T1: There is no uncovertebral joint osteoarthritis. There is severe bilateral facet joint osteoart hritis. There is mild bilateral neural foraminal stenosis. There is no central canal stenosis. IMPRESSION: 1. Fractures of the right anterior and posterior C1 arches. 2. Severe cervical spondylosis. Reviewed, dictated and finalized at location A. SPRING FORMER
[2024-06-04 21:49] VITALS: BP 138/84; PULSE 91; RESP 15; TEMP 36.6; O2SAT 96
--- NOTE | 2024-06-04 22:00 | PC.NURSE ---
Cervical collar placed prior to arrival by EMS.
--- NOTE | 2024-06-04 22:51 | ECG_ITS ---
Test Date: 2024-06-04 23:39:41 Measurements Intervals [place] Rate: 86 P: -22 TN: 148 QRS: -27 QRSD: 87 T: 149 QT: 377 QTc: 452 Interpretive Statements SINUS RHYTHM BORDERLINE LEFT AXIS DEVIATION [QRS AXIS < -20] ST DEVIATION AND MODERATE T-WAVE ABNORMALITY, CONSIDER LATERAL ISCHEMIA [-0.1+ mV T-WAVE IN I/aVL/V5/V6] Compared to ECG 05/01/2024 09:57:56 no change compared to prior EKG Electronically Signed On 06-05-2024 14:37:11 ASTROBIOLOGIST by Josesito Muhammad M.D.
--- NOTE | 2024-06-04 22:51 | ED_ITS ---
HPI - Fall General Chief Complaint: Fall Stated Complaint: GLF with confusion Time Seen by Provider: 06/04/24 22:35 Source: patient Mode of arrival: ambulatory Limitations: no limitations History of Present Illness HPI Narrative: this is an 88-year-old female who presents to the ED via EMS from [facility] facility for chief complaint of unwitnessed fall. Staff reports to EMS that they heard the patient fall but did not see would happen. She was found wedged between a chair and the wall. Patient is A&O x1 which is her baseline. Patient has no pain complaints but is a poor historian due to dementia. family member is bedside and concern for patient having a lot of cough lately. Related Data Home Medications Medication Instructions Recorded Confirmed aripiprazole 5 mg tablet 2.5 mg PO DAILY 05/01/24 05/13/24 donepezil 10 mg tablet 10 mg PO HS 05/01/24 05/13/24 levothyroxine 88 mcg tablet 88 mcg PO DAILY 05/01/24 05/13/24 (Synthroid) lisinopril 5 mg tablet 5 mg PO DAILY 05/01/24 05/13/24 memantine 10 mg tablet 10 mg PO DAILY 05/01/24 05/13/24 pantoprazole 40 mg tablet,delayed 40 mg PO DAILY 05/01/24 05/13/24 release ropinirole 0.5 mg tablet 0.5 mg PO TID 05/01/24 05/13/24 Allergies Allergy/AdvReac Type Severity Reaction Status Date / Time sulfamethizole Allergy Unknown Unknown Verified 05/13/24 13:10 sulfamethoxazole Allergy Unknown UNKNOWN Verified 05/13/24 13:10 trimethoprim Allergy Unknown Unknown Verified 05/13/24 13:10 Review of Systems Review of Systems: ROS unobtainable: Yes unobtainable due to mental status PMFSH Past Medical History Medical History Aortic stenosis with trileaflet valve Balance problem Benign essential HTN Dementia Dementia arising in the senium and presenium GERD (gastroesophageal reflux disease) Hematoma, subdural, with loss of consciousness, traumatic Hip fracture, left Impaired gait Lupus (systemic lupus erythematosus) Major depressive disorder, recurrent, moderate Memory loss Mixed hyperlipidemia Osteopenia Other specified hypothyroidism Pulmonary nodule, right Rheumatoid arthritis involving multiple sites with positive rheumatoid factor Seasonal allergies Spinal stenosis, 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 neurogenic claudication Status post fracture of left hip Surgical History Surgical History History of arthroplasty of left hip History of total right knee replacement Family History Family History Father Family history of lung cancer Mother Family history of emphysema Other Family history of arthritis Family history of malignant neoplasm Hypertension Social History Social History Social History: Smoking status: Never smoker Second hand tobacco smoke exposure: Yes Alcohol intake: never Alcohol use details: Occasionally Substance use: never Substance use type: does not use Do You Feel Safe in your Home?: Yes Lack of Transportation: No Lack of Food: Never True Current Housing: I Have Housing Concerned About Future Housing: No Difficulty Paying Gas/Electric Bills: No Difficulty Paying for Meds: No Currently Unemployed: No Education: High School Diploma/GED Difficulty w/ Childcare or Family Care: No Living arrangements: with family Occupation/Education: retired Gender identity (if verbalized by the patient): Female Sexual Orientation (if Verbalized by the Patient): Straight or Heterosexual Spiritual care concerns: No Exam Narrative: GENERAL: Well-appearing, well-nourished, and in no acute distress. HEAD: Normocephalic, atraumatic. EYES: PERRLA and EOMI. ENT: Nares clear, no rhinorrhea or epistaxis. Mucous membranes moist. Oropharynx without tonsillar hypertrophy exudate or other lesions. NECK: Supple. No adenopathy or masses. CHEST: No respiratory distress. Clear to auscultation. No wheezes rales or rhonchi HEART: Regular rate and rhythm. No murmur heard. Normal peripheral pulses. ABDOMEN: Soft, nontender, nondistended, normal active bowel sounds. MSK: Normal range of motion. No edema. No pain with log roll of the bilateral hips. SKIN: Abrasion to the bridge of the nose. Warm, dry, no rash. NEURO: Alert and oriented x4. No focal deficits. PSYCH: Normal mood and affect. Course Consultations Consultation #1: Spoke neuro surgery at [facility], Dr. Avery. given that the patient remains neurologically at her baseline and that she is comfort care only, he is recommending that she be kept in the C-collar and follow-up in the clinic outpatient. Date: 06/05/24 Time: 02:13 Vital Signs Vital signs: Vital Signs Temperature 97.9 F 06/04/24 21:49 Pulse Rate 91 06/04/24 21:49 Respiratory Rate 15 06/04/24 21:49 Blood Pressure 138/84 06/04/24 21:49 Pulse Oximetry 96 06/04/24 21:49 Oxygen Delivery Room Air 06/04/24 21:49 Temperature 98.3 F 06/04/24 23:58 Pulse Rate 86 06/04/24 23:42 Respiratory Rate 15 06/04/24 23:42 Blood Pressure 138/78 06/04/24 23:42 Pulse Oximetry 95 06/04/24 23:42 Oxygen Delivery Room Air 06/04/24 21:49 MDM - Fall MDM Narrative Medical decision making narrative: This is an 88-year-old female who presents to the ED for chief complaint of a not a witnessed fall at the [facility]. Vitals are normal. Exam shows patient is at her neurologic mental status baseline. Lab work shows mild leukocytosis of 11.7. CRP elevated at 7.4. Urinalysis positive for UTI. Chest x-ray questionable for pneumonia. EKG shows sinus rhythm with no acute ischemic findings head CT is negative for bleed or acute findings. CT C-spine is remarkable for mildly displaced fractures involving the right side of the anterior and posterior ring of C1. Neuro surgical evaluation and CTA neck recommended. Patient is DNR and comfort measures only. I discussed goals of care with family member who is bedside. They do confirm that she is to be kept comfort care and would like to avoid surgery if possible. I spoke with neuro surgery at [facility] about this. They have no recommendation to transfer for trauma given that she is comfort measures only. They are recommending to keep her in the C-collar and have her follow-up in outpatient clinic for this. I discussed with family this conversation and they are agreeable this. They do feel that the patient be much more comfortable going back to the care center. I also discussed that she has a UTI and potentially a pneumonia going on, however her vitals remained stable. Family member would like to try antibiotics at home for this issue. They will follow-up with neurosurgery clinic and PCP regarding these findings. Patient will be discharged in stable condition with return precautions give family is fully understanding and agreeable with this plan Lab Data 06/04/24 23:35 06/04/24 23:35 Labs: Lab Results 06/04/24 06/04/24 Range/Units 23:29 23:35 WBC 11.7 H (4.5-10.0) K/mm3 RBC 3.85 L (4.2-5.4) M/mm3 Hgb 12.0 (12.0-15.0) g/dL Hct 35.8 L (37.0-47.0) % MCV 93.0 (80-100) fl MCH 31.2 (26-34) pg MCHC 33.5 (32-36) g/dl RDW 13.0 (11.5-14.5) % Plt Count 223 (150-375) k/mm3 MPV 10.9 H (7.4-10.4) fl Immature Gran % (Auto) 2.3 H (0-0.5) % Neut % (Auto) 77.1 H (45.5-73.1) % Lymph % (Auto) 9.3 L (18.3-44.2) % [place] % (Auto) 9.7 H (2.6-8.5) % Eos % (Auto) 1.4 (0-4.4) % Baso % (Auto) 0.2 (0.2-1.2) % Lymph # (Auto) 1.09 (0.9-3.2) K/mm3 [place] # (Auto) 1.1 H (0.1-0.6) K/mm3 Eos # (Auto) 0.2 (0-0.3) K/mm3 Baso # (Auto) 0.0 (0.0-0.1) K/mm3 Abs Immat Gran (auto) 0.27 H (0.00-0.031) K/mm3 Absolute Neuts (auto) 9.0 H (1.3-6.7) K/mm3 Absolute Nucleated RBC 0.000 (0.0-0.012) K/mm3 Nucleated RBC % 0.0 (0.0-0.2) % Sodium 135 L (137-145) mmol/L Potassium 3.7 (3.4-5.0) mmol/L Chloride 104 (98-107) mmol/L Carbon Dioxide 27 (22-30) mmol/L Anion Gap 4 (4-12) mmol/L BUN 17 (7-17) mg/dL Creatinine 0.70 (0.7-1.0) mg/dL Estim Creat Clear Calc 49 ml/min Estimated GFR > 60 (59 - ) Glucose 153 H (65-110) mg/dL Calcium 8.5 (8.4-10.2) mg/dL Total Bilirubin 0.6 (0.2-1.3) mg/dL AST 40 H (14-36) U/L ALT 9 (6-35) U/L Alkaline Phosphatase 74 (38-126) U/L C-Reactive Protein 7.4 H (<1.0) mg/dL Total Protein 7.0 (6.3-8.2) g/dL Albumin 3.6 (3.5-5.1) g/dL Urine Color Yellow (Yellow) Urine Appearance Cloudy H (Clear) Urine pH 5.5 (5.0-9.0) Ur Specific [place] 1.025 (1.001-1.035) Urine Protein 1+ H (Negative) mg/dL Urine Glucose (UA) Negative (Negative) mg/dL Urine Ketones Trace H (Negative) mg/dL Ur Blood (Man) 3+ H (Negative) Urine Nitrate Positive H (Negative) Urine Bilirubin Negative (Negative) Urine Urobilinogen 1.0 (<2.0) mg/dL Add Ur Microanalysis Reviewed Leukocyte Esterase Rfl 2+ H (Negative) GOLDEN/UL Urine RBC 6-10 H (0-2) /hpf Urine WBC 21-50 H (0-3) /hpf Ur Squamous Epith Cells None seen (Few) /hpf Urine Bacteria 4+ H /hpf Urine Casts 3-5 ECG Data EKG #1: ECG completion date: 06/04/24 ECG completion time: 23:39 Prior ECG tracings: available for review Interpretation: Sinus rhythm Rate 86 Normal QRS Normal QTC No acute ischemic findings Discharge Plan Discharge Clinical Impression: C1 cervical fracture, Acute UTI, Abnormal chest x-ray Patient Disposition: Home, Self-Care Condition: Stable Instructions: Antibiotic Form Additional Instructions: exam today does show evidence of cervical vertebrae fracture. Please continue the use of C-collar until otherwise directed by neuro surgery. take antibiotics for UTI and possible pneumonia. use regular Tylenol for pain or fevers. If you have any new or worsening symptoms please return to the ER for further evaluation. [facility] neurosurgery [address] [place] [address] [address] [place] [address] Prescriptions: New amoxicillin-pot clavulanate 875-125 mg tablet 1 tablet PO Q12H Qty: 14 0RF doxycycline hyclate 100 mg capsule 100 mg PO BID 7 Days Qty: 14 0RF No Action duloxetine 30 mg capsule,delayed release(DR/EC) 30 mg PO DAILY Qty: 90 2RF carbidopa-levodopa [Sinemet] 25-100 mg tablet 1 tablet PO TID Qty: 90 4RF donepezil 10 mg tablet 10 mg PO HS Rx Instructions: TAKE 1 TABLET DAILY AT BEDTIME levothyroxine [Synthroid] 88 mcg tablet 88 mcg PO DAILY pantoprazole 40 mg tablet,delayed release (DR/EC) 40 mg PO DAILY lisinopril 5 mg tablet 5 mg PO DAILY aripiprazole 5 mg tablet 2.5 mg PO DAILY memantine 10 mg tablet 10 mg PO DAILY ropinirole 0.5 mg tablet 0.5 mg PO TID folic acid 1 mg tablet 1 mg PO DAILY Qty: 90 4RF methotrexate sodium 2.5 mg tablet 2.5 mg PO 3XW Qty: 36 4RF Rx Instructions: one tablet three times a week Friday, Friday, Friday raloxifene [Evista] 60 mg tablet 60 mg PO DAILY Qty: 90 3RF ropinirole 0.5 mg tablet 0.5 mg PO TID Qty: 90 2RF Follow-up/Referrals: Patricia Lassiter MD [Primary Care Provider] - Time of Disposition: 02:18
[2024-06-04 23:41] LABS: Basophils Percent Auto 0.2 % (0.2-1.2); Eosinophils Absolute Auto 0.2 K/mm3 (0-0.3); Eosinophils Percent Auto 1.4 % (0-4.4); Hematocrit 35.8 % (37.0-47.0); Immature Granulocyte Absolute 0.27 K/mm3 (0.00-0.031); Immature Granulocyte Percent A 2.3 % (0-0.5); Lymphocytes Absolute Auto 1.09 K/mm3 (0.9-3.2); Lymphocytes Percent Auto 9.3 % (18.3-44.2); Mean Corpuscular HGB Conc 33.5 g/dl (32-36); Mean Corpuscular Hemoglobin 31.2 pg (26-34); Mean Platelet Volume 10.9 fl (7.4-10.4); Monocytes Absolute Auto 1.1 K/mm3 (0.1-0.6); Monocytes Percent Auto 9.7 % (2.6-8.5); Neutrophils Percent Auto 77.1 % (45.5-73.1); Platelet Count Result 223 k/mm3 (150-375); Red Blood Count 3.85 M/mm3 (4.2-5.4); White Blood Count 11.7 K/mm3 (4.5-10.0)
[2024-06-04 23:42] VITALS: BP 138/78; PULSE 86; RESP 15; O2SAT 95
[2024-06-04 23:49] LABS: Add Urine Microscopic? YES; Appearance Urine Cloudy (Clear); Bacteria Urine 4+ /hpf; Bilirubin Urine Negative (Negative); Blood Urine 3+ (Negative); Color Urine Yellow (Yellow); Glucose Urine UA Negative (Negative); Ketones Urine Trace mg/dL (Negative); Leukocyte Esterase Ur 2+ LEU/UL (Negative); Need Manual Microscopic Reviewed; Nitrate Urine Positive (Negative); Protein Urine 1+ mg/dL (Negative); Specific Grav Ur 1.025 (1.001-1.035); Squamous Epithelial Cell Urine None Seen /hpf (Few); WBC Urine 21-50 /hpf (0-3); pH Urine 5.5 (5.0-9.0)
[2024-06-04 23:58] VITALS: TEMP 36.8
[2024-06-05 00:01] LABS: Alanine Aminotransferase 9 U/L (6-35); Albumin Level 3.6 g/dL (3.5-5.1); Alkaline Phosphatase 74 U/L (38-126); Anion Gap 4 mmol/L (4-12); Aspartate Amino Transferase 40 U/L (14-36); Bilirubin,Total 0.6 mg/dL (0.2-1.3); Blood Urea Nitrogen 17 mg/dL (7-17); CRP 7.4 mg/dL (<1.0); Calcium 8.5 mg/dL (8.4-10.2); Carbon Dioxide 27 mmol/L (22-30); Chloride 104 mmol/L (98-107); Estimated CRCL calculation 49 ml/min; Estimated Glomerular Filt Rate > 60; Glucose 153 mg/dL (65-110); Potassium 3.7 mmol/L (3.4-5.0); Sodium 135 mmol/L (137-145)
[2024-06-05 05:15] VITALS: BP 130/82; PULSE 79; RESP 16; O2SAT 99
== END 2024-06-05 06:11 ==
PROVIDERS: Emergency Provider Physician Assistant; PCP Family Medicine
DX: S12.000A Unspecified displaced fracture of first cervical vertebra, initial encounter for closed fracture (principal); N39.0 Urinary tract infection, site not specified; R91.8 Other nonspecific abnormal finding of lung field; W19.XXXA Unspecified fall, initial encounter; F03.90 Unspecified dementia, unspecified severity, without behavioral disturbance, psychotic disturbance, mood disturbance, and anxiety; I10 Essential (primary) hypertension; K21.9 Gastro-esophageal reflux disease without esophagitis; M32.9 Systemic lupus erythematosus, unspecified; E78.2 Mixed hyperlipidemia; E03.9 Hypothyroidism, unspecified; M06.9 Rheumatoid arthritis, unspecified
CPT/HCPCS: 36415; 70450; 70496; 70498; 71045; 72125; 80053; 81001; 85025; 86140; 87077; 87086; 87186; 93005; 99284; L0140; Q9967

== ENCOUNTER 2024-07-13 13:08 | Inpatient (IN) | payer MEDICARE, OTHER, SELFPAY ==
--- NOTE | ~2024-07-13 | CT_ITS ---
History: Altered mental status PROCEDURE: CT head without contrast. COMPARISON: Examination is compared with multiple prior studies, performed most recently on 06/05/2024 and dating back to 07/25/2019 TECHNIQUE: Axial imaging of the head performed from the skull base to the vertex without IV contrast. Sagittal a nd coronal reformations obtained. DLP: 605 mGy-cm FINDINGS: The ventricles are enlarged. The dilatation of the ventricles is proportional to the degree of sulcal prominence, not uncommon in the senescent brain. Decreased attenuation is identified within the periventricular white matter, likely secondary to micr ovascular ischemic disease, in a patient of this age. There is no mass, mass effect or midline shift. There is no abnormal extra-axial fluid collection or intracranial hemorrhage. Visualized paranasal sinuses are clear. The mastoid air cells are well aerated. No acute displaced fractures within the overlying cranium. Redemonstration of the right anterior and posterior C1 arch fractures, described on CT examination of the cervical spine dated 06/05/2024. Impression: No acute intracranial hemorrhage or suspicious mass effect. Reviewed, dictated and finalized at location A. SE GRADER Impression: No acute intracranial hemorrhage or suspicious mass effect.
--- NOTE | ~2024-07-13 | XR_ITS ---
CHEST RADIOGRAPH CLINICAL HISTORY: ams . COMPARISON: 06/04/2024 TECHNIQUE: Single portable view of the chest. FINDINGS The cardiomediastinal silhouette is unremarkable. Blunting of the left costophrenic sulcus suggesting a small left-sided pleural effusion. The remainder the lungs are clear. Redemonstration of multiple left lateral rib fractures. IMPRESSION: Small left-sided pleural effusion without focal infiltrate Reviewed, dictated and finalized at location A. 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
[2024-07-13 13:15] VITALS: BP 114/66; PULSE 77; RESP 15; TEMP 36.4; O2SAT 97
--- NOTE | 2024-07-13 13:15 | ECG_ITS ---
Test Date: 2024-07-13 13:32:59 Measurements Intervals [place] Rate: 77 P: 11 UT: 135 QRS: -42 QRSD: 93 T: 229 QT: 490 QTc: 555 Interpretive Statements SINUS RHYTHM LEFT AXIS DEVIATION [QRS AXIS < -30] MARKED T-WAVE ABNORMALITY, CONSIDER ANTEROLATERAL ISCHEMIA [-0.5+ mV T-WAVE IN I/aVL/V3-V6] MODERATE T-WAVE ABNORMALITY, CONSIDER INFERIOR ISCHEMIA [-0.1+ mV T-WAVE IN II/aVF] Compared to ECG 06/04/2024 23:39:41 T WAVE ABNORMALITY NOW PRESENT Electronically Signed On 07-13-2024 15:36:21 LEASE PICKER by Bradley Lucas M.D.
[2024-07-13 13:38] LABS: Basophils Percent Auto 0.3 % (0.2-1.2); Eosinophils Absolute Auto 0.1 K/mm3 (0-0.3); Hematocrit 36.8 % (37.0-47.0); Hemoglobin 11.7 g/dL (12.0-15.0); Immature Granulocyte Absolute 0.04 K/mm3 (0.00-0.031); Immature Granulocyte Percent A 0.7 % (0-0.5); Lymphocytes Absolute Auto 1.77 K/mm3 (0.9-3.2); Lymphocytes Percent Auto 29.7 % (18.3-44.2); Mean Corpuscular HGB Conc 31.8 g/dl (32-36); Mean Corpuscular Hemoglobin 30.2 pg (26-34); Mean Corpuscular Volume 94.8 fl (80-100); Mean Platelet Volume 11.6 fl (7.4-10.4); Monocytes Absolute Auto 0.9 K/mm3 (0.1-0.6); Monocytes Percent Auto 14.9 % (2.6-8.5); Neutrophils Absolute Auto 3.2 K/mm3 (1.3-6.7); Neutrophils Percent Auto 53.4 % (45.5-73.1); Platelet Count Result 199 k/mm3 (150-375); Red Blood Count 3.88 M/mm3 (4.2-5.4); Red Cell Distribution Width 13.7 % (11.5-14.5)
[2024-07-13 13:55] LABS: Add Urine Microscopic? YES; Appearance Urine Cloudy (Clear); Bacteria Urine 4+ /hpf; Bilirubin Urine Negative (Negative); Blood Urine 1+ (Negative); Color Urine Yellow (Yellow); Glucose Urine UA Negative (Negative); Ketones Urine Trace mg/dL (Negative); Leukocyte Esterase Ur 2+ LEU/UL (Negative); Nitrate Urine Positive (Negative); Protein Urine Trace mg/dL (Negative); RBC Urine 0-2 /hpf (0-2); Specific Grav Ur 1.019 (1.001-1.035); Squamous Epithelial Cell Urine None Seen /hpf (Few); WBC Urine >100 /hpf (0-3); pH Urine 5.5 (5.0-9.0)
[2024-07-13 13:58] LABS: Alanine Aminotransferase 7 U/L (6-35); Albumin Level 3.3 g/dL (3.5-5.1); Alkaline Phosphatase 56 U/L (38-126); Anion Gap 4 mmol/L (4-12); Aspartate Amino Transferase 24 U/L (14-36); Bilirubin,Total 0.5 mg/dL (0.2-1.3); Blood Urea Nitrogen 14 mg/dL (7-17); Calcium 8.8 mg/dL (8.4-10.2); Carbon Dioxide 30 mmol/L (22-30); Chloride 105 mmol/L (98-107); Estimated CRCL calculation 54 ml/min; Estimated Glomerular Filt Rate > 60; Glucose 97 mg/dL (65-110); Potassium 3.9 mmol/L (3.4-5.0); Sodium 139 mmol/L (137-145)
[2024-07-13 14:03] LABS: Partial Thromboplastin Time 27.7 Seconds (22.3-36.8)
[2024-07-13 14:28] VITALS: PULSE 72
[2024-07-13 15:01] VITALS: BP 108/66; PULSE 76; RESP 12; O2SAT 98
--- NOTE | 2024-07-13 16:13 | ED.AMS ---
HPI - Altered Mental Status General Chief Complaint: Altered Mental Status Stated Complaint: AMS Time Seen by Provider: 07/13/24 15:47 Source: family () Mode of arrival: EMS Limitations: clinical condition and dementia History of Present Illness HPI narrative: Patient presents with concern for altered mental status. Resides at [facility]. History of dementia. Reportedly A&O x4 at baseline and x2 today. states she is not A&O x4 at baseline and hasn't known the year for at least 2 years now. She fell and broke her neck approximately 1 month ago. visits her 2xday. States she alternates between good and bad times where she is at times more alert and responsive and at other times less so. HE is concerned she has a UTI given this happens not infrequently. Had previously been at [facility] where he felt she received good care. [facility] has more staff around the clock but he believes she is receiving less personalized care. Wears a neck brace but will hopefully be cleared by NSGY at [facility] in approximately 2 weeks at which time is hoping she might be accepted back at [facility]. Patient's last known well was at 9am but then this afternooon noted to be more lethargic around 45min [employer]. Patient has no complaints. Explicitly denies any pain when asked including no headache, chest pain, abdominal pain, extremity pain, or shortness of breath. Last night she was tired after doing physical therapy. Hasn't had any water since breakfast. Related Data Home Medications ?Medication ?Instructions ?Recorded ?Confirmed ?Last Taken ?Type aripiprazole 5 mg tablet 2.5 mg PO DAILY 05/01/24 07/13/24 Unknown History donepezil 10 mg tablet 10 mg PO HS 05/01/24 07/13/24 Unknown History levothyroxine 88 mcg tablet 88 mcg PO DAILY 05/01/24 07/13/24 Unknown History (Synthroid) lisinopril 5 mg tablet 5 mg PO DAILY 05/01/24 07/13/24 Unknown History memantine 10 mg tablet 10 mg PO DAILY 05/01/24 07/13/24 Unknown History pantoprazole 40 mg tablet,delayed 40 mg PO DAILY 05/01/24 07/13/24 Unknown History release acetaminophen 325 mg capsule 650 mg PO BID 07/13/24 07/13/24 Unknown History bisacodyl 10 mg rectal suppository 10 mg RECTAL DAILY PRN constipation 07/13/24 07/13/24 Unknown History (Laxative (bisacodyl)) magnesium hydroxide 400 mg/5 mL 30 ml PO DAILY PRN constipation 07/13/24 07/13/24 Unknown History oral suspension Allergies Allergy/AdvReac Type Severity Reaction Status Date / Time sulfamethizole Allergy Unknown Unknown Verified 07/06/24 13:02 sulfamethoxazole Allergy Unknown UNKNOWN Verified 07/06/24 13:02 trimethoprim Allergy Unknown Unknown Verified 07/06/24 13:02 [facility] Past Medical History Medical History (Updated 07/14/24 @ 12:02 by Chari Crowell MD) Nondisp posterior arch fracture of C1 vertebra with routine healing Fracture of anterior arch of C1 Chronic kidney disease, unspecified Age-related osteoporosis without current pathological fracture Lupus (systemic lupus erythematosus) GERD (gastroesophageal reflux disease) Major depressive disorder, recurrent, moderate Benign essential HTN Dementia arising in the senium and presenium Balance problem Hematoma, subdural, with loss of consciousness, traumatic Dementia Hip fracture, left Aortic stenosis with trileaflet valve Impaired gait Memory loss Mixed hyperlipidemia Osteopenia Other specified hypothyroidism Pulmonary nodule, right Rheumatoid arthritis involving multiple sites with positive rheumatoid factor Seasonal allergies Spinal stenosis, 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 neurogenic claudication Status post fracture of left hip Surgical History Surgical History History of total right knee replacement History of arthroplasty of left hip Family History Family History Father Family history of lung cancer Mother Family history of emphysema Other Family history of arthritis Family history of malignant neoplasm Hypertension Social History Social History (Updated 07/13/24 @ 17:28 by Chari Crowell MD) Social History: Spouse Emiliano Loaiza Advance Directive DNR per PR documentation including POLST signed 07/29/23 Smoking status: Never smoker Second hand tobacco smoke exposure: Yes Alcohol intake: never Alcohol use details: Occasionally Substance use: never Substance use type: does not use Do You Feel Safe in your Home?: Yes Lack of Transportation: No Lack of Food: Never True Current Housing: I Have Housing Concerned About Future Housing: No Difficulty Paying Gas/Electric Bills: No Difficulty Paying for Meds: No Currently Unemployed: No Education: High School Diploma/GED Difficulty w/ Childcare or Family Care: No Living arrangements: detention Additional living arrangements comments: [facility] [place] since 06/11/24 Occupation/Education: retired Gender identity (if verbalized by the patient): Female Sexual Orientation (if Verbalized by the Patient): Straight or Heterosexual Spiritual care concerns: No Exam Narrative: GENERAL: Well-appearing, well-nourished, and in no acute distress. HEAD: Normocephalic, atraumatic. EYES: Non injected, non icteric ENT: Nares clear, no rhinorrhea or epistaxis. Dry mucous membranes NECK: Neck in soft C collar CHEST: Speaking in full sentences. No respiratory distress. Lungs clear to auscultation bilaterally. HEART: Regular rate and rhythm. Holosystolic murmur (chronic per ) ABDOMEN: Soft, nondistended. Non tender to palpation. No rigidity/guarding. Not peritoneal. EXTREMITIES: Palpated and no tenderness or obvious deformity. Pelvis stable to compression. No lower extremity edema. SKIN: Warm, dry, no rash. NEURO: No focal deficits. Alert and oriented to self. Does not know where she is at first but when given a list of options, she can recognize that we are in a hospital. States year is 2004. PSYCH: Normal mood and affect. Course Vital Signs Vital signs: Vital Signs Temperature 97.6 F 07/13/24 13:15 Pulse Rate 77 07/13/24 13:15 Respiratory Rate 15 07/13/24 13:15 Blood Pressure 114/66 07/13/24 13:15 Pulse Oximetry 97 07/13/24 13:15 Oxygen Delivery Room Air 07/13/24 13:15 Temperature 97.8 F 07/14/24 05:05 Pulse Rate 74 07/14/24 05:05 Respiratory Rate 17 07/14/24 05:05 Blood Pressure 119/60 07/14/24 08:45 Pulse Oximetry 94 07/14/24 05:05 Oxygen Delivery Room Air 07/14/24 08:00 MDM - Altered Mental Status MDM Narrative Medical decision making narrative: Patient presents with concern for altered mental status. Reportedly A&O x4 at baseline but patient's states this is not true and that she hasn't known the year for several years. In the emergency department they are afebrile with vital signs within normal limits. Patient does appear dry on exam with dry mucous membranes. She has some trace ketones. Will give IV fluids in addition to first dose of antibiotic for UTI. Previous urine culture from 06/07/2024 is reviewed which showed E coli that was sensitive to the following: Amoxicillin/chlamydia late, Ceptaz deemed, cefepime, ceftriaxone, imipenem, meropenem, nitrofurantoin, piperacillin/tazobactam, and Bactrim. Patient has allergies to sulfamethoxazole and trimethoprim. Will give ceftriaxone. Patient has new T-wave inversions on her EKG. Troponin ordered. Because they also appear somewhat deep, and because she is altered, head CT also ordered. She has a normocytic anemia that otherwise appears stable and in line with previous. Patient not on anticoagulation per review of nursing documentation. She does have a left-sided pleural effusion noted on imaging however not tachycardic or hypoxic on room air. Recent pneumonia per . Initial plan was to discharge with Rx for cephalosporin. However, concerned about her returning to facility tonight given her altered mental status and age and comorbid conditions including because previous infection (PNA and UTI) caused her to be so altered/weak that she fell and fractured C spine a month ago. Confirmed code status DNR. Discussed with hospitalist MARIE Aviles. Differential Diagnosis Differential diagnosis: Likely altered mental status, delirium, dementia, hypoglycemia, hyponatremia, subarachnoid hemorrhage, sepsis and other (UTI, PNA) Lab Data Attestation: I reviewed the patient's lab results. Lab results narrative: Hypoalbuminemia 07/13/24 13:27 07/13/24 13:27 Labs: Lab Results 07/13/24 07/13/24 07/13/24 Range/Units 13:27 13:42 17:08 WBC 6.0 (4.5-10.0) K/mm3 RBC 3.88 L (4.2-5.4) M/mm3 Hgb 11.7 L (12.0-15.0) g/dL Hct 36.8 L (37.0-47.0) % MCV 94.8 (80-100) fl MCH 30.2 (26-34) pg MCHC 31.8 L (32-36) g/dl RDW 13.7 (11.5-14.5) % Plt Count 199 (150-375) k/mm3 MPV 11.6 H (7.4-10.4) fl Immature Gran % (Auto) 0.7 H (0-0.5) % Neut % (Auto) 53.4 (45.5-73.1) % Lymph % (Auto) 29.7 (18.3-44.2) % Daniels % (Auto) 14.9 H (2.6-8.5) % Eos % (Auto) 1.0 (0-4.4) % Baso % (Auto) 0.3 (0.2-1.2) % Lymph # (Auto) 1.77 (0.9-3.2) K/mm3 Daniels # (Auto) 0.9 H (0.1-0.6) K/mm3 Eos # (Auto) 0.1 (0-0.3) K/mm3 Baso # (Auto) 0.0 (0.0-0.1) K/mm3 Abs Immat Gran (auto) 0.04 H (0.00-0.031) K/mm3 Absolute Neuts (auto) 3.2 (1.3-6.7) K/mm3 Absolute Nucleated RBC 0.000 (0.0-0.012) K/mm3 Nucleated RBC % 0.0 (0.0-0.2) % PT 14.0 (11.1-14.7) Seconds INR 1.0 APTT 27.7 (22.3-36.8) Seconds Sodium 139 (137-145) mmol/L Potassium 3.9 (3.4-5.0) mmol/L Chloride 105 (98-107) mmol/L Carbon Dioxide 30 (22-30) mmol/L Anion Gap 4 (4-12) mmol/L BUN 14 (7-17) mg/dL Creatinine 0.66 L (0.7-1.0) mg/dL Estim Creat Clear Calc 54 ml/min Estimated GFR > 60 (59 - ) Glucose 97 (65-110) mg/dL Calcium 8.8 (8.4-10.2) mg/dL Total Bilirubin 0.5 (0.2-1.3) mg/dL AST 24 (14-36) U/L ALT 7 (6-35) U/L Alkaline Phosphatase 56 (38-126) U/L Troponin I 0.023 (0.000-0.034) ng/mL Total Protein 6.0 L (6.3-8.2) g/dL Albumin 3.3 L (3.5-5.1) g/dL Urine Color Yellow (Yellow) Urine Appearance Cloudy H (Clear) Urine pH 5.5 (5.0-9.0) Ur Specific Lititz 1.019 (1.001-1.035) Urine Protein Trace (Negative) mg/dL Urine Glucose (UA) Negative (Negative) mg/dL Urine Ketones Trace H (Negative) mg/dL Ur Blood (Man) 1+ H (Negative) Urine Nitrate Positive H (Negative) Urine Bilirubin Negative (Negative) Urine Urobilinogen 1.0 (<2.0) mg/dL Leukocyte Esterase Rfl 2+ H (Negative) GODLEN/UL Urine RBC 0-2 (0-2) /hpf Urine WBC >100 H (0-3) /hpf Ur Squamous Epith Cells None seen (Few) /hpf Urine Bacteria 4+ /hpf Urine Casts 3-5 Influenza A (RT-PCR) (Negative) Influenza B (RT-PCR) (Negative) RSV (RT-PCR) (Negative) SARS-CoV-2 RNA (RT-PCR) (Negative) 07/13/24 Range/Units 17:12 WBC (4.5-10.0) K/mm3 RBC (4.2-5.4) M/mm3 Hgb (12.0-15.0) g/dL Hct (37.0-47.0) % MCV (80-100) fl MCH (26-34) pg MCHC (32-36) g/dl RDW (11.5-14.5) % Plt Count (150-375) k/mm3 MPV (7.4-10.4) fl Immature Gran % (Auto) (0-0.5) % Neut % (Auto) (45.5-73.1) % Lymph % (Auto) (18.3-44.2) % Daniels % (Auto) (2.6-8.5) % Eos % (Auto) (0-4.4) % Baso % (Auto) (0.2-1.2) % Lymph # (Auto) (0.9-3.2) K/mm3 Daniels # (Auto) (0.1-0.6) K/mm3 Eos # (Auto) (0-0.3) K/mm3 Baso # (Auto) (0.0-0.1) K/mm3 Abs Immat Gran (auto) (0.00-0.031) K/mm3 Absolute Neuts (auto) (1.3-6.7) K/mm3 Absolute Nucleated RBC (0.0-0.012) K/mm3 Nucleated RBC % (0.0-0.2) % PT (11.1-14.7) Seconds INR APTT (22.3-36.8) Seconds Sodium (137-145) mmol/L Potassium (3.4-5.0) mmol/L Chloride (98-107) mmol/L Carbon Dioxide (22-30) mmol/L Anion Gap (4-12) mmol/L BUN (7-17) mg/dL Creatinine (0.7-1.0) mg/dL Estim Creat Clear Calc ml/min Estimated GFR (59 - ) Glucose (65-110) mg/dL Calcium (8.4-10.2) mg/dL Total Bilirubin (0.2-1.3) mg/dL AST (14-36) U/L ALT (6-35) U/L Alkaline Phosphatase (38-126) U/L Troponin I (0.000-0.034) ng/mL Total Protein (6.3-8.2) g/dL Albumin (3.5-5.1) g/dL Urine Color (Yellow) Urine Appearance (Clear) Urine pH (5.0-9.0) Ur Specific Lititz (1.001-1.035) Urine Protein (Negative) mg/dL Urine Glucose (UA) (Negative) mg/dL Urine Ketones (Negative) mg/dL Ur Blood (Man) (Negative) Urine Nitrate (Negative) Urine Bilirubin (Negative) Urine Urobilinogen (<2.0) mg/dL Leukocyte Esterase Rfl (Negative) GOLDEN/UL Urine RBC (0-2) /hpf Urine WBC (0-3) /hpf Ur Squamous Epith Cells (Few) /hpf Urine Bacteria /hpf Urine Casts Influenza A (RT-PCR) Negative (Negative) Influenza B (RT-PCR) Negative (Negative) RSV (RT-PCR) Negative (Negative) SARS-CoV-2 RNA (RT-PCR) Negative (Negative) Imaging Data Radiologist's impression: Impressions Chest X-Ray 07/13/24 17:39 IMPRESSION: Small left-sided pleural effusion without focal infiltrate Head CT 07/13/24 18:02 Impression: No acute intracranial hemorrhage or suspicious mass effect. ECG Data EKG #1: Attestation: I personally reviewed and interpreted this ECG as follows: ECG completion date: 07/13/24 ECG completion time: 13:32 Prior ECG tracings: available for review (06/04/2024) Interpretation: Normal sinus rhythm at a rate of 77 beats per minute. HI interval 135. QRS 93. QT/QTC 490/521. Left axis deviation given positive QRS in 1 and negative in 3 and AVF as well as 2. Significant artifact/baseline limits full interpretation. There are deep T-wave inversions in V2. Patient also has T-wave inversions in V4, V5, and V6. These do appear new compared to previous EKG. Discharge Plan Discharge Clinical Impression: Acute alteration in mental status, Hypoalbuminemia, UTI (urinary tract infection), Normocytic anemia, Pleural effusion on left Patient Disposition: Still a Patient Condition: Stable
[2024-07-13 17:39] LABS: Troponin I 0.023 ng/mL (0.000-0.034)
[2024-07-13 17:55] LABS: Influenza A QL RT-PCR Negative (Negative); Influenza B QL RT-PCR Negative (Negative); RSV RNA, RT-PCR Negative (Negative); SARS-CoV-2 RNA PCR Negative (Negative)
[2024-07-13 18:20] VITALS: BP 108/69; PULSE 72; RESP 15; O2SAT 98
[2024-07-13] MEDS: SODIUM CHLORIDE 0.9% IV 1,000 ML 999 ML IV CONT (18:25)
[2024-07-13 19:41] VITALS: BP 103/73; PULSE 75; RESP 14; O2SAT 95
[2024-07-13 19:53] VITALS: BMI 23.6
[2024-07-13 20:00] VITALS: BP 102/66; PULSE 72; RESP 16; TEMP 36.6; O2SAT 98; BMI 26.7
--- NOTE | 2024-07-13 20:09 | ADMGEN ---
This patient, Hortencia Loaiza, was admitted to 2 Medical Room 240-. Patient/family oriented to hospital policies and general routines including ID bracelet, bed and alarms, visiting hours, pain management, procedures, bathroom and other care routines, personal items, smoking policy, room service/diet, and visiting hours. Information on how to activate the Rapid Response Team has been discussed. Patient/Family are encouraged to report perceived risks to care and to ask questions if they do not understand what they are told or what they should do.
--- NOTE | 2024-07-13 21:27 | PM.IMHP ---
H&P: HPI History of Present Illness Date/Time: 07/13/24 21:27 Chief Complaint: Altered mental status Narrative: This is an 88-year-old female with past medical history significant for Parkinson's disease, dementia, rheumatoid arthritis, chronic kidney disease, SLE, GERD, aortic stenosis spinal stenosis. Patient was brought to emergency room for evaluation due to altered mental status. At the time of my visit patient is laying in bed obtunded unable to participate in history taking. Most of the history has been obtained upon reviewing medical records. I have personally reviewed all records lab results and imaging results. Patient found to have a urine analysis is abnormal with numerous WBCs present more than 100 per high-power field. Patient has been admitted for further evaluation management and treatment. CHEST RADIOGRAPH CLINICAL HISTORY: ams . COMPARISON: 06/04/2024 TECHNIQUE: Single portable view of the chest. FINDINGS The cardiomediastinal silhouette is unremarkable. Blunting of the left costophrenic sulcus suggesting a small left-sided pleural effusion. The remainder the lungs are clear. Redemonstration of multiple left lateral rib fractures. IMPRESSION: Small left-sided pleural effusion without focal infiltrate PROCEDURE: CT head without contrast. COMPARISON: Examination is compared with multiple prior studies, performed most recently on 06/05/2024 and dating back to 07/25/2019 TECHNIQUE: Axial imaging of the head performed from the skull base to the vertex without IV contrast. Sagittal and coronal reformations obtained. DLP: 605 mGy-cm FINDINGS: The ventricles are enlarged. The dilatation of the ventricles is proportional to the degree of sulcal prominence, not uncommon in the senescent brain. Decreased attenuation is identified within the periventricular white matter, likely secondary to microvascular ischemic disease, in a patient of this age. There is no mass, mass effect or midline shift. There is no abnormal extra-axial fluid collection or intracranial hemorrhage. Visualized paranasal sinuses are clear. The mastoid air cells are well aerated. No acute displaced fractures within the overlying cranium. Redemonstration of the right anterior and posterior C1 arch fractures, described on CT examination of the cervical spine dated 06/05/2024. Impression: No acute intracranial hemorrhage or suspicious mass effect. Review of Systems Review of Systems: ROS unobtainable: Yes unobtainable due to mental status (Obtundation/lethargy) PMFSH Past Medical History Medical History Chronic kidney disease, unspecified Age-related osteoporosis without current pathological fracture Lupus (systemic lupus erythematosus) GERD (gastroesophageal reflux disease) Major depressive disorder, recurrent, moderate Benign essential HTN Dementia arising in the senium and presenium Balance problem Hematoma, subdural, with loss of consciousness, traumatic Dementia Hip fracture, left Aortic stenosis with trileaflet valve Impaired gait Memory loss Mixed hyperlipidemia Osteopenia Other specified hypothyroidism Pulmonary nodule, right Rheumatoid arthritis involving multiple sites with positive rheumatoid factor Seasonal allergies Spinal stenosis, 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 neurogenic claudication Status post fracture of left hip Surgical History Surgical History History of total right knee replacement History of arthroplasty of left hip Family History Family History Father Family history of lung cancer Mother Family history of emphysema Other Family history of arthritis Family history of malignant neoplasm Hypertension Social History Social History (Updated 07/13/24 @ 17:28 by Chari Crowell MD) Social History: Spouse Emiliano Loaiza Advance Directive DNR per [place] documentation including POLST signed 07/29/23 Smoking status: Never smoker Second hand tobacco smoke exposure: Yes Alcohol intake: never Alcohol use details: Occasionally Substance use: never Substance use type: does not use Do You Feel Safe in your Home?: Yes Lack of Transportation: No Lack of Food: Never True Current Housing: I Have Housing Concerned About Future Housing: No Difficulty Paying Gas/Electric Bills: No Difficulty Paying for Meds: No Currently Unemployed: No Education: High School Diploma/GED Difficulty w/ Childcare or Family Care: No Living arrangements: care home Additional living arrangements comments: [facility] since 06/11/24 Occupation/Education: retired Gender identity (if verbalized by the patient): Female Sexual Orientation (if Verbalized by the Patient): Straight or Heterosexual Spiritual care concerns: No Meds Home Medications and Allergies Home Medications ?Medication ?Instructions ?Recorded ?Confirmed ?Type methotrexate sodium 2.5 mg tablet 2.5 mg PO 3XW #36 tabs 11/04/23 07/13/24 Rx duloxetine 30 mg capsule,delayed 30 mg PO DAILY #90 caps 01/23/24 07/13/24 Rx release raloxifene 60 mg tablet (Evista) 60 mg PO DAILY #90 tabs 03/13/24 07/13/24 Rx aripiprazole 5 mg tablet 2.5 mg PO DAILY 05/01/24 07/13/24 History donepezil 10 mg tablet 10 mg PO HS 05/01/24 07/13/24 History levothyroxine 88 mcg tablet 88 mcg PO DAILY 05/01/24 07/13/24 History (Synthroid) lisinopril 5 mg tablet 5 mg PO DAILY 05/01/24 07/13/24 History memantine 10 mg tablet 10 mg PO DAILY 05/01/24 07/13/24 History pantoprazole 40 mg tablet,delayed 40 mg PO DAILY 05/01/24 07/13/24 History release carbidopa 25 mg-levodopa 100 mg 1 tablet PO TID #90 tabs 05/13/24 07/13/24 Rx tablet (Sinemet) folic acid 1 mg tablet See Rx Instructions .Route 06/07/24 07/13/24 Rx .COMPLEX #90 tabs ropinirole 0.5 mg tablet 0.5 mg PO TID #270 tabs 07/02/24 07/13/24 Rx acetaminophen 325 mg capsule 650 mg PO BID 07/13/24 07/13/24 History bisacodyl 10 mg rectal suppository 10 mg RECTAL DAILY PRN constipation 07/13/24 07/13/24 History (Laxative (bisacodyl)) magnesium hydroxide 400 mg/5 mL 30 ml PO DAILY PRN constipation 07/13/24 07/13/24 History oral suspension Allergies Allergy/AdvReac Type Severity Reaction Status Date / Time sulfamethizole Allergy Unknown Unknown Verified 07/06/24 13:02 sulfamethoxazole Allergy Unknown UNKNOWN Verified 07/06/24 13:02 trimethoprim Allergy Unknown Unknown Verified 07/06/24 13:02 Vital Signs Vital Signs - 24 hr 07/13/24 13:15 07/13/24 14:28 07/13/24 15:01 Temperature 97.6 F Pulse Rate 77 72 76 Respiratory Rate 15 12 Blood Pressure 114/66 108/66 Pulse Oximetry 97 98 Oxygen Delivery Room Air 07/13/24 18:20 07/13/24 19:41 07/13/24 20:00 Temperature Pulse Rate 72 75 Respiratory Rate 15 14 Blood Pressure 108/69 103/73 Pulse Oximetry 98 95 Oxygen Delivery Room Air 07/13/24 20:00 Temperature 97.8 F Pulse Rate 72 Respiratory Rate 16 Blood Pressure 102/66 Pulse Oximetry 98 Oxygen Delivery Exam Narrative: Laying in bed Const: General: comfortable, no acute distress, well developed, ill appearing acutely, lethargic, patient obtunded and average body habitus Nutritional Appearance: average body habitus Orientation/consciousness: patient obtunded and lethargic HENMT: Head: normal to inspection, normocephalic and atraumatic Ears: hearing grossly normal bilaterally Face/Nose/Sinus: normal facial exam Face and sinus: normal facial exam Other: Neck collar on Eyes: General: appearance normal, both eyes and all related structures Pupils: Equal, round and reactive pupils present EOM: EOMs intact bilaterally Neck: Neck: full ROM, no lymphadenopathy and no JVD Thyroid: thyroid normal Lymphatic: no lymphadenopathy noted Resp: Effort & Inspection: normal respiratory effort and able to speak in complete sentences Auscultation: clear to auscultation bilaterally Cardio: Jugular venous distension: no JVD Rate: regular rate Rhythm: regular rhythm Heart sounds: S1 normal heart sound present and S2 normal heart sound present GI: Inspection: normal to inspection GI Palp: Yes Soft to palpation and Yes No hepatosplenomegaly present : General: Yes deferred Skin: Rashes: no rashes Wounds: no wounds Neuro: General: CN's II-XI intact bilaterally and patient obtunded Cranial nerves: Yes CN's II-XII intact bilaterally and Yes Equal, round and reactive pupils present Cognition (Neuro): abnormal cognition (Lethargy /obtundation) Gait exam (Neuro): Unable to assess gait Extrem: General: normal to inspection, full ROM, no joint enlargement and no pedal edema H&P: Results Labs Labs: Short CBC 07/13/24 Range/Units 13:27 WBC 6.0 (4.5-10.0) K/mm3 Hgb 11.7 L (12.0-15.0) g/dL Hct 36.8 L (37.0-47.0) % Plt Count 199 (150-375) k/mm3 BMP 07/13/24 13:27 Sodium 139 Potassium 3.9 Chloride 105 Carbon Dioxide 30 BUN 14 Creatinine 0.66 L Glucose 97 Calcium 8.8 Cardiac Enzymes 07/13/24 Range/Units 17:08 Troponin I 0.023 (0.000-0.034) ng/mL Liver Function 07/13/24 Range/Units 13:27 Total Bilirubin 0.5 (0.2-1.3) mg/dL AST 24 (14-36) U/L ALT 7 (6-35) U/L Alkaline Phosphatase 56 (38-126) U/L Albumin 3.3 L (3.5-5.1) g/dL Urine 07/13/24 Range/Units 13:42 Urine Color Yellow (Yellow) Urine Appearance Cloudy H (Clear) Urine pH 5.5 (5.0-9.0) Ur Specific Calcium 1.019 (1.001-1.035) Urine Protein Trace (Negative) mg/dL Urine Glucose (UA) Negative (Negative) mg/dL Assessment and Plan Assessment and plan (1) UTI (urinary tract infection): Code(s): N39.0 - Urinary tract infection, site not specified Status: Acute Assessment and Plan: Admit to regular medical floor Patient started on Rocephin (2) Acute alteration in mental status: Code(s): R41.82 - Altered mental status, unspecified Status: Acute Assessment and Plan: Likely secondary to toxic metabolic encephalopathy secondary to infection in the urine (3) Parkinson's disease with dyskinesia: Qualifiers: Fluctuating manifestations: with fluctuating manifestations Qualified Code(s): G20.B2 - Parkinson's disease with dyskinesia, with fluctuations Code(s): G20.B1 - Parkinson's disease with dyskinesia, without mention of fluctuations Status: Acute Assessment and Plan: On carbidopa levodopa (4) Aortic stenosis: Qualifiers: Cardiac valve disease etiology: nonrheumatic Qualified Code(s): I35.0 - Nonrheumatic aortic (valve) stenosis Code(s): I35.0 - Nonrheumatic aortic (valve) stenosis Status: Acute Assessment and Plan: Continue to monitor (5) Alzheimer's dementia without behavioral disturbance: Code(s): G30.9 - Alzheimer's disease, unspecified; F02.80 - Dementia in other diseases classified elsewhere, unspecified severity, without behavioral disturbance, psychotic disturbance, mood disturbance, and anxiety Status: Acute Assessment and Plan: Resume home meds as need Patient is on donepezil and memantine (6) Lupus (systemic lupus erythematosus): Qualifiers: Systemic lupus erythematosus type: unspecified Systemic lupus erythematosus organ involvement: tubulo-interstitial nephropathy Qualified Code(s): M32.15 - 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 Code(s): M32.9 - Systemic lupus erythematosus, unspecified Status: Acute Assessment and Plan: On methotrexate (7) Weakness: Code(s): R53.1 - Weakness Status: Acute Assessment and Plan: PT OT when clinically able to participate (8) Rheumatoid arthritis involving multiple sites with positive rheumatoid factor: Code(s): M05.79 - Rheumatoid arthritis with rheumatoid factor of multiple sites without organ or systems involvement Status: Acute Assessment and Plan: Patient is on methotrexate (9) Abnormality of gait: Code(s): R26.9 - Unspecified abnormalities of gait and mobility Status: Acute Assessment and Plan: Fall precautions (10) Benign essential HTN: Code(s): I10 - Essential (primary) hypertension Status: Acute Assessment and Plan: Resume home meds as needed (11) Hypothyroidism (acquired): Code(s): E03.9 - Hypothyroidism, unspecified Status: Acute Assessment and Plan: Resume home meds (12) GERD (gastroesophageal reflux disease): Code(s): K21.9 - Gastro-esophageal reflux disease without esophagitis Status: Acute Assessment and Plan: PPI Hospitalist [facility] [place] Advance Care Plan I have confirmed that the patient's Advanced Care Plan is present, code status is documented, or surrogate decision maker is listed in patient medical record.: Yes Medication Reconciliation I have utilized all available resources to obtain, update and review the patients current medications (includes all prescriptions, OTC, herbals, cannabis, and nutritional supplements).: Yes
[2024-07-14 05:05] VITALS: BP 132/64; PULSE 74; RESP 17; TEMP 36.6; O2SAT 94
[2024-07-14] MEDS: LEVOTHYROXINE SODIUM 88 MCG TABLET PO (05:47)
--- NOTE | 2024-07-14 08:18 | PM.IMPN ---
Progress Note: A&P Assessment and Plan (1) UTI (urinary tract infection): Code(s): N39.0 - Urinary tract infection, site not specified Status: Acute Assessment and Plan: IV Rocephin- will continue IV for now follow UA/Culture wbc improved (2) Acute alteration in mental status: Code(s): R41.82 - Altered mental status, unspecified Status: Acute Assessment and Plan: Likely secondary to toxic metabolic encephalopathy secondary to infection in the urine monitor (3) Parkinson's disease with dyskinesia: Qualifiers: Fluctuating manifestations: with fluctuating manifestations Qualified Code(s): G20.B2 - Parkinson's disease with dyskinesia, with fluctuations Code(s): G20.B1 - Parkinson's disease with dyskinesia, without mention of fluctuations Status: Acute Assessment and Plan: On carbidopa levodopa will continue (4) Aortic stenosis: Qualifiers: Cardiac valve disease etiology: nonrheumatic Qualified Code(s): I35.0 - Nonrheumatic aortic (valve) stenosis Code(s): I35.0 - Nonrheumatic aortic (valve) stenosis Status: Acute Assessment and Plan: Continue to monitor (5) Alzheimer's dementia without behavioral disturbance: Code(s): G30.9 - Alzheimer's disease, unspecified; F02.80 - Dementia in other diseases classified elsewhere, unspecified severity, without behavioral disturbance, psychotic disturbance, mood disturbance, and anxiety Status: Acute Assessment and Plan: Resume home meds as need Patient is on donepezil and memantine (6) Lupus (systemic lupus erythematosus): Qualifiers: Systemic lupus erythematosus organ involvement: tubulo-interstitial nephropathy Systemic lupus erythematosus type: unspecified Qualified Code(s): M32.15 - 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 Code(s): M32.9 - Systemic lupus erythematosus, unspecified Status: Acute Assessment and Plan: On methotrexate (7) Weakness: Code(s): R53.1 - Weakness Status: Acute Assessment and Plan: PT OT when clinically able to participate (8) Rheumatoid arthritis involving multiple sites with positive rheumatoid factor: Code(s): M05.79 - Rheumatoid arthritis with rheumatoid factor of multiple sites without organ or systems involvement Status: Acute Assessment and Plan: Patient is on methotrexate (9) Abnormality of gait: Code(s): R26.9 - Unspecified abnormalities of gait and mobility Status: Acute Assessment and Plan: Fall precautions (10) Benign essential HTN: Code(s): I10 - Essential (primary) hypertension Status: Acute Assessment and Plan: Resume home meds as needed (11) Hypothyroidism (acquired): Code(s): E03.9 - Hypothyroidism, unspecified Status: Acute Assessment and Plan: Resume home meds (12) GERD (gastroesophageal reflux disease): Code(s): K21.9 - Gastro-esophageal reflux disease without esophagitis Status: Acute Assessment and Plan: PPI Time Spent With Patient Time with patient: 25 - 35 minutes Subjective Date/time seen: 07/14/24 08:18 Interval history: 88-year-old female w/PMH/ofParkinson's disease, dementia, rheumatoid arthritis, chronic kidney disease, SLE, GERD, aortic stenosis spinal stenosis. Patient was brought to emergency room for evaluation due to altered mental status. In ED, pt was obtunded unable to participate in history taking. Most of the history has been obtained upon reviewing medical records. Patient found to have a urine analysis is abnormal with numerous WBCs present more than 100 per high-power field. Patient has been admitted for further evaluation management and treatment. Chest xray: small left-sided pleural effusion without focal infiltrate CT head: No acute intracranial hemorrhage or suspicious mass effect. She was started on rocephin and admitted to [facility] floor for further eval/treatment 07/14- pt is seen and and examined. Resting in bed, appears comfortable. Review of Systems Review of Systems: ROS unobtainable: Yes unobtainable due to mental status (Obtundation/lethargy) Exam Narrative: Laying in bed Const: General: comfortable, no acute distress, well developed, ill appearing acutely, lethargic and average body habitus Nutritional Appearance: average body habitus HENMT: Head: normal to inspection, normocephalic and atraumatic Ears: hearing grossly normal bilaterally Face/Nose/Sinus: normal facial exam Face and sinus: normal facial exam Other: Neck collar on Eyes: General: appearance normal, both eyes and all related structures Pupils: Equal, round and reactive pupils present EOM: EOMs intact bilaterally Neck: Neck: full ROM, no lymphadenopathy and no JVD Thyroid: thyroid normal Lymphatic: no lymphadenopathy noted Resp: Effort & Inspection: normal respiratory effort and able to speak in complete sentences Auscultation: clear to auscultation bilaterally Cardio: Jugular venous distension: no JVD Rate: regular rate Rhythm: regular rhythm Heart sounds: S1 normal heart sound present and S2 normal heart sound present GI: Inspection: normal to inspection : General: Yes deferred Skin: Rashes: no rashes Wounds: no wounds Neuro: General: patient oriented x3, CN's II-XI intact bilaterally, patient obtunded and Unable to assess gait Cranial nerves: Yes CN's II-XII intact bilaterally and Yes Equal, round and reactive pupils present Cognition (Neuro): abnormal cognition (Lethargy /obtundation) Gait exam (Neuro): Unable to assess gait Extrem: General: normal to inspection, full ROM, no joint enlargement and no pedal edema Objective Data Vital Signs Vital Signs: Vital Signs - 24 hr 07/13/24 13:15 07/13/24 14:28 07/13/24 15:01 Temperature 97.6 F Pulse Rate 77 72 76 Respiratory Rate 15 12 Blood Pressure 114/66 108/66 Pulse Oximetry 97 98 Oxygen Delivery Room Air 07/13/24 18:20 07/13/24 19:41 07/13/24 20:00 Temperature Pulse Rate 72 75 Respiratory Rate 15 14 Blood Pressure 108/69 103/73 Pulse Oximetry 98 95 Oxygen Delivery Room Air 07/13/24 20:00 07/14/24 05:05 Temperature 97.8 F 97.8 F Pulse Rate 72 74 Respiratory Rate 16 17 Blood Pressure 102/66 132/64 Pulse Oximetry 98 94 Oxygen Delivery Intake/Output Intake/Output: Intake & Output 07/11/24 07/12/24 07/13/24 07/14/24 23:59 23:59 23:59 23:59 Intake Total 1050 0 Output Total 75 900 Balance 975 -900 Meds/Results Medications: Active Medications Generic Name Dose Route Start Last Admin Trade Name Freq PRN Reason Stop Dose Admin Acetaminophen 650 mg 07/13/24 18:37 Acetaminophen 325 Mg Tablet PO Q4H PRN Mild Pain (1-3) or Fever Acetaminophen 650 mg 07/14/24 09:00 Acetaminophen 325 Mg Tablet PO BID [facility] Aripiprazole 2.5 mg 07/14/24 09:00 Aripiprazole 2.5 Mg Tablet PO DAILY AYLIN Bisacodyl 10 mg 07/14/24 00:07 Bisacodyl 10 Mg Suppository RECTAL DAILY PRN constipation Carbidopa/Levodopa 1 tablet 07/14/24 09:00 Carbidopa/Levodopa 25/100 Mg Tablet PO TID [facility] Donepezil HCl 10 mg 07/14/24 21:00 Donepezil Hcl 10 Mg Tablet PO HS [facility] Duloxetine HCl 30 mg 07/14/24 09:00 Duloxetine Hcl 30 Mg Capsule.Dr PO DAILY [facility] Folic Acid 1 mg 07/14/24 09:00 Folic Acid 1 Mg Tablet BY MOUTH DAILY [facility] Levothyroxine Sodium 88 mcg 07/14/24 06:30 07/14/24 05:47 Levothyroxine Sodium 88 Mcg Tablet PO 88 mcg DAILY@0630 [facility] Administration Lisinopril 5 mg 07/14/24 09:00 Lisinopril 5 Mg Tablet PO DAILY [facility] Magnesium Hydroxide 30 ml 07/14/24 00:07 Magnesium Hydroxide Susp 30 Ml Udc PO DAILY PRN constipation Memantine 10 mg 07/14/24 09:00 Memantine 10 Mg Tablet PO DAILY [facility] Methotrexate 2.5 mg 07/14/24 09:00 Methotrexate 2.5 Mg Tab (*Chemo) PO MoWeFr [facility] Ondansetron HCl 4 mg 07/13/24 18:37 Ondansetron Inj 4 Mg/2 Ml Vial IV PUSH Q4H PRN Nausea Pantoprazole Sodium 40 mg 07/14/24 09:00 Pantoprazole 40 Mg Tablet PO DAILY [facility] Raloxifene HCl 60 mg 07/14/24 09:00 Raloxifene Hcl (*Chemo) 60 Mg Tablet PO DAILY [facility] Ropinirole HCl 0.5 mg 07/14/24 09:00 Ropinirole Hcl 0.5 Mg Tablet PO TID [facility] Radiology Results: ITS Impressions Chest X-Ray 07/13/24 17:39 IMPRESSION: Small left-sided pleural effusion without focal infiltrate Head CT 07/13/24 18:02 Impression: No acute intracranial hemorrhage or suspicious mass effect. Labs Labs: Laboratory Results - last 24 hr 07/13/24 07/13/24 07/13/24 13:27 13:42 17:08 WBC 6.0 RBC 3.88 L Hgb 11.7 L Hct 36.8 L MCV 94.8 MCH 30.2 MCHC 31.8 L RDW 13.7 Plt Count 199 MPV 11.6 H Immature Gran % (Auto) 0.7 H Neut % (Auto) 53.4 Lymph % (Auto) 29.7 Tucker % (Auto) 14.9 H Eos % (Auto) 1.0 Baso % (Auto) 0.3 Lymph # (Auto) 1.77 Tucker # (Auto) 0.9 H Eos # (Auto) 0.1 Baso # (Auto) 0.0 Abs Immat Gran (auto) 0.04 H Absolute Neuts (auto) 3.2 Absolute Nucleated RBC 0.000 Nucleated RBC % 0.0 PT 14.0 INR 1.0 APTT 27.7 Sodium 139 Potassium 3.9 Chloride 105 Carbon Dioxide 30 Anion Gap 4 BUN 14 Creatinine 0.66 L Estim Creat Clear Calc 54 Estimated GFR > 60 Glucose 97 Calcium 8.8 Total Bilirubin 0.5 AST 24 ALT 7 Alkaline Phosphatase 56 Troponin I 0.023 Total Protein 6.0 L Albumin 3.3 L Urine Color Yellow Urine Appearance Cloudy H Urine pH 5.5 Ur Specific [place] 1.019 Urine Protein Trace Urine Glucose (UA) Negative Urine Ketones Trace H Ur Blood (Man) 1+ H Urine Nitrate Positive H Urine Bilirubin Negative Urine Urobilinogen 1.0 Leukocyte Esterase Rfl 2+ H Urine RBC 0-2 Urine WBC >100 H Ur Squamous Epith Cells None seen Urine Bacteria 4+ Urine Casts 3-5 Influenza A (RT-PCR) Influenza B (RT-PCR) RSV (RT-PCR) SARS-CoV-2 RNA (RT-PCR) 07/13/24 17:12 WBC RBC Hgb Hct MCV MCH MCHC RDW Plt Count MPV Immature Gran % (Auto) Neut % (Auto) Lymph % (Auto) Tucker % (Auto) Eos % (Auto) Baso % (Auto) Lymph # (Auto) Tucker # (Auto) Eos # (Auto) Baso # (Auto) Abs Immat Gran (auto) Absolute Neuts (auto) Absolute Nucleated RBC Nucleated RBC % PT INR APTT Sodium Potassium Chloride Carbon Dioxide Anion Gap BUN Creatinine Estim Creat Clear Calc Estimated GFR Glucose Calcium Total Bilirubin AST ALT Alkaline Phosphatase Troponin I Total Protein Albumin Urine Color Urine Appearance Urine pH Ur Specific [place] Urine Protein Urine Glucose (UA) Urine Ketones Ur Blood (Man) Urine Nitrate Urine Bilirubin Urine Urobilinogen Leukocyte Esterase Rfl Urine RBC Urine WBC Ur Squamous Epith Cells Urine Bacteria Urine Casts Influenza A (RT-PCR) Negative Influenza B (RT-PCR) Negative RSV (RT-PCR) Negative SARS-CoV-2 RNA (RT-PCR) Negative Quality VTE Prophylaxis VTE prophylaxis: pharmacologic ordered
[2024-07-14 08:45] VITALS: BP 119/60
[2024-07-14] MEDS: MEMANTINE 10 MG TABLET PO (08:46)
[2024-07-14] MEDS: PANTOPRAZOLE 40 MG TABLET PO (08:46)
[2024-07-14] MEDS: rOPINIRole HCL 0.5 MG TABLET PO ×3 (08:46→17:42)
[2024-07-14] MEDS: RALOXIFENE HCL (*CHEMO) 60 MG TABLET PO (08:46)
[2024-07-14] MEDS: lisinopriL 5 MG TABLET PO (08:46)
[2024-07-14] MEDS: CARBIDOPA/LEVODOPA 25/100 MG TABLET 1 TABLET PO ×3 (08:46→17:43)
[2024-07-14] MEDS: ARIPiprazole 2.5 MG TABLET PO (08:46)
[2024-07-14] MEDS: ACETAMINOPHEN 325 MG TABLET 650 MG PO ×2 (08:46→17:43)
[2024-07-14] MEDS: FOLIC ACID 1 MG TABLET BY MOUTH (08:46)
[2024-07-14] MEDS: DULoxetine HCL 30 MG CAPSULE.DR PO (08:47)
[2024-07-14] MEDS: ENOXAPARIN 40 MG/0.4 ML SYRINGE SUB-Q (08:47)
[2024-07-14] MEDS: METHOTREXATE 2.5 MG TAB (*CHEMO) PO (08:49)
[2024-07-14 14:00] VITALS: BP 103/54; PULSE 80; RESP 18; TEMP 36.1; O2SAT 94
[2024-07-14 20:36] VITALS: BP 101/54; PULSE 64; RESP 18; TEMP 36.3; O2SAT 92
[2024-07-14] MEDS: DONEPEZIL HCL 10 MG TABLET PO (20:54)
[2024-07-15 05:52] VITALS: BP 114/68; PULSE 77; RESP 18; TEMP 36.6; O2SAT 96
[2024-07-15] MEDS: LEVOTHYROXINE SODIUM 88 MCG TABLET PO (06:16)
--- NOTE | 2024-07-15 08:08 | P.PNIM_ITS ---
Progress Note: A&P Assessment and Plan (1) UTI (urinary tract infection): Code(s): N39.0 - Urinary tract infection, site not specified Status: Acute Assessment and Plan: IV Rocephin- will continue IV for now follow UA/Culture- e coli- following sensitivities wbc improved- daily labs (2) Acute alteration in mental status: Code(s): R41.82 - Altered mental status, unspecified Status: Acute Assessment and Plan: Likely secondary to toxic metabolic encephalopathy secondary to infection in the urine monitor 07/15 somewhat confused still but better and stable (3) Parkinson's disease with dyskinesia: Qualifiers: Fluctuating manifestations: with fluctuating manifestations Qualified Code(s): G20.B2 - Parkinson's disease with dyskinesia, with fluctuations Code(s): G20.B1 - Parkinson's disease with dyskinesia, without mention of fluctuations Status: Acute Assessment and Plan: On carbidopa levodopa will continue (4) Aortic stenosis: Qualifiers: Cardiac valve disease etiology: nonrheumatic Qualified Code(s): I35.0 - Nonrheumatic aortic (valve) stenosis Code(s): I35.0 - Nonrheumatic aortic (valve) stenosis Status: Acute Assessment and Plan: Continue to monitor (5) Alzheimer's dementia without behavioral disturbance: Code(s): G30.9 - Alzheimer's disease, unspecified; F02.80 - Dementia in other diseases classified elsewhere, unspecified severity, without behavioral disturbance, psychotic disturbance, mood disturbance, and anxiety Status: Acute Assessment and Plan: Resume home meds as need Patient is on donepezil and memantine (6) Lupus (systemic lupus erythematosus): Qualifiers: Systemic lupus erythematosus organ involvement: tubulo-interstitial nephropathy Systemic lupus erythematosus type: unspecified Qualified Code(s): M32.15 - 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 Code(s): M32.9 - Systemic lupus erythematosus, unspecified Status: Acute Assessment and Plan: On methotrexate (7) Weakness: Code(s): R53.1 - Weakness Status: Acute Assessment and Plan: PT OT when clinically able to participate (8) Rheumatoid arthritis involving multiple sites with positive rheumatoid factor: Code(s): M05.79 - Rheumatoid arthritis with rheumatoid factor of multiple sites without organ or systems involvement Status: Acute Assessment and Plan: Patient is on methotrexate (9) Abnormality of gait: Code(s): R26.9 - Unspecified abnormalities of gait and mobility Status: Acute Assessment and Plan: Fall precautions (10) Benign essential HTN: Code(s): I10 - Essential (primary) hypertension Status: Acute Assessment and Plan: Resume home meds as needed hypotensive this afternoon- will hold her lisinopril and monitor (11) Hypothyroidism (acquired): Code(s): E03.9 - Hypothyroidism, unspecified Status: Acute Assessment and Plan: Resume home meds (12) GERD (gastroesophageal reflux disease): Code(s): K21.9 - Gastro-esophageal reflux disease without esophagitis Status: Acute Assessment and Plan: PPI Time Spent With Patient Time with patient: 25 - 35 minutes Subjective Date/time seen: 07/15/24 08:08 Interval history: 88-year-old female w/PMH/ofParkinson's disease, dementia, rheumatoid arthritis, chronic kidney disease, SLE, GERD, aortic stenosis spinal stenosis. Patient was brought to emergency room for evaluation due to altered mental status. In ED, pt was obtunded unable to participate in history taking. Most of the history has been obtained upon reviewing medical records. Patient found to have a urine analysis is abnormal with numerous WBCs present more than 100 per high- power field. Patient has been admitted for further evaluation management and treatment. Chest xray: small left-sided pleural effusion without focal infiltrate CT head: No acute intracranial hemorrhage or suspicious mass effect. She was started on rocephin and admitted to [facility] floor for further eval/treatment 07/14- pt is seen and and examined. Resting in bed, appears comfortable. 07/15 pt is seen and examined- no acute events overnight.. PT/OT added. Hypotensive this afternoon, no changes in mental state. denies pain. Review of Systems Review of Systems: ROS unobtainable: Yes unobtainable due to mental status (Obtundation/lethargy) Exam Narrative: Laying in bed Const: General: comfortable, no acute distress, well developed, ill appearing acutely, lethargic, patient obtunded and average body habitus Nutritional Appearance: average body habitus Orientation/consciousness: patient oriented x3, patient obtunded and lethargic HENMT: Head: normal to inspection, normocephalic and atraumatic Ears: hearing grossly normal bilaterally Face/Nose/Sinus: normal facial exam Face and sinus: normal facial exam Other: Neck collar on Eyes: General: appearance normal, both eyes and all related structures Pupils: Equal, round and reactive pupils present EOM: EOMs intact bilaterally Neck: Neck: full ROM, no lymphadenopathy and no JVD Thyroid: thyroid normal Lymphatic: no lymphadenopathy noted Resp: Effort & Inspection: normal respiratory effort and able to speak in complete sentences Auscultation: clear to auscultation bilaterally Cardio: Jugular venous distension: no JVD Rate: regular rate Rhythm: regular rhythm Heart sounds: S1 normal heart sound present and S2 normal heart sound present GI: Inspection: normal to inspection : General: Yes deferred Skin: Rashes: no rashes Wounds: no wounds Neuro: General: patient oriented x3, CN's II-XI intact bilaterally, patient obtunded and Unable to assess gait Cranial nerves: Yes CN's II-XII intact bilaterally and Yes Equal, round and reactive pupils present Cognition (Neuro): abnormal cognition (Lethargy /obtundation) Gait exam (Neuro): Unable to assess gait Extrem: General: normal to inspection, full ROM, no joint enlargement and no pedal edema Objective Data Vital Signs Vital Signs: Vital Signs - 24 hr 07/14/24 08:45 07/14/24 14:00 07/14/24 19:56 Temperature 97.0 F L Pulse Rate 80 Respiratory Rate 18 Blood Pressure 119/60 103/54 L Pulse Oximetry 94 Oxygen Delivery Room Air 07/14/24 20:36 07/15/24 05:52 Temperature 97.4 F L 97.9 F Pulse Rate 64 77 Respiratory Rate 18 18 Blood Pressure 101/54 L 114/68 Pulse Oximetry 92 96 Oxygen Delivery Intake/Output Intake/Output: Intake & Output 07/12/24 07/13/24 07/14/24 07/15/24 23:59 23:59 23:59 23:59 Intake Total 1050 360 250 Output Total 75 1300 1000 Balance 705 -275 -932 Meds/Results Medications: Active Medications Generic Name Dose Route Start Last Admin Trade Name Freq PRN Reason Stop Dose Admin Acetaminophen 650 mg 07/13/24 18:37 Acetaminophen 325 Mg Tablet PO Q4H PRN Mild Pain (1-3) or Fever Acetaminophen 650 mg 07/14/24 09:00 07/14/24 17:43 Acetaminophen 325 Mg Tablet PO 650 mg BID AYLIN Administration Aripiprazole 2.5 mg 07/14/24 09:00 07/14/24 08:46 Aripiprazole 2.5 Mg Tablet PO 2.5 mg DAILY AYLIN Administration Bisacodyl 10 mg 07/14/24 00:07 Bisacodyl 10 Mg Suppository RECTAL DAILY PRN constipation Carbidopa/Levodopa 1 tablet 07/14/24 09:00 07/14/24 17:43 Carbidopa/Levodopa 25/100 Mg Tablet PO 1 tablet TID AYLIN Administration Donepezil HCl 10 mg 07/14/24 21:00 07/14/24 20:54 Donepezil Hcl 10 Mg Tablet PO 10 mg HS AYLIN Administration Duloxetine HCl 30 mg 07/14/24 09:00 07/14/24 08:47 Duloxetine Hcl 30 Mg Capsule.Dr PO 30 mg DAILY AYLIN Administration Enoxaparin Sodium 40 mg 07/14/24 09:00 07/14/24 08:47 Enoxaparin 40 Mg/0.4 Ml Syringe SUB-Q 40 mg DAILY AYLIN Administration Folic Acid 1 mg 07/14/24 09:00 07/14/24 08:46 Folic Acid 1 Mg Tablet BY MOUTH 1 mg DAILY AYLIN Administration Ceftriaxone Sodium 1 gm in 50 mls @ 100 mls/hr 07/14/24 17:00 07/14/24 17:43 Rocephin 1 Gm/Ns 50 Ml IVPB 100 mls/hr Q24H AYLIN Administration Levothyroxine Sodium 88 mcg 07/14/24 06:30 07/15/24 06:16 Levothyroxine Sodium 88 Mcg Tablet PO 88 mcg DAILY@0630 AYLIN Administration Lisinopril 5 mg 07/14/24 09:00 07/14/24 08:46 Lisinopril 5 Mg Tablet PO 5 mg DAILY AYLIN Administration Magnesium Hydroxide 30 ml 07/14/24 00:07 Magnesium Hydroxide Susp 30 Ml Udc PO DAILY PRN constipation Memantine 10 mg 07/14/24 09:00 07/14/24 08:46 Memantine 10 Mg Tablet PO 10 mg DAILY AYLIN Administration Methotrexate 2.5 mg 07/14/24 09:00 07/14/24 08:49 Methotrexate 2.5 Mg Tab (*Chemo) PO 2.5 mg MoWeFr AYLIN Administration Ondansetron HCl 4 mg 07/13/24 18:37 Ondansetron Inj 4 Mg/2 Ml Vial IV PUSH Q4H PRN Nausea Pantoprazole Sodium 40 mg 07/14/24 09:00 07/14/24 08:46 Pantoprazole 40 Mg Tablet PO 40 mg DAILY AYLIN Administration Raloxifene HCl 60 mg 07/14/24 09:00 07/14/24 08:46 Raloxifene Hcl (*Chemo) 60 Mg Tablet PO 60 mg DAILY AYLIN Administration Ropinirole HCl 0.5 mg 07/14/24 09:00 07/14/24 17:42 Ropinirole Hcl 0.5 Mg Tablet PO 0.5 mg TID AYLIN Administration Radiology Results: ITS Impressions Chest X-Ray 07/13/24 17:39 IMPRESSION: Small left-sided pleural effusion without focal infiltrate Head CT 07/13/24 18:02 Impression: No acute intracranial hemorrhage or suspicious mass effect. Quality VTE Prophylaxis VTE prophylaxis: pharmacologic ordered
[2024-07-15 08:31] VITALS: BP 125/67
[2024-07-15] MEDS: FOLIC ACID 1 MG TABLET BY MOUTH (08:32)
[2024-07-15] MEDS: rOPINIRole HCL 0.5 MG TABLET PO ×3 (08:32→17:08)
[2024-07-15] MEDS: DULoxetine HCL 30 MG CAPSULE.DR PO (08:32)
[2024-07-15] MEDS: lisinopriL 5 MG TABLET PO (08:32)
[2024-07-15] MEDS: MEMANTINE 10 MG TABLET PO (08:33)
[2024-07-15] MEDS: RALOXIFENE HCL (*CHEMO) 60 MG TABLET PO (08:33)
[2024-07-15] MEDS: ARIPiprazole 2.5 MG TABLET PO (08:33)
[2024-07-15] MEDS: ACETAMINOPHEN 325 MG TABLET 650 MG PO ×2 (08:33→17:08)
[2024-07-15] MEDS: CARBIDOPA/LEVODOPA 25/100 MG TABLET 1 TABLET PO ×3 (08:33→17:08)
[2024-07-15] MEDS: ENOXAPARIN 40 MG/0.4 ML SYRINGE SUB-Q (08:33)
[2024-07-15] MEDS: PANTOPRAZOLE 40 MG TABLET PO (08:33)
[2024-07-15 08:34] LABS: Hematocrit 35.6 % (37.0-47.0); Hemoglobin 11.4 g/dL (12.0-15.0); Mean Corpuscular Hemoglobin 29.9 pg (26-34); Mean Corpuscular Volume 93.4 fl (80-100); Mean Platelet Volume 11.5 fl (7.4-10.4); Platelet Count Result 172 k/mm3 (150-375); Red Blood Count 3.81 M/mm3 (4.2-5.4); Red Cell Distribution Width 13.8 % (11.5-14.5); White Blood Count 5.9 K/mm3 (4.5-10.0)
[2024-07-15 08:47] LABS: Anion Gap 2 mmol/L (4-12); Blood Urea Nitrogen 11 mg/dL (7-17); Calcium 8.5 mg/dL (8.4-10.2); Carbon Dioxide 29 mmol/L (22-30); Chloride 106 mmol/L (98-107); Estimated CRCL calculation 49 ml/min; Estimated Glomerular Filt Rate > 60; Glucose 81 mg/dL (65-110); Potassium 3.9 mmol/L (3.4-5.0); Sodium 137 mmol/L (137-145)
[2024-07-15 14:00] VITALS: BP 88/46; PULSE 76; RESP 20; TEMP 36.3; O2SAT 97
[2024-07-15] MEDS: SODIUM CHLORIDE 0.9% IV 500 ML IV CONT (14:56)
[2024-07-15 16:04] VITALS: BP 92/51
[2024-07-15] MEDS: NITROFURANTOIN MONOHYD MACROCR 100 MG CAP PO (17:08)
[2024-07-15] MEDS: DONEPEZIL HCL 10 MG TABLET PO (21:09)
[2024-07-15 21:12] VITALS: BP 105/60; PULSE 79; RESP 18; TEMP 36.6; O2SAT 96
[2024-07-16 05:52] LABS: Hematocrit 34.9 % (37.0-47.0); Hemoglobin 11.2 g/dL (12.0-15.0); Mean Corpuscular HGB Conc 32.1 g/dl (32-36); Mean Corpuscular Hemoglobin 30.1 pg (26-34); Mean Corpuscular Volume 93.8 fl (80-100); Mean Platelet Volume 12.3 fl (7.4-10.4); Platelet Count Result 175 k/mm3 (150-375); Red Blood Count 3.72 M/mm3 (4.2-5.4); Red Cell Distribution Width 13.8 % (11.5-14.5); White Blood Count 5.5 K/mm3 (4.5-10.0)
[2024-07-16] MEDS: LEVOTHYROXINE SODIUM 88 MCG TABLET PO (05:59)
[2024-07-16 06:00] VITALS: BP 116/70; PULSE 77; RESP 18; TEMP 36.2; O2SAT 95
[2024-07-16 06:04] LABS: Anion Gap 3 mmol/L (4-12); Blood Urea Nitrogen 11 mg/dL (7-17); Calcium 8.7 mg/dL (8.4-10.2); Carbon Dioxide 29 mmol/L (22-30); Chloride 107 mmol/L (98-107); Estimated CRCL calculation 44 ml/min; Estimated Glomerular Filt Rate > 60; Glucose 79 mg/dL (65-110); Potassium 3.9 mmol/L (3.4-5.0); Sodium 139 mmol/L (137-145)
--- NOTE | 2024-07-16 08:08 | PM.IMPN ---
Progress Note: A&P Assessment and Plan (1) UTI (urinary tract infection): Code(s): N39.0 - Urinary tract infection, site not specified Status: Acute Assessment and Plan: IV Rocephin- will continue IV for now follow UA/Culture- e coli- following sensitivities- will downgrade to PO Microbid- end date- 07/20/24 at 0900 and anticipate d/c within the next couple of days wbc improved- daily labs (2) Acute alteration in mental status: Code(s): R41.82 - Altered mental status, unspecified Status: Acute Assessment and Plan: Likely secondary to toxic metabolic encephalopathy secondary to infection in the urine monitor 07/15 somewhat confused still but better and stable (3) Parkinson's disease with dyskinesia: Qualifiers: Fluctuating manifestations: with fluctuating manifestations Qualified Code(s): G20.B2 - Parkinson's disease with dyskinesia, with fluctuations Code(s): G20.B1 - Parkinson's disease with dyskinesia, without mention of fluctuations Status: Acute Assessment and Plan: On carbidopa levodopa will continue (4) Aortic stenosis: Qualifiers: Cardiac valve disease etiology: nonrheumatic Qualified Code(s): I35.0 - Nonrheumatic aortic (valve) stenosis Code(s): I35.0 - Nonrheumatic aortic (valve) stenosis Status: Acute Assessment and Plan: Continue to monitor (5) Alzheimer's dementia without behavioral disturbance: Code(s): G30.9 - Alzheimer's disease, unspecified; F02.80 - Dementia in other diseases classified elsewhere, unspecified severity, without behavioral disturbance, psychotic disturbance, mood disturbance, and anxiety Status: Acute Assessment and Plan: Resume home meds as need Patient is on donepezil and memantine (6) Lupus (systemic lupus erythematosus): Qualifiers: Systemic lupus erythematosus organ involvement: tubulo-interstitial nephropathy Systemic lupus erythematosus type: unspecified Qualified Code(s): M32.15 - 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 Code(s): M32.9 - Systemic lupus erythematosus, unspecified Status: Acute Assessment and Plan: On methotrexate (7) Weakness: Code(s): R53.1 - Weakness Status: Acute Assessment and Plan: PT OT when clinically able to participate (8) Rheumatoid arthritis involving multiple sites with positive rheumatoid factor: Code(s): M05.79 - Rheumatoid arthritis with rheumatoid factor of multiple sites without organ or systems involvement Status: Acute Assessment and Plan: Patient is on methotrexate (9) Abnormality of gait: Code(s): R26.9 - Unspecified abnormalities of gait and mobility Status: Acute Assessment and Plan: Fall precautions (10) Benign essential HTN: Code(s): I10 - Essential (primary) hypertension Status: Acute Assessment and Plan: Resume home meds as needed hypotensive this afternoon- will hold her lisinopril and monitor holding lisinopril- BP improved (11) Hypothyroidism (acquired): Code(s): E03.9 - Hypothyroidism, unspecified Status: Acute Assessment and Plan: Resume home meds (12) GERD (gastroesophageal reflux disease): Code(s): K21.9 - Gastro-esophageal reflux disease without esophagitis Status: Acute Assessment and Plan: PPI Time Spent With Patient Time with patient: 25 - 35 minutes Subjective Date/time seen: 07/16/24 08:09 Interval history: 88-year-old female w/PMH/ofParkinson's disease, dementia, rheumatoid arthritis, chronic kidney disease, SLE, GERD, aortic stenosis spinal stenosis. Patient was brought to emergency room for evaluation due to altered mental status. In ED, pt was obtunded unable to participate in history taking. Most of the history has been obtained upon reviewing medical records. Patient found to have a urine analysis is abnormal with numerous WBCs present more than 100 per high-power field. Patient has been admitted for further evaluation management and treatment. Chest xray: small left-sided pleural effusion without focal infiltrate CT head: No acute intracranial hemorrhage or suspicious mass effect. She was started on rocephin and admitted to [facility] floor for further eval/treatment 07/14- pt is seen and and examined. Resting in bed, appears comfortable. 07/15 pt is seen and examined- no acute events overnight.. PT/OT added. Hypotensive this afternoon, no changes in mental state. denies pain. 07/17- pt/ot was added yesterday-waiting for eval. Apparently can be approved to go tomorrow to [facility]. Exam Narrative: Laying in bed Const: General: comfortable, no acute distress, well developed, ill appearing acutely, lethargic, patient obtunded and average body habitus Nutritional Appearance: average body habitus Orientation/consciousness: patient oriented x3, patient obtunded and lethargic HENMT: Head: normal to inspection, normocephalic and atraumatic Ears: hearing grossly normal bilaterally Face/Nose/Sinus: normal facial exam Face and sinus: normal facial exam Other: Neck collar on Eyes: General: appearance normal, both eyes and all related structures Pupils: Equal, round and reactive pupils present EOM: EOMs intact bilaterally Neck: Neck: full ROM, no lymphadenopathy and no JVD Thyroid: thyroid normal Lymphatic: no lymphadenopathy noted Resp: Effort & Inspection: normal respiratory effort and able to speak in complete sentences Auscultation: clear to auscultation bilaterally Cardio: Jugular venous distension: no JVD Rate: regular rate Rhythm: regular rhythm Heart sounds: S1 normal heart sound present and S2 normal heart sound present GI: Inspection: normal to inspection : General: Yes deferred Skin: Rashes: no rashes Wounds: no wounds Neuro: General: patient oriented x3, CN's II-XI intact bilaterally, patient obtunded and Unable to assess gait Cranial nerves: Yes CN's II-XII intact bilaterally and Yes Equal, round and reactive pupils present Cognition (Neuro): abnormal cognition (Lethargy /obtundation) Gait exam (Neuro): Unable to assess gait Extrem: General: normal to inspection, full ROM, no joint enlargement and no pedal edema Objective Data Vital Signs Vital Signs: Vital Signs - 24 hr 07/15/24 08:31 07/15/24 14:00 07/15/24 16:04 Temperature 97.3 F L Pulse Rate 76 Respiratory Rate 20 Blood Pressure 125/67 88/46 L 92/51 L Pulse Oximetry 97 Oxygen Delivery 07/15/24 19:46 07/15/24 21:12 07/16/24 06:00 Temperature 98 F 97.1 F L Pulse Rate 79 77 Respiratory Rate 18 18 Blood Pressure 105/60 116/70 Pulse Oximetry 96 95 Oxygen Delivery Room Air Intake/Output Intake/Output: Intake & Output 07/13/24 07/14/24 07/15/24 07/16/24 23:59 23:59 23:59 23:59 Intake Total 1050 360 970 250 Output Total 75 1300 1900 700 Balance 975 -940 -930 -450 Meds/Results Medications: Active Medications Generic Name Dose Route Start Last Admin Trade Name Freq PRN Reason Stop Dose Admin Acetaminophen 650 mg 07/13/24 18:37 Acetaminophen 325 Mg Tablet PO Q4H PRN Mild Pain (1-3) or Fever Acetaminophen 650 mg 07/14/24 09:00 07/15/24 17:08 Acetaminophen 325 Mg Tablet PO 650 mg BID AYLIN Administration Aripiprazole 2.5 mg 07/14/24 09:00 07/15/24 08:33 Aripiprazole 2.5 Mg Tablet PO 2.5 mg DAILY AYLIN Administration Bisacodyl 10 mg 07/14/24 00:07 Bisacodyl 10 Mg Suppository RECTAL DAILY PRN constipation Carbidopa/Levodopa 1 tablet 07/14/24 09:00 07/15/24 17:08 Carbidopa/Levodopa 25/100 Mg Tablet PO 1 tablet TID AYLIN Administration Donepezil HCl 10 mg 07/14/24 21:00 07/15/24 21:09 Donepezil Hcl 10 Mg Tablet PO 10 mg HS AYLIN Administration Duloxetine HCl 30 mg 07/14/24 09:00 07/15/24 08:32 Duloxetine Hcl 30 Mg Capsule.Dr PO 30 mg DAILY AYLIN Administration Enoxaparin Sodium 40 mg 07/14/24 09:00 07/15/24 08:33 Enoxaparin 40 Mg/0.4 Ml Syringe SUB-Q 40 mg DAILY AYLIN Administration Folic Acid 1 mg 07/14/24 09:00 07/15/24 08:32 Folic Acid 1 Mg Tablet BY MOUTH 1 mg DAILY AYLIN Administration Levothyroxine Sodium 88 mcg 07/14/24 06:30 07/16/24 05:59 Levothyroxine Sodium 88 Mcg Tablet PO 88 mcg DAILY@0630 AYLIN Administration Lisinopril 5 mg 07/14/24 09:00 07/15/24 08:32 Lisinopril 5 Mg Tablet PO 5 mg DAILY AYLIN Administration Magnesium Hydroxide 30 ml 07/14/24 00:07 Magnesium Hydroxide Susp 30 Ml Udc PO DAILY PRN constipation Memantine 10 mg 07/14/24 09:00 07/15/24 08:33 Memantine 10 Mg Tablet PO 10 mg DAILY AYLIN Administration Methotrexate 2.5 mg 07/14/24 09:00 07/14/24 08:49 Methotrexate 2.5 Mg Tab (*Chemo) PO 2.5 mg MoWeFr AYLIN Administration Nitrofurantoin Macrocrystals 100 mg 07/15/24 17:00 07/15/24 17:08 Nitrofurantoin Monohyd Macrocr 100 Mg Cap PO 07/20/24 09:01 100 mg BID AYLIN Administration Ondansetron HCl 4 mg 07/13/24 18:37 Ondansetron Inj 4 Mg/2 Ml Vial IV PUSH Q4H PRN Nausea Pantoprazole Sodium 40 mg 07/14/24 09:00 07/15/24 08:33 Pantoprazole 40 Mg Tablet PO 40 mg DAILY AYLIN Administration Raloxifene HCl 60 mg 07/14/24 09:00 07/15/24 08:33 Raloxifene Hcl (*Chemo) 60 Mg Tablet PO 60 mg DAILY AYLIN Administration Ropinirole HCl 0.5 mg 07/14/24 09:00 07/15/24 17:08 Ropinirole Hcl 0.5 Mg Tablet PO 0.5 mg TID AYLIN Administration Radiology Results: ITS Impressions Chest X-Ray 07/13/24 17:39 IMPRESSION: Small left-sided pleural effusion without focal infiltrate Head CT 07/13/24 18:02 Impression: No acute intracranial hemorrhage or suspicious mass effect. Labs Labs: Laboratory Results - last 24 hr 07/15/24 07/16/24 08:26 05:09 WBC 5.9 5.5 RBC 3.81 L 3.72 L Hgb 11.4 L 11.2 L Hct 35.6 L 34.9 L MCV 93.4 93.8 MCH 29.9 30.1 MCHC 32.0 32.1 RDW 13.8 13.8 Plt Count 172 175 MPV 11.5 H 12.3 H Sodium 137 139 Potassium 3.9 3.9 Chloride 106 107 Carbon Dioxide 29 29 Anion Gap 2 L 3 L BUN 11 11 Creatinine 0.68 L 0.76 Estim Creat Clear Calc 49 44 Estimated GFR > 60 > 60 Glucose 81 79 Calcium 8.5 8.7 Quality VTE Prophylaxis VTE prophylaxis: pharmacologic ordered
[2024-07-16 09:20] VITALS: O2SAT 93
[2024-07-16] MEDS: ARIPiprazole 2.5 MG TABLET PO (09:23)
[2024-07-16] MEDS: rOPINIRole HCL 0.5 MG TABLET PO ×3 (09:23→17:39)
[2024-07-16] MEDS: PANTOPRAZOLE 40 MG TABLET PO (09:23)
[2024-07-16] MEDS: FOLIC ACID 1 MG TABLET BY MOUTH (09:23)
[2024-07-16] MEDS: MEMANTINE 10 MG TABLET PO (09:23)
[2024-07-16] MEDS: CARBIDOPA/LEVODOPA 25/100 MG TABLET 1 TABLET PO ×3 (09:23→17:39)
[2024-07-16] MEDS: ACETAMINOPHEN 325 MG TABLET 650 MG PO ×2 (09:23→17:39)
[2024-07-16] MEDS: RALOXIFENE HCL (*CHEMO) 60 MG TABLET PO (09:23)
[2024-07-16] MEDS: METHOTREXATE 2.5 MG TAB (*CHEMO) PO (09:23)
[2024-07-16] MEDS: NITROFURANTOIN MONOHYD MACROCR 100 MG CAP PO ×2 (09:23→17:39)
[2024-07-16] MEDS: DULoxetine HCL 30 MG CAPSULE.DR PO (09:23)
[2024-07-16] MEDS: ENOXAPARIN 40 MG/0.4 ML SYRINGE SUB-Q (09:24)
[2024-07-16 09:29] VITALS: O2SAT 93
[2024-07-16 14:07] VITALS: BP 100/66; PULSE 80; RESP 16; TEMP 35.8; O2SAT 97
[2024-07-16 15:21] VITALS: BP 99/63; PULSE 76; TEMP 36.6; O2SAT 99
--- NOTE | 2024-07-16 17:09 | PC.NURSE ---
On 07/16/24, the student, Katherine Saini, provided care and completed [facility] documentation on this patient. I have reviewed the student's documentation and agree with the findings.
[2024-07-16] MEDS: DONEPEZIL HCL 10 MG TABLET PO (21:04)
[2024-07-16 21:15] VITALS: BP 101/57; PULSE 77; RESP 18; TEMP 36.6; O2SAT 96
[2024-07-16] MEDS: MAGNESIUM HYDROXIDE SUSP 30 ML UDC PO (23:23)
[2024-07-17 05:44] LABS: Hematocrit 34.7 % (37.0-47.0); Hemoglobin 11.2 g/dL (12.0-15.0); Mean Corpuscular HGB Conc 32.3 g/dl (32-36); Mean Corpuscular Hemoglobin 30.1 pg (26-34); Mean Corpuscular Volume 93.3 fl (80-100); Mean Platelet Volume 12.5 fl (7.4-10.4); Platelet Count Result 169 k/mm3 (150-375); Red Blood Count 3.72 M/mm3 (4.2-5.4); Red Cell Distribution Width 13.8 % (11.5-14.5); White Blood Count 5.2 K/mm3 (4.5-10.0)
[2024-07-17 05:53] LABS: Anion Gap 3 mmol/L (4-12); Blood Urea Nitrogen 10 mg/dL (7-17); Calcium 8.3 mg/dL (8.4-10.2); Carbon Dioxide 30 mmol/L (22-30); Chloride 105 mmol/L (98-107); Estimated CRCL calculation 52 ml/min; Estimated Glomerular Filt Rate > 60; Glucose 79 mg/dL (65-110); Potassium 3.5 mmol/L (3.4-5.0); Sodium 138 mmol/L (137-145)
[2024-07-17 06:00] VITALS: BP 140/85; PULSE 82; RESP 18; TEMP 36.4; O2SAT 96
[2024-07-17] MEDS: LEVOTHYROXINE SODIUM 88 MCG TABLET PO (06:14)
--- NOTE | 2024-07-17 08:21 | P.DS_ITS ---
DS: Admitting Diagnosis Discharge Date 07/17 Admitting Diagnosis ams DS: Discharge Diagnosis Discharge Diagnosis (1) UTI (urinary tract infection): Code(s): N39.0 - Urinary tract infection, site not specified Status: Acute (2) Acute alteration in mental status: Code(s): R41.82 - Altered mental status, unspecified Status: Acute (3) Parkinson's disease with dyskinesia: Qualifiers: Fluctuating manifestations: with fluctuating manifestations Qualified Code(s): G20.B2 - Parkinson's disease with dyskinesia, with fluctuations Code(s): G20.B1 - Parkinson's disease with dyskinesia, without mention of fluctuations Status: Acute (4) Aortic stenosis: Qualifiers: Cardiac valve disease etiology: nonrheumatic Qualified Code(s): I35.0 - Nonrheumatic aortic (valve) stenosis Code(s): I35.0 - Nonrheumatic aortic (valve) stenosis Status: Acute (5) Alzheimer's dementia without behavioral disturbance: Code(s): G30.9 - Alzheimer's disease, unspecified; F02.80 - Dementia in other diseases classified elsewhere, unspecified severity, without behavioral disturbance, psychotic disturbance, mood disturbance, and anxiety Status: Acute (6) Lupus (systemic lupus erythematosus): Qualifiers: Systemic lupus erythematosus organ involvement: tubulo-interstitial nephropathy Systemic lupus erythematosus type: unspecified Qualified Code(s): M32.15 - 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 Code(s): M32.9 - Systemic lupus erythematosus, unspecified Status: Acute (7) Weakness: Code(s): R53.1 - Weakness Status: Acute (8) Rheumatoid arthritis involving multiple sites with positive rheumatoid factor: Code(s): M05.79 - Rheumatoid arthritis with rheumatoid factor of multiple sites without organ or systems involvement Status: Acute (9) Abnormality of gait: Code(s): R26.9 - Unspecified abnormalities of gait and mobility Status: Acute (10) Benign essential HTN: Code(s): I10 - Essential (primary) hypertension Status: Acute (11) Hypothyroidism (acquired): Code(s): E03.9 - Hypothyroidism, unspecified Status: Acute (12) GERD (gastroesophageal reflux disease): Code(s): K21.9 - Gastro-esophageal reflux disease without esophagitis Status: Acute DS: Summary Hospital Course Hospital Course: 88-year-old female w/PMH/ofParkinson's disease, dementia, rheumatoid arthritis, chronic kidney disease, SLE, GERD, aortic stenosis spinal stenosis. Patient was brought to emergency room for evaluation due to altered mental status. In ED, pt was obtunded unable to participate in history taking. Most of the history has been obtained upon reviewing medical records. Patient found to have a urine analysis is abnormal with numerous WBCs present more than 100 per high- power field. Patient has been admitted for further evaluation management and treatment. Chest xray: small left-sided pleural effusion without focal infiltrate CT head: No acute intracranial hemorrhage or suspicious mass effect. She was started on rocephin [facility]/treatment # UTI Started on IV Rocephin-follow UA/Culture- e coli- following sensitivities - will downgrade to PO Microbid- end date- 07/20/24 at 0900 and anticipate d/c within the next couple of days wbc improved- daily labs #AMS Likely secondary to toxic metabolic encephalopathy secondary to infection in the urine monitor 07/15 somewhat confused still but better and stable #Parkinson on chronic [id number] # Alzheimer's donepezil and memantine- will continue- no changes # SLE -on methotrexate-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 # HTN had been hypotensive here- holding lisinopril- will need close monitoring to see if it needs to be resumed Status at Discharge Functional status at discharge: uses cane/walker Overall status at discharge: patient is progressing back to baseline Time Spent with Patient Time attestation: Total time spent providing and/or coordinating discharge services: Time spent: Greater than 30 minutes Exam Narrative: Laying in bed Const: General: comfortable, no acute distress, well developed, ill appearing acutely and average body habitus Nutritional Appearance: average body habitus Orientation/consciousness: patient oriented x3 Other: drowsy HENMT: Head: normal to inspection, normocephalic and atraumatic Ears: hearing grossly normal bilaterally Face/Nose/Sinus: normal facial exam Face and sinus: normal facial exam Other: Neck collar on Eyes: General: appearance normal, both eyes and all related structures Pupils: Equal, round and reactive pupils present EOM: EOMs intact bilaterally Neck: Neck: full ROM, no lymphadenopathy and no JVD Thyroid: thyroid normal Lymphatic: no lymphadenopathy noted Resp: Effort & Inspection: normal respiratory effort and able to speak in complete sentences Auscultation: diminished lung sounds Cardio: Jugular venous distension: no JVD Rate: regular rate Rhythm: regular rhythm Heart sounds: S1 normal heart sound present and S2 normal heart sound present GI: Inspection: normal to inspection : General: Yes deferred Skin: Rashes: no rashes Wounds: no wounds Neuro: General: CN's II-XI intact bilaterally and Unable to assess gait Cranial nerves: Yes CN's II-XII intact bilaterally and Yes Equal, round and reactive pupils present Cognition (Neuro): abnormal cognition (Lethargy /obtundation) Gait exam (Neuro): Unable to assess gait Other: oriented to self and place, somewhat slow to reply Extrem: General: normal to inspection, full ROM, no joint enlargement and no pedal edema DS: Data Data Completed and Pending Completed studies during hospitalization: head ct, chest xray Labs on day of discharge: Labs from last 24 hours 07/17/24 04:03 WBC 5.2 RBC 3.72 L Hgb 11.2 L Hct 34.7 L MCV 93.3 MCH 30.1 MCHC 32.3 RDW 13.8 Plt Count 169 MPV 12.5 H Sodium 138 Potassium 3.5 Chloride 105 Carbon Dioxide 30 Anion Gap 3 L BUN 10 Creatinine 0.63 L Estim Creat Clear Calc 52 Estimated GFR > 60 Glucose 79 Calcium 8.3 L Discharge Plan Discharge Attending physician on discharge: Sabine Camacho Discharging Clinician: Chapis Darby Patient Disposition: SNF Activity: october shower Diet: regular Patient Language: Danish Stand Alone Forms: General Discharge Information Follow-up/Referrals: Jesus Heredia MD [Primary Care Provider] - 1 Week Discharge Medications: New nitrofurantoin monohyd/m-cryst [Macrobid] 100 mg Capsule 100 mg PO BID Qty: 6 0RF Continued duloxetine 30 mg capsule,delayed release(DR/EC) 30 mg PO DAILY Qty: 90 2RF carbidopa-levodopa [Sinemet] 25-100 mg tablet 1 tablet PO TID Qty: 90 4RF donepezil 10 mg tablet 10 mg PO HS Rx Instructions: TAKE 1 TABLET DAILY AT BEDTIME levothyroxine [Synthroid] 88 mcg tablet 88 mcg PO DAILY pantoprazole 40 mg tablet,delayed release (DR/EC) 40 mg PO DAILY aripiprazole 5 mg tablet 2.5 mg PO DAILY memantine 10 mg tablet 10 mg PO DAILY acetaminophen 325 mg capsule 650 mg PO BID magnesium hydroxide 400 mg/5 mL suspension 30 ml PO DAILY PRN (Reason: constipation) bisacodyl [Laxative (bisacodyl)] 10 mg suppository 10 mg RECTAL DAILY PRN (Reason: constipation) Rx Instructions: If Mom not effective methotrexate sodium 2.5 mg tablet 2.5 mg PO 3XW Qty: 36 4RF Rx Instructions: one tablet three times a week Friday, Friday, Friday raloxifene [Evista] 60 mg tablet 60 mg PO DAILY Qty: 90 3RF folic acid 1 mg tablet See Rx Instructions .ROUTE .COMPLEX Qty: 90 3RF Dose Instruction: TAKE 1 TABLET DAILY Rx Instructions: TAKE 1 TABLET DAILY ropinirole 0.5 mg tablet 0.5 mg PO TID Qty: 270 1RF Held lisinopril 5 mg tablet 5 mg PO DAILY Hold Instructions: Resume on 07/30/24. please monitor BP and re evaluate of lisinopril needs to be restarted as pt had several soft BP (90/60's range) Date of admission: 07/14/24 09:51 Primary Care Provider: Jesus Heredia Admitting Provider: Sabine Camacho Attending physician on admission: Sabine Camacho Condition: Stable Quality VTE Prophylaxis VTE prophylaxis: pharmacologic ordered Hospitalist MIPS Heart Failure (Exclusion) Patient has history of Heart Transplant or Left Ventricular Assistive Device?: No IF YES, STOP HERE Heart Failure (Qualifier) Patient has current or prior documentation of LVEF less than or equal to 40%, or mod/servere depressed LVSF?: No IF NO, STOP HERE
[2024-07-17] MEDS: CARBIDOPA/LEVODOPA 25/100 MG TABLET 1 TABLET PO ×3 (08:58→16:49)
[2024-07-17] MEDS: ARIPiprazole 2.5 MG TABLET PO (08:58)
[2024-07-17] MEDS: rOPINIRole HCL 0.5 MG TABLET PO ×3 (08:58→16:49)
[2024-07-17] MEDS: NITROFURANTOIN MONOHYD MACROCR 100 MG CAP PO ×2 (08:58→16:50)
[2024-07-17] MEDS: PANTOPRAZOLE 40 MG TABLET PO (08:58)
[2024-07-17] MEDS: ACETAMINOPHEN 325 MG TABLET 650 MG PO ×2 (08:58→16:49)
[2024-07-17] MEDS: FOLIC ACID 1 MG TABLET BY MOUTH (08:58)
[2024-07-17] MEDS: MEMANTINE 10 MG TABLET PO (08:58)
[2024-07-17] MEDS: RALOXIFENE HCL (*CHEMO) 60 MG TABLET PO (08:58)
[2024-07-17] MEDS: DULoxetine HCL 30 MG CAPSULE.DR PO (08:58)
[2024-07-17] MEDS: ENOXAPARIN 40 MG/0.4 ML SYRINGE SUB-Q (09:09)
[2024-07-17 14:00] VITALS: BP 91/45; PULSE 74; RESP 16; TEMP 36.3; O2SAT 95
[2024-07-17 15:19] LABS: SARS-CoV-2 RNA PCR Negative (Negative)
== END 2024-07-17 20:10 | DRG 689 ==
LOC: ANHED 18:28 → ANH2MED 07-14 06:08
PROVIDERS: Emergency Medicine; Nurse Practitioner; Admitting Provider Hospitalist; Emergency Provider Student in an Organized Health Care Education/Training Program; PCP Family Medicine; Visit Provider Hospitalist
DX: N39.0 Urinary tract infection, site not specified (principal); G93.41 Metabolic encephalopathy; J90 Pleural effusion, not elsewhere classified; B96.20 Unspecified Escherichia coli [E. coli] as the cause of diseases classified elsewhere; I12.9 Hypertensive chronic kidney disease with stage 1 through stage 4 chronic kidney disease, or unspecified chronic kidney disease; N18.9 Chronic kidney disease, unspecified; M32.9 Systemic lupus erythematosus, unspecified; G20.A1 Parkinson's disease without dyskinesia, without mention of fluctuations; G30.9 Alzheimer's disease, unspecified; F02.80 Dementia in other diseases classified elsewhere, unspecified severity, without behavioral disturbance, psychotic disturbance, mood disturbance, and anxiety; K21.9 Gastro-esophageal reflux disease without esophagitis; M05.9 Rheumatoid arthritis with rheumatoid factor, unspecified; I35.0 Nonrheumatic aortic (valve) stenosis; E78.2 Mixed hyperlipidemia; E03.9 Hypothyroidism, unspecified; M85.80 Other specified disorders of bone density and structure, unspecified site; R91.1 Solitary pulmonary nodule; M81.0 Age-related osteoporosis without current pathological fracture; M48.061 Spinal stenosis, 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 neurogenic claudication; Z96.651 Presence of right artificial knee joint; Z96.642 Presence of left artificial hip joint; Z66 Do not resuscitate; F32.9 Major depressive disorder, single episode, unspecified; S12.031D Nondisplaced posterior arch fracture of first cervical vertebra, subsequent encounter for fracture with routine healing; W19.XXXD Unspecified fall, subsequent encounter; D64.9 Anemia, unspecified
CPT/HCPCS: 36415; 70450; 71045; 80048; 80053; 81001; 84484; 85025; 85027; 85610; 85730; 87086; 87186; 87635; 87637; 93005; 96365; 96375; 97161; 97165; 99285; A9270; J0696; J1650; J7030; J7040

== ENCOUNTER 2024-08-05 15:07 | Outpatient (CLI) | payer MEDICARE, OTHER, SELFPAY ==
--- NOTE | ~2024-08-05 | CT_ITS ---
EXAMINATION: CT cervical spine wo con DATE: 08/05/2024 15:39 INDICATION: Cervical spine fracture. TECHNIQUE: Computed tomography (CT) of the cervical spine was performed without intravenous contrast. Automated exposure control and iterative reconstruction technique were employed. The dose-length pro duct was 163.52 mGy-cm. COMPARISON: CT cervical spine 06/05/2024 FINDINGS: There is 5 degrees levocurvature of cervical spine. There are fractures of the right anter ior and posterior C1 arches in near anatomic alignment with faint early callus formation. Vertebral b jimmy heights are normal. There is mildly decreased disc height at C4-C5 and severely decreased disc he ight at C5-C6 and C6-C7. The following disc levels are specifically discussed: C2-C3: There is no uncovertebral joint osteoarthritis. There is severe left facet joint osteoarthriti s. There is ankylosis of right facet joint with severe hypertrophy. There is mild right neural forami nal stenosis. There is no central canal stenosis. C3-C4: There is mild bilateral uncovertebral joint osteoarthritis. There is severe bilateral facet donato int osteoarthritis. There is mild bilateral neural foraminal stenosis. There is no central canal sten osis. C4-C5: There is severe right and moderate left uncovertebral joint osteoarthritis. There is severe bi lateral facet joint osteoarthritis. There is mild bilateral neural foraminal stenosis. There is mild central canal stenosis. C5-C6: There is severe bilateral uncovertebral joint osteoarthritis. There is severe bilateral facet joint osteoarthritis. There is mild bilateral neural foraminal stenosis. There is mild central canal stenosis. C6-C7: There is severe bilateral uncovertebral joint osteoarthritis. There is severe bilateral facet joint osteoarthritis. There is mild bilateral neural foraminal stenosis. There is mild central canal stenosis. C7-T1: There is no uncovertebral joint osteoarthritis. There is severe bilateral facet joint osteoart hritis. There is mild bilateral neural foraminal stenosis. There is no central canal stenosis. IMPRESSION: 1. Healing fractures of the right anterior and posterior C1 arches. 2. Severe cervical spondylosis. Reviewed, dictated and finalized at location A. NT SERVICES COORDINATOR
--- NOTE | ~2024-08-05 | XR_ITS ---
HISTORY: Fracture cervical COMPARISON: Reference is made to a CT examination of the cervical spine dated 06/05/2024 TECHNIQUE: 4 views of the cervical spine were performed. FINDINGS: Diffuse bony demineralization. Visualization of the cervical spine to the superior endplate of C7 on swimmer's view only. Straightening of the normal curvature of the cervical spine is identified. No prevertebral soft tissue swelling is appreciated. The previously identified fractures of the cervical spine are not definitively appreciated on plain r adiographic evaluation The dens is equidistant between the pillars, without asymmetry. Air column within the trachea is midline. The visualized portions of the bilateral upper lung brandon are unremarkable. IMPRESSION: Poor visualization of the C1 arch fractures, seen on CT examination dated 06/05/2024. Reviewed, dictated and finalized at location A. HMAKER APPRENTICE IMPRESSION: Poor visualization of the C1 arch fractures, seen on CT examination dated 2023.
--- OUTSIDE RECORDS SUMMARY | 2024-08-05 15:16 | XMS_ITS | Clinical Summary ---
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 before breakfast Active memantine (NAMENDA) 5 mg tabletIndicatio ns:Moderate to Severe Alzheimer's Type Dementia Take 5 mg by mouth 2 (two) times a day Active methotrexate 2.5 mg tablet Take by mouth every [address] (PROTONIX) 40 mg EC tablet Take 40 mg by mouth daily Active raloxifene (EVISTA) 60 mg tablet Take 60 mg by mouth daily Active tiZANidine (ZANAFLEX) 2 mg tablet Take 2 mg by mouth every 6 (six) hours as needed for muscle spasms Active traMADol (ULTRAM) 50 mg tablet Take 50 mg by mouth every 6 (six) hours as needed for pain Active donepezil (ARICEPT) 10 mg tablet Take 10 mg by mouth nightly Active gabapentin (NEURONTIN) 100 mg capsule Take 300 mg by mouth 3 (three) times a day Active DULoxetine DR (CYMBALTA) 60 mg capsule Take 1 capsule (60 mg total) by mouth daily 30 capsule 11 0 Active Additional Information Patient not taking.Reported on 08/11/2019 senna-docusate (PERICOLACE) 8.6-50 mg Take 1 tablet by mouth nightly 0 Active Additional Information Patient not taking.Reported on 08/11/2019 acetaminophen 500 mg capsule Take 2 capsules (1,000 mg total) by mouth every 6 (six) hours 30 tablet 0 Active Active Problems Problem Noted Date Diagnosed Date Subdural hematoma 07/28/2019 Closed fracture of multiple ribs of left side Pneumothorax on right 07/28/2019 Acute traumatic pain 07/28/2019 Medical History Medical History Date Comments Dementia (HCC) Rheumatoid arthritis (HCC) Osteoporosis Thyroid disease Dementia (HCC) Social History Tobacco Use Types Packs/Day Years Used Date Smoking Tobacco: Never Smokeless Tobacco: Never Alcohol Use Standard Drinks/Week Comments Yes 0 (1 standard drink = 0.6 oz pur e alcohol) Social Connection and Isolat ion Panel [NHANES] Answer Date Recorded Frequency of Communication w ith Friends and Family Twice a week 07/28/2019 Frequency of Social Gatherin gs with Friends and Family Twice a week 07/28/2019 Attends [employer] Services 1 to 4 times per year 07/28/2019 Active Member of Clubs or Organizations Yes 07/28/2019 Attends Club or Organization Meetings More than 4 times per year 07/28/2019 Marital Status 07/28/2019 AUDIT-C Answer Date Recorded Frequency of Alcohol Consumption Not asked 08/11/2019 Average Number of Drinks 1 or 2 020 Frequency of Binge Drinking Never 07/31 Overall Financial Resource Strain (CARDIA) Answe r Date Recorded Difficulty of Paying Living Expenses Not hard at all 07/28/2019 Hunger Vital Sign Answer Date Recorded Worried About Running Out of Food in the Last Ye ar Never true 07/28/2019 Ran Out of Food in the Last Year Never true 07/28/2019 PRAPARE - Transportation Answer Date Re corded Lack of Transportation (Medical) No 07/28/2019 Lack of Transportation (Non-Medical) No 07/28/2019 Personal Safety Answer Date Recorded Getting School Help Needed Not on file 09/13 Comments No Sex and Gender Information Value Date Recorded Sex Assigned at Not on file Legal Sex Female 3:57 AM GENERAL ACCOUNTING MANAGER Gender Identity Not on file Sexual Orientation Not on file Obstetrics History Last Filed Vital Signs Vital Sign [place] Time Taken Comments Blood Pressure 146/60 08/11/2019 10:23 AM GENERAL ACCOUNTING MANAGER Pulse 82 08/11/2019 10:23 AM GENERAL ACCOUNTING MANAGER Temperature 36.6 C (97.8 F) 08/11/2019 10:23 AM GENERAL ACCOUNTING MANAGER Respiratory Rate 20 08/11/2019 10:2 3 AM GENERAL ACCOUNTING MANAGER Oxygen Saturation 97% 08/11/2019 10: 23 AM GENERAL ACCOUNTING MANAGER Inhaled Oxygen Concentration - - Weight 72.1 kg (158 lb 14.4 oz) 020 10:23 AM GENERAL ACCOUNTING MANAGER Height 172.7 cm (5' 8 ) 08/11/2019 10:2 3 AM GENERAL ACCOUNTING MANAGER Body Mass Index 24.16 08/11/2019 10:23 AM GENERAL ACCOUNTING MANAGER Plan of Treatment Not on file Insurance MEDICARE FOR LIFE MEDICARE FOR LIFE Advance Directives For more information, please contact: [phone] * Full Code (Latest Code Status on File) Date Activated Date Inactivated Comments 07/26/2019 1:34 AM 07/30/2019 4:51 PM Care Teams Insight Leader Relationship Specialty Start Date End Date Patricia Lassiter MD [address] [facility] [address] [place] [address] PCP - General 07/31/15
--- OUTSIDE RECORDS SUMMARY | 2024-08-05 15:16 | XMS_ITS | Referral Summary ---
Author Organization [facility] [address] Address [address] [place] [address] Care Team Providers Care Foreclosure Paralegal Name Role Phone Patricia Lassiter MD Primary Care Provider Allergies Active Allergy Reactions Criticality Noted Date Comments Sulfa (Sulfonamide Antibiotics) Unknown 07/01 Trimethoprim Unknown 07/25/2019 Medications folic acid (FOLVITE) 1 mg tablet Take 1 mg by mouth daily Active levothyroxine (SYNTHROID) 88 mcg tablet Take 88 mcg by mouth intervention nurse before breakfast Active memantine (NAMENDA) 5 mg [...] on right 07/28/2019 Acute traumatic pain 07/28/2019 Social History Tobacco Use Types Packs/Day Years [...] and Family Twice a week 07/28/2019 Attends [employer] 1 to 4 times per year [...] on file Legal Sex Female 3:57 AM 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 RANGE 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 Gender Identity Not on file Sexual Orientation Not on file Last Filed Vital Signs Vital Sign Reading Time Taken Comments Blood Pressure 146/60 08/11/2019 10:23 AM FIRE RANGE TECHNICIAN Pulse 82 08/11/2019 10:23 AM FIRE RANGE TECHNICIAN Temperature 36.6 C (97.8 F) 08/11/2019 10:23 AM FIRE RANGE TECHNICIAN Respiratory Rate 20 08/11/2019 10:2 3 AM FIRE RANGE TECHNICIAN Oxygen Saturation 97% 08/11/2019 10: 23 AM FIRE RANGE TECHNICIAN Inhaled Oxygen Concentration - - Weight 72.1 kg (158 lb 14.4 oz) 020 10:23 AM FIRE RANGE TECHNICIAN Height 172.7 cm (5' 8 ) 08/11/2019 10:2 3 AM FIRE RANGE TECHNICIAN Body Mass Index 24.16 08/11/2019 10:23 AM FIRE RANGE TECHNICIAN Plan of Treatment Not on file Insurance MEDICARE [employer] MEDICARE FOR LIFE Advance Directives For more information, please contact: [phone] * Full Code (Latest Code Status on File) Date Activated Date Inactivated Comments 07/26/2019 1:34 AM 07/30/2019 4:51 PM Care Teams Foreclosure Paralegal Relationship Specialty Start Date End Date Patricia Lassiter MD [address] [facility] [address] [place] [address] PCP - General 07/31/15
--- OUTSIDE RECORDS SUMMARY | 2024-08-05 15:16 | XMS_ITS | Clinical Summary ---
Author Organization [facility] Address [address] [place] [address] Care Team Providers Care Shale Miner Name Role Phone Ras Stanford MD Unavailable [phone] Patricia Lassiter MD Primary Care Provider + Source Comments [facility],non-owned Affiliates and Associated Physician Practices is amultiple site organization consisting of ambulatory clinics and hospital sitesin [place], [place], [place] and [place]. This disclosure is being madepursuant to the Care Everywhere program and may not contain all information available regarding this patient. Last updated 18.[facility] [employer] Allergies Active Allergy Reactions Criticality Noted Date Comments Sulfamethoxazole W-Trimethoprim Rash Low 12/28 Medications * Be aware that medications may not be up to date on this document. Always verify current medications with the patient. Medication Sig Dispensed Refills Start Date End Date Status raloxifene (EVISTA) 60 MG tablet Take 60 mg by mouth once daily. Active Calcium Carbonate-Vitamin D (CALTRATE 600+D PO) Take 1 Tab by mouth 2 times daily. Active Lactobacillus (ACIDOPHILUS PO) Take 1 Cap by mouth once daily. Active iron polysaccharides (NIFEREX 150) 150 MG capsule Take 1 Cap by mouth once daily. 30 Cap 0 10/30/2014 Active gabapentin (NEURONTIN) 100 MG capsule Take 200 mg by mouth 3 times daily Active azelastine (ASTELIN) 0.1 % nasal spray as needed 09/16/2017 Active donepezil (ARICEPT) 5 MG tablet every evening 08/12/2017 Active valsartan (DIOVAN) 80 MG tablet once daily 08/12/2017 Active HYDROcodone-acetaminoph en (NORCO) 10-325 MG tablet Take 0.5-1 tablets by mouth every 6 hours as needed for Pain 60 tablet 11/28/2017 Active pantoprazole EC (PROTONIX) 40 MG tablet Take 40 mg by mouth once daily 12/08/2017 Active levothyroxine (SYNTHROID) 100 MCG tablet Take 100 mcg by mouth once daily 12/18/2017 Active HYDROcodone-acetaminoph en (NORCO) 5-325 MG tabletIndications:After care following right knee joint replacement surgery Take 1-2 tablets by mouth every 6 hours as needed for Pain 40 tablet 12/23/2017 Active cephalexin (KEFLEX) 500 MG capsule 01/12/2018 Active cyclobenzaprine (FLEXERIL) 5 MG tablet 01/12/2018 Ac tive Active Problems Problem Noted Date Diagnosed Date Presence of left artificial knee joint 8 Primary osteoarthritis of right knee 07/08/2017 Social History Tobacco Use Types Packs/Day Years Used Date Smoking Tobacco: Never Smokeless Tobacco: Never Tobacco Cessation:Counseling Given: No Alcohol Use Standard Drinks/Week Comments Yes 0 (1 standard drink = 0.6 oz pur e alcohol) Sex and Gender Information Value Date Recorded Sex Assigned at Not on file Gender Identity Not on file Sexual Orientation Not on file Last Filed Vital Signs Vital Sign Reading Time Taken Comments Blood Pressure 114/60 11/13/2017 8:00 AM CDT Pulse 84 11/13/2017 8:00 AM CDT Temperature 36.9 C (98.4 F) 11/13/2017 8:00 AM CDT Respiratory Rate 18 11/13/2017 8:00 AM CDT Oxygen Saturation 94% 11/13/2017 8:00 AM CDT Inhaled Oxygen Concentration - - Weight 68 kg (150 lb) 11/10/2017 7:39 AM CDT Height 172.7 cm (5' 8 ) 11/10/2017 7:39 AM CDT Body Mass Index 22.81 11/10/2017 7:39 AM CDT Plan of Treatment Health Maintenance Due Date Last Done Comments BONE DENSITY TESTING 1935 MEDICARE AWV 12 MONTHS 1935 DTAP/TDAP/TD VACCINES (1 - Tdap) 10/10/1955 PNEUMOCOCCAL VACCINE 50+ (1 of 1 - PCV) 1986 ZOSTER VACCINE (1 of 2) 1986 Respiratory Syncytial Virus (RSV) Vaccine Pt: or over 60 yrs (1 - 1-dose 75+ series) 10/10/2011 COVID-19 VACCINE (2023-2 5 season) 2024 INFLUENZA VACCINE (#1) 2024 DEPRESSION SCREENING 06/30/2024 HEPATITIS B VACCINE Aged Out No longe r eligible based on patient's age to complete this topic HIB VACCINE Aged Out No longer eligi ble based on patient's age to complete this topic HPV VACCINE Aged Out No longer eligi ble based on patient's age to complete this topic MENINGOCOCCAL (Group B) VACCINE Aged Out No longer eligible based on patient's age to complete this topic MENINGOCOCCAL VACCINE Aged Out No alejandra joao eligible based on patient's age to complete this topic Medical Devices Implanted Type Area International Accountant Device Identifier Shelf Expiration Date Model / Serial / Lot Rickey Bone [place] Hv Implanted:Qty: 1 on 10/27/2014 by Ras Stanford MD at [facility] Left: [employer]nee [employer] 06/28/2016 [id number] / / [id number] Kn Ins Vangurd Fem Cocr Intlok L 67.5mm Implanted:Qty: 1 on 10/27/2014 by Ras Stanford MD at [facility] Left: [employer]nee [employer] 09/02/2024 [id number] / / [id number] Tibial I Beam Fix Bar 75mm Implanted:Qty: 1 on 10/27/2014 by Ras Stanford MD at [facility] Left: [employer]nee [employer] 06/28/2022 [id number] / / [id number] Butn Pat Arcom Wire Polyeth Sm 31 X 8mm Implanted:Qty: 1 on 10/27/2014 by Ras Stanford MD at [facility] Left: Knee [employer] 09/16/2019 [id number] / / [id number] Vanjoaquinad Ant Stblzd Brg 10mm X 75mm Implanted:Qty: 1 on 10/27/2014 by Ras Stanford MD at [facility] Left: Knee [employer] 05/29/2019 [id number] / / [id number] Brng [id number] Vngrd Arcm Kn Ant Stab Implanted:Qty: 1 on 11/10/2017 by Ras Stanford MD at [facility] Right: Knee [employer] 09/09/2022 [id number] / / [id number] Rickey Bone [place]-G Hv 40/20 Implanted:Qty: 1 on 11/10/2017 by Ras Stanford MD at [facility] Right: Knee [employer] 11/27/2018 600-15-100 / / [id number] Cmpnt Fem Kn Rt Cr Cmnt Prm Vngrd Intlk Implanted:Qty: 1 on 11/10/2017 by Ras Stanford MD at [facility] Right: Knee [employer] 09/18/2027 [id number] / / [id number] Tray Tib 71mm Kn Cocr I Beam Implanted:Qty: 1 on 11/10/2017 by Ras Stanford MD at [facility] Right: Knee [employer] 07/22/2027 [id number] / / [id number] Cmpnt Ptlr 28mm 1 Pg Wire Ascnt Arcm Kn Implanted:Qty: 1 on 11/10/2017 by Ras Stanford MD at [facility] Right: Knee [employer] 10/20/2022 [id number] / / [id number] Additional Health Concerns Infection Onset Date Last Indicated MRSA 10/28/2017 10/28/2017 Advance Directives * Full Code (Latest Code Status on File) Date Activated Date Inactivated Comments 11/10/2017 1:09 PM 11/13/2017 1:49 PM * Full Code Date Activated Date Inactivated Comments 10/27/2014 1:27 PM 10/30/2014 12:25 PM Care Teams Shale Miner Relationship Specialty Start Date End Date Patricia Lassiter MD [address] [place] [address] PCP - General Family Medicine 10/15/13 Ras Stanford MD Orthopedic Surgery 01/10/12
--- OUTSIDE RECORDS SUMMARY | 2024-08-05 15:16 | XMS_ITS | Clinical Summary ---
Author Organization [facility] Address [address] [place], [place] [id number] Care Team Providers Care Genetic Technologist Name Role Phone Unavailable Primary Care Provider Unavailabl e Social History Tobacco Use Types Packs/Day Years Used Date Smoking Tobacco: Never Assessed Comments Unknown Sex and Gender Information Value Date Recorded Sex Assigned at Not on file Legal Sex Female 8:19 PM CDT Gender Identity Not on file Sexual Orientation Not on file Plan of Treatment Health Maintenance Due Date Last Done Comments DTaP, Tdap and Td Vaccines ( 1 - Tdap) 10/10/1955 Zoster Vaccines (1 of 2) 1986 Pneumococcal Vaccine: 65+ Ye ars (1 of 1 - PCV) 2001 RSV Immunization or 60+ Years (1 - 1-dose 75+ series) 10/10/2011 COVID-19 Vaccine (2023-2 5 season) 2024 Influenza Adult (#1) 2024 Meningococcal B Vaccine Aged Out No l onger eligible based on patient's age to complete this topic Meningococcal Vaccine Aged Out No alejandra joao eligible based on patient's age to complete this topic RSV Immunizations Under 20 Months Aged Out No longer eligible based on patient's age to complete this topic
--- OUTSIDE RECORDS SUMMARY | 2024-08-05 15:16 | XMS_ITS | Encounter Summary ---
Author Organization [facility] Address [address] [place] [address] Care Team Providers Care Senior Information Security Consultant Name Role Phone Ras Stanford MD Unavailable Patricia Lassiter MD Primary Care Provider + Encounter Details Date Type Department Care Team (Late st Contact Info) Description 10/28/2017 [facility] Outpatient Visit [facility] [address] [place] [address] [place] [id number] [place] [address] Social History Tobacco Use Types Packs/Day Years Used Date Smoking Tobacco: Never Smokeless Tobacco: Never Alcohol Use Standard Drinks/Week Comments Not Asked 0 (1 standard drink = 0.6 oz pur e alcohol) Sex and Gender Information Value Date Recorded Sex Assigned at Not on file Gender Identity Not on file Sexual Orientation Not on file documented as of this encounter Functional Status Functional Status Response Date of Assess ment Is person deaf or have serious hearing difficult y? No 10/27/2014 Is person blind or have serious difficulty seein g? No 10/27/2014 Does person have serious dif ficulty walking/climbing stairs? No 10/27/2014 Does person have difficulty dressing/bathing? No 10/27/2014 Does person have difficulty doing errands alone? No 10/27/2014 Cognitive Status Response Date of Assessm ent Does person have difficulty concentrating/remembering/making decisions? No 10/27/2014 documented as of this encounter Plan of Treatment Not on file documented as of this encounter Visit Diagnoses Not on filedocumented in this encounter Additional Health Concerns Infection Onset Date Last Indicated Resolved Time MRSA 10/28/2017 10/28/2017 documented as of this encounter Care Teams Senior Information Security Consultant Relationship Specialty Start Date End Date Patricia Lassiter MD [address] [place] [address] PCP - General Family Medicine 10/15/13 Ras Stanford MD Orthopedic Surgery 01/10/12 documented as of this encounter
--- OUTSIDE RECORDS SUMMARY | 2024-08-05 15:16 | XMS_ITS | Referral Summary ---
Author Organization [facility] Address [address] [place] [address] Care Team Providers Care Hander In Name Role Phone Ras Stanford MD Unavailable Patricia Lassiter MD Primary Care Provider + Source Comments [facility],non-owned Affiliates and Associated Physician Practices is amultiple site organization consisting of ambulatory clinics and hospital sitesin [place], [place], [place] and [place]. This disclosure is being madepursuant to the Care Everywhere program and may not contain all information available regarding this patient. Last updated 18.[facility] Allergies Active Allergy Reactions Criticality Noted Date Comments Sulfamethoxazole W-Trimethoprim Rash Low 12/28 Medications * Be aware that medications may not be up to date on this document. Alwaysverify current medications with the patient. Medication Sig [...] Mass Index 22.81 11/10/2017 7:39 AM CDT Functional Status Functional Status Response Date of Assess ment Is person deaf or have serious hearing difficult y? No 11/10/2017 Is person blind or have serious difficulty seein g? No 11/10/2017 Does person have serious dif ficulty walking/climbing stairs? Yes 11/10/2017 Does person have difficulty dressing/bathing? No 11/10/2017 Does person have difficulty doing errands alone? No 11/10/2017 Cognitive Status Response Date of Assessm ent Does person have difficulty concentrating/remembering/making decisions? No 11/10/2017 Plan of Treatment Not on file Medical Devices Implanted Type Area Surgical Attendant Device Identifier Shelf Expiration Date Model / Serial / Lot Rickey Bone [place] Hv Implanted:Qty: 1 on 10/27/2014 by Ras Stanford MD at [facility] Left: Knee [employer] 06/28/2016 [id number] / / [id number] Kn Ins Vangurd Fem Cocr Intlok L 67.5mm Implanted:Qty: 1 on 10/27/2014 by Ras Stanford MD at [facility] Left: [employer]nee [employer] 09/02/2024 [id number] / / [id number] Ty Tibial I Beam Fix Bar 75mm Implanted:Qty: 1 on 10/27/2014 by Ras Stanford MD at [facility] Left: [employer] 06/28/2022 [id number] / / [id number] Butn Pat Arcom Wire Polyeth Sm 31 X 8mm Implanted:Qty: 1 on 10/27/2014 by Ras Stanford MD at [facility] Left: [employer]nee [employer] 09/16/2019 [id number] / / [id number] Vangrd Ant Stblzd Brg 10mm X 75mm Implanted:Qty: 1 on 10/27/2014 by Ras Stanford MD at [facility] Left: [employer]nee [employer] 05/29/2019 [id number] / / [id number] Brng [id number] Vngrd Arcm Kn Ant Stab Implanted:Qty: 1 on 11/10/2017 by Ras Stanford MD at [facility] Right: Knee [employer] 09/09/2022 [id number] / / [id number] Rickey Bone [place]-G Hv 40/20 Implanted:Qty: 1 on 11/10/2017 by Ras Stanford MD at [facility] Right: Knee [employer] 11/27/2018 [id number] / / [id number] Cmpnt Fem Kn Rt Cr Cmnt Prm Vngrd Intlk Implanted:Qty: 1 on 11/10/2017 by Ras Stanford MD at [facility] Right: Knee [employer] 09/18/2027 [id number] / / [id number] Tray Tib 71mm Kn Cocr I Beam Implanted:Qty: 1 on 11/10/2017 by Ras Stanford MD at [facility] Right: Knee [employer] 07/22/2027 [id number] / / [id number] Cmpnt Ptlr 28mm 1 Pg Wire Ascnt Arcm Kn Implanted:Qty: 1 on 11/10/2017 by Rsa Stanford MD at [facility] Right: Knee [employer] 10/20/2022 [id number] / / [id number] Administered Medications Additional Health Concerns Infection Onset Date Last Indicated MRSA 10/28/2017 10/28/2017 Advance Directives * Full Code (Latest Code Status on File) Date Activated Date Inactivated Comments 11/10/2017 1:09 PM 11/13/2017 1:49 PM * Full Code Date Activated Date Inactivated Comments 10/27/2014 1:27 PM 10/30/2014 12:25 PM Care Teams Hander In Relationship Specialty Start Date End Date Patricia Lassiter MD [address] [place] [address] PCP - General Family Medicine 10/15/13 Ras Stanford MD Orthopedic Surgery 01/10/12
--- OUTSIDE RECORDS SUMMARY | 2024-08-05 15:16 | XMS_ITS | Patient Health Summary ---
Author Organization [facility] Address [address] [place] [address] Care Team Providers Care Transmission Line Engineer Name Role Phone Ras Stanford MD Unavailable [phone] Patricia Lassiter MD Primary Care Provider + Note from [facility],non-owned Affiliates and Associated Physician Practices is amultiple site organization consisting of ambulatory clinics and hospital sitesin [place] and [place]. This disclosure is being madepursuant to the Care Everywhere program and may not contain all information available regarding this patient. Last updated 18.[facility] Allergies * Sulfamethoxazole W-Trimethoprim(Rash) -Low Criticality Medications * Be aware that medications may not be up to date on this document. Alwaysverify current medications with the patient. * raloxifene (EVISTA) 60 MG tablet Take 60 mg by mouth once daily. * Calcium Carbonate-Vitamin D (CALTRATE 600+D PO) Take 1 Tab by mouth 2 times daily. * Lactobacillus (ACIDOPHILUS PO) Take 1 Cap by mouth once daily. * iron polysaccharides (NIFEREX 150) 150 MG capsule(Started 10/30/2014) Take 1 Cap by mouth once daily. * gabapentin (NEURONTIN) 100 MG capsule Take 200 mg by mouth 3 times daily * azelastine (ASTELIN) 0.1 % nasal spray(Started 09/16/2017) as needed * donepezil (ARICEPT) 5 MG tablet(Started 08/12/2017) every evening * valsartan (DIOVAN) 80 MG tablet(Started 08/12/2017) once daily * HYDROcodone-acetaminophen (NORCO) 10-325 MG tablet(Started 11/28/2017) Take 0.5-1 tablets by mouth every 6 hours as needed for Pain * pantoprazole EC (PROTONIX) 40 MG tablet(Started 12/08/2017) Take 40 mg by mouth once daily * levothyroxine (SYNTHROID) 100 MCG tablet(Started 12/18/2017) Take 100 mcg by mouth once daily * HYDROcodone-acetaminophen (NORCO) 5-325 MG tablet(Started 12/23/2017) Take 1-2 tablets by mouth every 6 hours as needed for Pain * cephalexin (KEFLEX) 500 MG capsule(Started 01/12/2018) * cyclobenzaprine (FLEXERIL) 5 MG tablet(Started 01/12/2018) Active Problems Problem Noted Date Diagnosed Date [...] Mass Index 22.81 11/10/2017 7:39 AM CDT Medical Devices Implanted Type Area Finish Carpenter Device Identifier Shelf Expiration Date Model / Serial / Lot Rickey Bone Vancleave Hv Implanted:Qty: 1 on 10/27/2014 by Ras Stanford MD at [facility] Left: Knee [employer] 06/28/2016 [id number] / / [id number] Kn Ins Vangurd Fem Cocr Intlok L 67.5mm Implanted:Qty: 1 on 10/27/2014 by Ras Stanford MD at [facility] Left: Knee [employer] 09/02/2024 [id number] / / [id number] Tibial I Beam Fix Bar 75mm Implanted:Qty: 1 on 10/27/2014 by Ras Stanford MD at [facility] Left: Knee [employer] 06/28/2022 [id number] / / [id number] Butn Pat Arcom Wire Polyeth Sm 31 X 8mm Implanted:Qty: 1 on 10/27/2014 by Ras Stanford MD at [facility] Left: Knee [employer] 09/16/2019 [id number] / / [id number] Vangrd Ant Stblzd Brg 10mm X 75mm Implanted:Qty: 1 on 10/27/2014 by Ras Stanford MD at [facility] Left: Knee [employer] 05/29/2019 [id number] / / [id number] Brng [id number] Vngrd Arcm Kn Ant Stab Implanted:Qty: 1 on 11/10/2017 by Ras Stanford MD at [facility] Right: Knee Mary [employer] 09/09/2022 [id number] / / [id number] Rickey Bone Vancleave-G Hv 40/20 Implanted:Qty: 1 on 11/10/2017 by Ras Stanford MD at [facility] Right: Knee [employer] 11/27/2018 [id number] / / [id number] Cmpnt Fem Kn Rt Cr Cmnt Prm Vngrd Intlk Implanted:Qty: 1 on 11/10/2017 by Ras Stanford MD at [facility] Right: Knee [employer] 09/18/2027 [id number] / / [id number] Tray Tib 71mm Kn Cocr I Beam Implanted:Qty: 1 on 11/10/2017 by Ras Stanford MD at [facility] Right: Knee [employer] 07/22/2027 [id number] / / [id number] Cmpnt Ptlr 28mm 1 Pg Wire Ascnt Arcm Kn Implanted:Qty: 1 on 11/10/2017 by Ras Stanford MD at [facility] Right: Knee [employer] 10/20/2022 [id number] / / [id number] Procedures * XR KNEE RIGHT 3VW(Performed 12/23/2017) Performed for Aftercare following right knee joint replacement surgery * HGB HCT PANEL(Performed 11/12/2017) * HGB HCT PANEL(Performed 11/11/2017) * ENDOTRACHEAL TUBE NOTE(Performed 11/10/2017) * ARTHROPLASTY TOTAL KNEE(Performed 11/10/2017) * CBC W AUTO DIFFERENTIAL(Performed 10/28/2017) Performed for Preoperative examination * COMPREHENSIVE METABOLIC PANEL(Performed 10/28/2017) Performed for Preoperative examination * CULTURE MSSA/MRSA(Performed 10/28/2017) Performed for Preoperative examination * EKG 12-LEAD(Performed 10/28/2017) Performed for Preoperative examination * XR KNEE BILAT 3VW(Performed 07/08/2017) Performed for Osteoarthrosis involving lower leg * XR KNEE LEFT 3VW(Performed 12/08/2014) Performed for Osteoarthrosis, unspecified whether generalized or localized, lower leg * CARDIAC EKG ORDER(Performed 11/02/2014) * LAB RESULTS ORDER(Performed 11/02/2014) * HGB HCT PANEL(Performed 10/29/2014) * HGB HCT PANEL(Performed 10/28/2014) * ARTHROPLASTY TOTAL KNEE(Performed 10/27/2014) Performed for Osteoarthrosis, unspecified whether generalized or localized, lower leg * NEURAXIAL BLOCK(Performed 10/27/2014) * CULTURE MSSA/MRSA(Performed 10/05/2014) Performed for Preoperative examination * XR KNEE BILAT 3VW(Performed 09/22/2014) Performed for Osteoarthrosis, unspecified whether generalized or localized, lower leg * XR KNEE BILAT 2VW OR LESS(Performed 10/15/2013) Performed for Osteoarthrosis, unspecified whether generalized or localized, lower leg * XR KNEE LEFT 3VW(Performed 01/19/2013) Performed for Osteoarthrosis, Unspecified Whether Generalized Or Localized, Lower Leg Results * XR KNEE RIGHT 3VW (12/23/2017 11:49 AM CDT) Anatomical Region Laterality Modality Lower Extremity Computed Radiogr aphy Narrative 12/24/2017 3:38 PM CDT Rosie Hudson RT(R) 12/24/2017 3:38 PM See progress notes for results Ras Stanford MD DIAGNOSTIC IMAGING O RDERABLES * (ABNORMAL) HGB HCT PANEL (11/12/2017 3:53 AM CDT) Only the most recent of4 resultswithin the time period is included. Hemoglobin 9.5(L) 12.0 - 15.6 gm/dL 11/12/2017 4:17 AM CDT [facility] Hematocrit 28.9(L) 35.9 - 45.5 % 11/12/2017 4:17 AM CDT [facility] Blood BLOOD SPECIMEN / Unknown Venipuncture / Unknown 11/12/2017 3:53 AM CDT 11/12/2017 4:10 AM CDT Ras Stanford MD LAB - HEMATOLOGY ORD ERABLES [facility] [id number] [place], [place] [id number] * (ABNORMAL) CULTURE MSSA/MRSA (10/28/2017 9:39 AM CDT) Only the most recent of2 resultswithin the time period is included. Culture Growth of Staphylococcus aureus methicillin-resist ant (MRSA)(A) SRAVAN 10/30/2017 7:58 AM CDT [facility] Microbiology SPECIMEN FROM NASAL FOSSAE / Unknown Collection / Unknown 10/28/2017 9:39 AM CDT 10/28/2017 10:46 AM CDT Narrative [facility] - 10/30/2017 7:58 AM CDT Methicillin-resistant Staphylococci (MRSA) are resistant to all currently available beta-lactam antibiotics with the exception of the newer cephalosporins with anti-MRSA activity. Contact precautions required. Ras Stanford MD LAB - MICROBIOLOGY O RDERABLES [facility] [address] [place] [address], [facility] [phone] * (ABNORMAL) CBC W AUTO DIFFERENTIAL (10/28/2017 9:39 AM CDT) WBC 8.4 4.4 - 10.7 x10E9/L 10/28/2017 10:52 AM CDT [facility] WBC Corrected x10E9/L 10/28/2017 10:52 AM CDT [facility] RBC 4.09 3.80 - 5.20 x10E12/L 10/28/2017 10:52 AM CDT [facility] Hemoglobin 12.2 12.0 - 15.6 gm/dL 10/28/2017 10:52 AM CDT [facility] Hematocrit 37.3 35.9 - 45.5 % 10/28/2017 10:52 AM CDT [facility] MCV 91.2 80.7 - 98.3 fl 10/28/2017 10:52 AM CDT [facility] MCH 29.8 26.7 - 34.0 pg 10/28/2017 10:52 AM CDT [facility] MCHC 32.7 30.8 - 35.9 gm/dL 10/28/2017 10:52 AM CDT [facility] Platelet Count 245 153 - 416 x10E9/L 10/28/2017 10:52 AM CDT [facility] RDW-CV 12.5 12.1 - 14.9 % 10/28/2017 10:52 AM CDT [facility] MPV 11.4 9.4 - 12.9 fl 10/28/2017 10:52 AM CDT [facility] Neutrophils % 66.7 44.0 - 73.0 % 10/28/2017 10:52 AM CDT [facility] Lymphocytes % 17.8(L) 20.0 - 43.0 % 10/28/2017 10:52 AM CDT [facility] Monocytes % 14.0(H) 5.0 - 13.0 % 10/28/2017 10:52 AM CDT [facility] Eosinophils % 0.9 0.0 - 6.0 % 10/28/2017 10:52 AM CDT [facility] Basophils % 0.4 0.0 - 2.0 % 10/28/2017 10:52 AM CDT [facility] Immature Granulocytes 0.2 0 - 1 % 10/28/2017 10:52 AM CDT [facility] Neutrophil Absolute 5.63 2.01 - 7.14 x10E9/L 10/28/2017 10:52 AM CDT [facility] Lymphocytes Absolute 1.50 1.07 - 3.94 x10E9/L 10/28/2017 10:52 AM CDT [facility] Monocytes Absolute 1.18(H) 0.26 - 1.07 x10E9/L 10/28/2017 10:52 AM CDT [facility] Eosinophils Absolute 0.08 0 - 0.47 x10E9/L 10/28/2017 10:52 AM CDT [facility] Basophils Absolute 0.03 0 - 0.08 x10E9/L 10/28/2017 10:52 AM CDT [facility] Immature Granulocytes Absolute 0.02 0.00 - 0.06 x10E9/L 10/28/2017 10:52 AM CDT [facility] nRBC Auto 0 /100 WBC 10/28/2017 10:52 AM CDT [facility] Blood BLOOD SPECIMEN / Unknown Venipuncture / Unknown 10/28/2017 9:39 AM CDT 10/28/2017 10:46 AM CDT Ras Stanford MD LAB - HEMATOLOGY ORD ERABLES [facility] [address] [place] [address] * (ABNORMAL) COMPREHENSIVE METABOLIC PANEL (10/28/2017 9:39 AM CDT) [facility] Glucose 81 74 - 106 mg/dL 10/28/2017 11:05 AM CDT [facility] Sodium 142 136 - 145 mmol/L 10/28/2017 11:05 AM CDT [facility] Potassium 3.7 3.5 - 5.1 mmol/L 10/28/2017 11:05 AM CDT [facility] Chloride 106 98 - 107 mmol/L 10/28/2017 11:05 AM CDT [facility] CO2 28 22 - 31 mmol/L 10/28/2017 11:05 AM CDT [facility] Calcium 9.0 8.5 - 10.1 mg/dL 10/28/2017 11:05 AM CDT [facility] Anion Gap 8 8 - 16 mmol/L 10/28/2017 11:05 AM CDT [facility] BUN 24(H) 7 - 21 mg/dL 10/28/2017 11:05 AM CDT [facility] Creatinine 1.10 0.50 - 1.30 mg/dL 10/28/2017 11:05 AM CDT [facility] Alkaline Phosphatase 50 38 - 126 U/L 10/28/2017 11:05 AM CDT [facility] ALT 17 13 - 61 U/L 10/28/2017 11:05 AM CDT [facility] AST 21 5 - 40 U/L 10/28/2017 11:05 AM CDT [facility] Protein Total 7.4 6.4 - 8.2 gm/dL 10/28/2017 11:05 AM CDT [facility] Albumin 3.4 3.4 - 5.0 gm/dL 10/28/2017 11:05 AM CDT [facility] Bilirubin Total 0.4 0.2 - 1.0 mg/dL 10/28/2017 11:05 AM CDT [facility] eGFR by MDRD 48 mL/min/1.7 3m2 10/28/2017 11:05 AM CDT [facility] eGFR by MDRD 58 mL/min/1.7 3m2 10/28/2017 11:05 AM CDT [facility] Blood BLOOD SPECIMEN / Unknown Venipuncture / Unknown 10/28/2017 9:39 AM CDT 10/28/2017 10:46 AM CDT Ras Stanford MD LAB - CHEMISTRY RITU CARL [facility] Organization Address City/State/ZIP Co de Phone Number [facility] [address] [place] [address] * EKG 12-LEAD (10/28/2017 8:58 AM CDT) Ventricular Rate 78 BPM [facility] Atrial Rate 78 BPM [facility] P-R Interval 132 ms [facility] QRS Duration ms 80 ms [facility] Q-T Interval ms 408 ms [facility] QTC Calculation (Bezet) 465 ms [facility] Calculated P Whitmer 14 degrees [facility] Calculated R Whitmer -17 degrees [facility] Calculated T Whitmer 65 degrees [facility] Interpretation EKG Normal sinus rhythm Normal ECG No previous ECGs available Confirmed by SCAR MEDELLIN MD ([id number]) on 10/28/2017 1:28:57 PM [facility] 10/28/2017 8:58 AM CDT 10/28/2017 1:28 PM CDT Ras Stanford MD ECG ORDERABLES [facility] * XR KNEE BILAT 3 VIEWS (07/08/2017 9:50 AM CHIEF PASSENGER SHIP STEWARD/STEWARDESS) Only the most recent of2 resultswithin the time period is included. Anatomical Region Laterality Modality Lower Extremity Computed Radiogr aphy Narrative 07/08/2017 4:03 PM CHIEF PASSENGER SHIP STEWARD/STEWARDESS Gerda Gale, RT(R) 07/08/2017 4:03 PM See Chart For Xray Report Neetu Huntley PA-C DIAGNOSTIC IM AGING ORDERABLES * XR KNEE 3 VW LEFT (12/08/2014 2:16 PM CDT) Only the most recent of2 resultswithin the time period is included. Anatomical Region Laterality Modality Lower Extremity Radiographic Nati ging Narrative 12/08/2014 2:27 PM CDT Concepcion Gallo, RT(R) 12/08/2014 2:27 PM SEE PROGRESS NOTES FOR FINAL RESULT Ras Stanford MD DIAGNOSTIC IMAGING O RDERABLES * CARDIAC EKG ORDER (11/02/2014 9:06 PM CDT) Narrative 11/02/2014 9:06 PM CDT Ordered by an unspecified provider. Scanned Document CARDIAC SERVICES ORD ERABLES * LAB RESULTS ORDER (11/02/2014 9:05 PM CDT) Narrative 11/02/2014 9:05 PM CDT Ordered by an unspecified provider. Scanned Document LAB - THERAPEUTIC DR ESTEFANI MONITORING ORDERABLES * NEURAXIAL BLOCK (10/27/2014 10:56 AM CDT) Narrative Davin Giraldo, SPECIAL EVENT ASSISTANT-BACTERIOLOGY PROFESSOR - 10/27/2014 10:56 AM CDT aDvin Giraldo APRN-BACTERIOLOGY PROFESSOR 10/27/2014 10:56 AM NEURAXIAL BLOCK Patient Location: OR Pre Procedure Indication: surgical anesthesia Anticoagulation /Antithrombosis Status Confirmed: Yes Preanesthetic Checklist: patient identified, IV checked, site marked, risks and benefits discussed, surgical consent verified, monitors and equipment checked, pre-op evaluation done, informed consent obtained and questions answered / anesthesia plan accepted Monitors: BP and Pulse Ox Patient Condition: sedated, meaningful contact maintained Patient Position: sitting Procedure Block Performed: spinal Prep: Betadine Sterile Field: mask, cap/hat, sterile field established and sterile gloves Approach: midline Skin Numbed with: lidocaine 1% Spinal Needle Type: Quincke Needle Gauge: 22 G Needle Length: 3.5 in Placement Site: L2-3 Number of Attempts: 3 CSF: free flow and aspiration before injection Local Anesthetic: bupivacaine 0.75% in dextrose 2 Spinal Additive: fentanyl 25 mcg Events CSF return injection not painful Degree of Difficulty: marked Position Post Procedure: supine Vital signs monitored and stable throughout. See Anesthesia Intraop record for details. Block Performed by: LYNNE hernandez Ras Stanford MD GENERAL ANESTHESIA O RDERABLES * XR KNEE BILAT ONE OR TWO VIEWS (10/15/2013 9:11 AM CDT) Anatomical Region Laterality Modality Lower Extremity Radiographic Nati ging Narrative 10/15/2013 9:11 AM CDT RT Rufina(R) 10/15/2013 9:11 AM See progress notes for results Procedure Note Rosie Hudson, RT(R) - 10/15/2013 9:11 AM CDT See progress notes for results Ras Stanford MD DIAGNOSTIC IMAGING O RDERABLES Care Teams Transmission Line Engineer Relationship Specialty Start Date End Date Patricia Lassiter MD [address] [place] [address] PCP - General Family Medicine 10/15/13 Ras Stanford MD Orthopedic Surgery 01/10/12
== END 2024-08-05 15:08 | disposition home or self-care (01) ==
PROVIDERS: PCP Family Medicine; Visit Provider Nurse Practitioner Adult Health
DX: S12.9XXA Fracture of neck, unspecified, initial encounter (principal); X58.XXXA Exposure to other specified factors, initial encounter
CPT/HCPCS: 72040; 72125